=== PATIENT | female | born 1960 ===

== ENCOUNTER 2024-05-28 10:16 | Outpatient (AMB) | payer BC, SELFPAY ==
[2024-05-28 10:44] VITALS: BP 130/70; PULSE 83; O2SAT 95; BMI 52.1
--- NOTE | 2024-05-28 10:44 | A.OFFVIS_ITS ---
Vital Signs 05/28/24 10:44 Height 5 ft 4 in Weight 303 lb 5.697 oz BMI 52.1 BP 130/70 Blood Pressure Location Lt brachial Pulse 83 Pulse Source Pulse Oximeter Pulse Oximetry (%) 95 Oxygen Delivery Method Room Air Intake Visit Reasons: RA//RECORDS RECEIVED Intake Note: Patient presents today for rheumatoid arthritis. She states it's in her hands and feet. Allergies sulfamethoxazole [From Bactrim] Allergy (Mild, Verified 05/28/24 10:47) rash trimethoprim [From Bactrim] Allergy (Mild, Verified 05/28/24 10:47) rash hair dye Allergy (Mild, Uncoded 05/28/24 10:47) Rash HPI HPI RA//RECORDS RECEIVED: Details: Continues to take HCQ 200mg BID for inflammatory arthritis. She has noted no change in symptoms since being on hydroxychloroquine. 03/25 started Nplate by insulation batting machine operator Dr. Bobby ([place]) in place of promata. Failed prednisone, RTX, promata for ITP. She has recieved platelet infusion. Rheumatology records reviewed from [facility]. Rheumatology history: Referred by insulation batting machine operator for evaluation due to history of ITP and concern for autoimmune disease. Patient was found to have positive rheumatoid factor 48 and anti CCP antibody positivity high titer with clinical synovitis in bilateral MCPs. Although patient with asymptomatic, hydroxych loroquine was started 11/27/2023. Patient has JUDY positivity 1:320 but no other signs or symptoms suggestive of SLE. She also has a history of bursitis of her left shoulder and osteoarthritis of her knee. Review of Systems Const All systems reviewed & are unremarkable except as noted in HPI and below Physical Exam Vital Signs: Last Vital Signs Pulse 83 05/28/24 10:44 BP 130/70 05/28/24 10:44 Pulse Ox 95 05/28/24 10:44 Oxygen Delivery Method Room Air 05/28/24 10:44 BMI result Body Mass Index 52.1 Const General: cooperative and healthy appearing Resp Effort & Inspection: normal respiratory effort Auscultation: clear to auscultation bilaterally Cardio Rate: regular rate Rhythm: regular rhythm Heart sounds: S1 normal heart sound present and S2 normal heart sound present Extrem Other: Soft tissue swelling bilateral MCPs. No tenderness on palpation. Range of motion of upper extremity and lower extremities are intact. No MTP tenderness Results Reviewed Results Reviewed: Labs from 10/28/2023 reviewed from [facility] Assessment & Plan Assessment & Plan (1) Rheumatoid arthritis: Comment: Synovitis in bilateral MCPs are persistent despite being on hydroxychloroquine since November. She denies having pain in MCPs or any functional limitation in her hands. We discussed getting MRI of her right hand to confirm that she has inflammatory arthritis in that the soft tissue swelling is not related to subcutaneous fat as it will change management lead with addition of DMARD therapy. Code(s): M06.9 - Rheumatoid arthritis, unspecified Category: Medical Plan: Continue hydroxychloroquine 400 mg daily Will obtain baseline testing for ocular toxicity with OCT and visual field test Labs ordered for disease and drug monitoring. Patient receives weekly labs prior to Nplate injections as she receives weekly in Hematology office. Patient prefers to have labs done next week in Hematology office. 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 Bobby Code(s): Z86.2 - Personal history of diseases of the blood and blood-forming organs and certain disorders involving the immune mechanism Category: Medical Plan: Treatment per insulation batting machine operator Avoid oral NSAIDs in setting of ITP Plan . Orders: Orders Aspartate Amino Transferase Today M06.9 - Rheumatoid arthritis, unspecified, Z79.899 - Other skilled nursing (current) drug therapy C Reactive Protein Today M06.9 - Rheumatoid arthritis, unspecified, Z79.899 - Other regional intermodal truck driver (current) drug therapy Erythrocyte Sedimentation Rate Today M06.9 - Rheumatoid arthritis, unspecified, Z79.899 - Other regional intermodal truck driver (current) drug therapy MR hand RT w con Today M06.9 - Rheumatoid arthritis, unspecified, Z79.899 - Other regional intermodal truck driver (current) drug therapy Alanine Aminotransferase Today M06.9 - Rheumatoid arthritis, unspecified, Z79.899 - Other skilled nursing (current) drug therapy Complete Blood Count Auto Diff Today M06.9 - Rheumatoid arthritis, unspecified, Z79.899 - Other skilled nursing (current) drug therapy Creatinine Today M06.9 - Rheumatoid arthritis, unspecified, Z79.899 - Other skilled nursing (current) drug therapy Coding Level of Care Code Est Pt Level 4 (93406) Complex EM visit Add On G2211 Diagnoses Rheumatoid arthritis M06.9 Other regional intermodal truck driver (current) drug therapy Z79.899 History of ITP Z86.2
== END 2024-05-28 11:26 | disposition home or self-care (01) ==
PROVIDERS: PCP Internal Medicine; Visit Provider Internal Medicine Rheumatology
DX: M06.9 Rheumatoid arthritis, unspecified (principal); Z79.899 Other long term (current) drug therapy; Z86.2 Personal history of diseases of the blood and blood-forming organs and certain disorders involving the immune mechanism
CPT/HCPCS: 99214

== ENCOUNTER → 2024-05-28 10:16 | Outpatient (BNVA) | payer BC, SELFPAY | PROVIDERS: PCP Internal Medicine; Visit Provider Internal Medicine Rheumatology ==

== ENCOUNTER 2024-06-26 10:05 | Outpatient (AMB) | payer BC, SELFPAY ==
[2024-06-26 10:13] VITALS: BP 128/70; PULSE 94; O2SAT 98; BMI 48.8
--- NOTE | 2024-06-26 10:13 | A.OFFVIS_ITS ---
Vital Signs 06/26/24 10:13 Height 5 ft 4 in Weight 284 lb 6.341 oz BMI 48.8 BP 128/70 Blood Pressure Location Lt brachial Position Sitting Pulse 94 Pulse Source Pulse Oximeter Pulse Oximetry (%) 98 Oxygen Delivery Method Room Air Intake Visit Reasons: Rt knee pain/swelling Intake Note: Patient presents for follow up on right knee paina nd swelling whic has gotten worse since last seen. Allergies sulfamethoxazole [From Bactrim] Allergy (Mild, Verified 06/26/24 10:16) rash trimethoprim [From Bactrim] Allergy (Mild, Verified 06/26/24 10:16) rash hair dye Allergy (Mild, Uncoded 06/26/24 10:16) Rash HPI HPI Rt knee pain/swelling: Details: A week ago her right knee gave out on her and she almost fell. Denies any precipitating incident, motor vehicle accident, fall/slipping. Since a week she has been experiencing right knee pain worse than left knee pain. She has not been self medicating. She stays at home. June 15 platelet count a 122 per patient. Review of Systems Const All systems reviewed & are unremarkable except as noted in HPI and below Physical Exam Vital Signs: Last Vital Signs Pulse 94 06/26/24 10:13 BP 128/70 06/26/24 10:13 Pulse Ox 98 06/26/24 10:13 Oxygen Delivery Method Room Air 06/26/24 10:13 BMI result Body Mass Index 48.8 Const Other: General: Comfortable Skin: No lesions seen MSK: Tender to palpate right knee with mild effusion present. She has limited full flexion of bilateral knees. Bony hypertrophy right knee greater than left knee present. Assessment & Plan Assessment & Plan (1) Knee pain, bilateral: Comment: Right knee pain greater than left knee pain with development of right knee effusion status post knee giving out on her a week ago. She has history of ITP and is at risk for hemarthrosis. It is likely that she has exacerbated underlying osteoarthritis. We discussed conservative management. Code(s): M25.561 - Pain in right knee; M25.562 - Pain in left knee Category: Medical Qualifiers: Chronicity: acute Qualified Code(s): M25.561 - Pain in right knee; M25.562 - Pain in left knee Plan: Bilateral knee x-rays ordered Ice knee twice a day. If we are unable to tolerate ice apply heat to knee twice a day She will contact scientific illustrator/oncologist Dr. Bobby to discuss use of diclofenac gel 1% applied to knee every 4-6 hours as needed Right Knee brace prescribed. Prescription given to patient with medical supply list. If pain and swelling does not subside in 2 weeks, recommend calling office to start physical therapy Return to clinic in July after MRI hand Orders: Orders XR knee standing BI Today M25.561 - Pain in right knee, M25.562 - Pain in left knee Medications: New leg brace (Knee Support Brace) As directed. Hinged knee brace Dx: osteoarthritis 1 ea 0RF leg brace (Knee Support Brace) As directed. Hinged knee brace Dx: osteoarthritis 1 ea 0RF Coding Level of Care Code Est Pt Level 3 (66813) Complex EM visit Add On G2211 Diagnoses Acute pain of both knees M25.561; M25.562 Chronicity: acute
== END 2024-06-26 11:03 | disposition home or self-care (01) ==
PROVIDERS: PCP Internal Medicine; Visit Provider Internal Medicine Rheumatology
DX: M25.561 Pain in right knee (principal); M25.562 Pain in left knee
CPT/HCPCS: 99213

== ENCOUNTER 2024-06-27 10:49 | Outpatient (REF) | payer BC, SELFPAY ==
--- NOTE | ~2024-06-27 | XR_ITS ---
EXAMINATION: XR KNEE, LEFT CLINICAL INFORMATION: PAIN LT KNEE COMPARISON: None available. TECHNIQUE: Two upright views of the left knee. FINDINGS: Mild to moderate osteoarthritis of the medial compartment with marginal osteophytes and mild joint space narrowing. Lateral compartment normal. Patellofemoral compartment: Mild osteoarthritis with marginal osteophytes noted. 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 XR/XR knee LT 2V IMPRESSION: Osteoarthritis of the left knee with degenerative changes mild to moderate in the medial compartment. Bone infarction Electronically signed by: Abhi Mccormick MD 06/28/2024 09:04 PM EST
--- NOTE | ~2024-06-27 | XR_ITS ---
EXAMINATION: XR KNEE, RIGHT CLINICAL INFORMATION: M25.561 - Pain in right knee COMPARISON: None available. TECHNIQUE: Two views of the right knee. FINDINGS: Mild to moderate osteoarthritis the medial compartment with marginal osteophytes and joint space narrowing. Mild osteoarthritis of lateral compartment with marginal osteophytes without joint space narrowing. Patellofemoral compartment: Marginal osteophytes indicative of at least mild osteoarthritis. No effusion. Irregular sclerotic density in the distal femoral metaphysis and proximal tibial metaphysis with appearance most compatible with old bone infarcts. XR/XR knee RT 2V IMPRESSION: Osteoarthritis of the right knee with degenerative changes mild to moderate in the medial compartment. Bone infarction Electronically signed by: Abhi Mccormick MD 06/28/2024 09:03 PM [facility]
== END 2024-06-27 10:50 | disposition home or self-care (01) ==
LOC: HO.HMGCX 10:49
PROVIDERS: PCP Internal Medicine; Visit Provider Internal Medicine Rheumatology
DX: M25.561 Pain in right knee (principal); M25.562 Pain in left knee
CPT/HCPCS: 73560

== ENCOUNTER → 2024-07-18 10:15 | Outpatient (BNV) | payer BC, SELFPAY | PROVIDERS: PCP Internal Medicine; Visit Provider Radiology Diagnostic Radiology | DX: M15.4 Erosive (osteo)arthritis (principal) | CPT/HCPCS: 73220 ==

== ENCOUNTER 2024-07-18 10:42 | Outpatient (REF) | payer BC, SELFPAY ==
--- NOTE | ~2024-07-18 | MR_ITS ---
EXAMINATION: MR HAND WITHOUT THEN WITH IV CONTRAST RIGHT HISTORY: M06.9 - Rheumatoid arthritis, unspecified. TECHNIQUE: Coronal T1 and fat-suppressed T2, sagittal STIR, and axial T1, T2, and fat suppressed T2-weighted MR images of the right hand were obtained. Subsequently, axial and coronal fat-suppressed T1-weighted images were obtained after the intravenous administration of 10 mL Gadavist. COMPARISON: There are no prior studies for comparison. FINDINGS: There are tiny erosions noted in the 2nd and 4th metacarpal heads. There is no adjacent bone marrow edema. No additional erosions is seen. Remaining bone marrow signal intensity is normal. There is mild joint space narrowing involving the MCP joints. No periarticular edema or enhancement is seen. No tendon or ligamentous abnormality is identified. There are no abnormal fluid collections. MR/MR hand RT wo/w con IMPRESSION: Tiny erosions of the 2nd and 4th metacarpal heads mild narrowing of the MCP joints. No bone marrow or soft tissue edema or abnormal enhancement is seen to suggest active inflammation. Electronically signed by: Javon Guerrero MD 07/24/2024 09:40 AM EST
[2024-07-18] MEDS: gadobutroL 10 ML VIAL IVPUSH (12:01)
== END 2024-07-18 10:43 | disposition home or self-care (01) ==
LOC: HO.MRI 10:42
PROVIDERS: PCP Internal Medicine; Visit Provider Internal Medicine Rheumatology
DX: M06.9 Rheumatoid arthritis, unspecified (principal)
CPT/HCPCS: 73220; A9585

== ENCOUNTER 2024-07-29 09:15 | Outpatient (REF) | payer BC, SELFPAY | END 2024-07-29 09:16 | disposition home or self-care (01) | LOC: HO.HOSX 09:15 | PROVIDERS: Visit Provider Physician Assistant | DX: Z13.89 Encounter for screening for other disorder (principal) ==

== ENCOUNTER 2024-07-30 14:00 | Outpatient (REF) | payer BC, SELFPAY | END 2024-07-30 14:01 | disposition home or self-care (01) | LOC: HO.HOSX 14:00 | PROVIDERS: PCP Internal Medicine; Visit Provider Physician Assistant | DX: M25.569 Pain in unspecified knee (principal) ==

== ENCOUNTER 2024-07-31 09:48 | Outpatient (AMB) | payer BC, SELFPAY ==
--- NOTE | 2024-07-31 09:59 | A.OFFVIS_ITS ---
Vital Signs 07/31/24 10:00 Height 5 ft 4 in Weight 280 lb BMI 48.1 BP 128/72 Blood Pressure Location Lt brachial Position Sitting Pulse 82 Pulse Source Pulse Oximeter Pulse Oximetry (%) 98 Oxygen Delivery Method Room Air Intake Visit Reasons: Follow up 2 mo Intake Note: Patient presents for follow up on knee pain. She would like to talk about her x- rays. Patient would like to talk about hydroxychloroquine. Allergies sulfamethoxazole [From Bactrim] Allergy (Mild, Verified 07/31/24 10:04) rash trimethoprim [From Bactrim] Allergy (Mild, Verified 07/31/24 10:04) rash hair dye Allergy (Mild, Uncoded 07/31/24 10:04) Rash HPI HPI Follow up 2 mo: Details: Improved knee pain. Pain is now intermittent. She d/c tylenol due to benefit with using diclofenac gel 1% (approved use by supervisor knitting). No new joint swelling. Last platelet count [id number] last Monday. Denies morning stiffness. Review of Systems Const All systems reviewed & are unremarkable except as noted in HPI and below Physical Exam Vital Signs: Last Vital Signs Pulse 82 07/31/24 10:00 BP 128/72 07/31/24 10:00 Pulse Ox 98 07/31/24 10:00 Oxygen Delivery Method Room Air 07/31/24 10:00 BMI result Body Mass Index 48.1 Const Other: General: Comfortable CVS: RRR Respiratory: clear to auscultation bilaterally. Good respiratory effort Skin: No lesions seen MSK: No tenderness of any joints. She has soft tissue swelling around MCPs. No synovitis Good range of motion of upper extremities. Knee flexion 100 degrees bilateral. External rotation of bilateral hips is limited. Assessment & Plan Assessment & Plan (1) Rheumatoid arthritis: Comment: Seropositive (RF, CCP, JUDY high titer). MRI reveals tiny joint erosion right 2nd and 4th MCPs with joint space narrowing. There is no mention of synovitis (sign of active inflammatory arthritis). She is currently on hydroxychloroquine. She denies joint pain and stiffness. We discussed changing hydroxychloroquine to methotrexate to prevent radiographic progression of inflammatory arthritis as methotrexate as a better agent to use. We discussed risk of immunosuppression including bone marrow suppression. I will monitor her CBC monthly. Code(s): M06.9 - Rheumatoid arthritis, unspecified Category: Medical Plan: Discontinue hydroxychloroquine Labs up-to-date from 06/28/2024 Start methotrexate 10 mg once weekly Start folic acid 1 mg daily Lab requisition given to patient to have CBC checked monthly and creatinine, AST, ALT checked next month. She does labs weekly at her supervisor knitting's office. 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 Bobby Code(s): Z86.2 - Personal history of diseases of the blood and blood-forming organs and certain disorders involving the immune mechanism Category: Medical Plan: Treatment per supervisor knitting Avoid oral NSAIDs in setting of ITP (4) Osteoarthritis of knees, bilateral: Comment: Improved pain with bracing and diclofenac gel. Code(s): M17.0 - Bilateral primary osteoarthritis of knee Category: Medical Qualifiers: Osteoarthritis type: primary Qualified Code(s): M17.0 - Bilateral primary osteoarthritis of knee Plan: Continue to use diclofenac gel 1% applied to affected area every 4-6 hours as needed Continue to use knee brace I recommended obtaining ice knee wrap from [employer] when needed for knee flares PT ordered. She has an upcoming PT appointment for knee strengthening. We discussed importance of consistency with exercise program at home Return to clinic in 3 months Plan . Orders: Orders Alanine Aminotransferase 1 Month Z79.60 - adjunct faculty for medical terminology (current) use of unspecified immunomodulators and immunosuppressants Aspartate Amino Transferase 1 Month Z79.60 - correction (current) use of unspecified immunomodulators and immunosuppressants Complete Blood Count Auto Diff 08/31/24 Z79.60 - adjunct faculty for medical terminology (current) use of unspecified immunomodulators and immunosuppressants Complete Blood Count Auto Diff 10/30/24 Z79.60 - adjunct faculty for medical terminology (current) use of unspecified immunomodulators and immunosuppressants Complete Blood Count Auto Diff 02/27/25 Z79.60 - correction (current) use of unspecified immunomodulators and immunosuppressants Complete Blood Count Auto Diff 04/28/25 Z79.60 - correction (current) use of unspecified immunomodulators and immunosuppressants Complete Blood Count Auto Diff 06/27/25 Z79.60 - correction (current) use of unspecified immunomodulators and immunosuppressants Complete Blood Count Auto Diff 1 Month Z79.60 - adjunct faculty for medical terminology (current) use of unspecified immunomodulators and immunosuppressants Creatinine 1 Month Z79.60 - adjunct faculty for medical terminology (current) use of unspecified immunomodulators and immunosuppressants Complete Blood Count Auto Diff 09/30/24 Z79.60 - adjunct faculty for medical terminology (current) use of unspecified immunomodulators and immunosuppressants Complete Blood Count Auto Diff 11/29/24 Z79.60 - correction (current) use of unspecified immunomodulators and immunosuppressants Complete Blood Count Auto Diff 12/29/24 Z79.60 - correction (current) use of unspecified immunomodulators and immunosuppressants Complete Blood Count Auto Diff 01/28/25 Z79.60 - correction (current) use of unspecified immunomodulators and immunosuppressants Complete Blood Count Auto Diff 03/29/25 Z79.60 - correction (current) use of unspecified immunomodulators and immunosuppressants Complete Blood Count Auto Diff 05/28/25 Z79.60 - adjunct faculty for medical terminology (current) use of unspecified immunomodulators and immunosuppressants Complete Blood Count Auto Diff 07/27/25 Z79.60 - adjunct faculty for medical terminology (current) use of unspecified immunomodulators and immunosuppressants Medications: New folic acid 1 mg PO DAILY 90 tabs 3RF methotrexate sodium 10 mg (4 x 2.5 mg) PO QWEEK 16 tabs 0RF Coding Level of Care Code Est Pt Level 4 (67862) Complex EM visit Add On G2211 Diagnoses Rheumatoid arthritis M06.9 Other jail (current) drug therapy Z79.899 History of ITP Z86.2 Primary osteoarthritis of both knees M17.0 Osteoarthritis type: primary
[2024-07-31 10:00] VITALS: BP 128/72; PULSE 82; O2SAT 98; BMI 48.1
== END 2024-07-31 10:48 | disposition home or self-care (01) ==
PROVIDERS: PCP Internal Medicine; Visit Provider Internal Medicine Rheumatology
DX: M06.9 Rheumatoid arthritis, unspecified (principal); Z79.899 Other long term (current) drug therapy; Z86.2 Personal history of diseases of the blood and blood-forming organs and certain disorders involving the immune mechanism; M17.0 Bilateral primary osteoarthritis of knee
CPT/HCPCS: 99214

== ENCOUNTER 2024-09-04 10:00 | Outpatient (RCR) | payer BC, SELFPAY ==
--- NOTE | 2024-08-20 13:22 | MHC.PT.EP ---
[facility] [place] Office [place] Office [place] Office [address] [phone] F: [phone] F: [phone] F: [phone] F: [phone] Physical Therapy Plan of Care Date of Evaluation: 08/20/24 Date of Surgery: Diagnosis: knee pain bilateral Assessment: Patient is a 64 year old R handed female who presents with s/s consistent with bilateral knee pain. 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 Current impairments include pain, balance, ROM, strength, activity tolerance and functional mobility. Functional limitations include decreased ability to transfer, stand, walk, negotiate stairs, and perform other weight bearing activities. Patient is motivated with good rehab potential. Skilled PT will address impairments and functional limitations in order to achieve goals. Frequency and Duration: The patient will be seen 1x/week for 6 weeks Short Term Goals: I with HEP -2 weeks AROM b/l 0-120 - 3 weeks TTP absent - 3 weeks Max pain with daily routine 3/10 - 3 weeks Appeals Writer Goals: LEFS 36/80 - 6 weeks Strength 4/5 grossly - 6 weeks Able to walk 20 minutes without increasing pain - 6 weeks Treatment Plan: Modalities to reduce pain, spasms and effusion. Manual therapy to restore motion and function. Therapeutic exercise to improve strength and flexibility. Neuromuscular re-education for posture and balance. Therapeutic activities to return to functional activities of daily living. Electronically signed by: Colin Gale PT Please sign and return to therapist. Thank you for your referral.
--- NOTE | 2024-10-02 10:54 | MHC.PT.DC ---
[facility] [place] Office [place] Office [place] Office [address] Charlee [place] [address] [phone] F: [phone] F: [phone] F: [phone] F: [phone] Physical Therapy Discharge Report Diagnosis: knee pain bilateral Date of Surgery: Date of Evaluation: 08/20/24 Date of Discharge: 09/12/24 Treatments to Date: 2 Cancellations to Date: No Shows to Date: Discharge Status: Patient Elected to Stop Discharge Summary: 09/04; Pt fatigued quickly. Patient is a 64 year old R handed female who presents with s/s consistent with bilateral knee pain. 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 Current impairments include pain, balance, ROM, strength, activity tolerance and functional mobility. Functional limitations include decreased ability to transfer, stand, walk, negotiate stairs, and perform other weight bearing activities. Patient is motivated with good rehab potential. Skilled PT will address impairments and functional limitations in order to achieve goals. Electronically signed by: Colin Gale, PT Please sign and return to therapist. Thank you for your referral.
== END 2024-10-02 10:55 | disposition home or self-care (01) ==
LOC: HO.PTCHIC 10:00
PROVIDERS: PCP Internal Medicine; Visit Provider Internal Medicine Rheumatology
DX: M17.0 Bilateral primary osteoarthritis of knee (principal); M87.9 Osteonecrosis, unspecified; M25.561 Pain in right knee; M25.562 Pain in left knee
CPT/HCPCS: 97110; 97162

== ENCOUNTER 2024-10-02 11:41 | Outpatient (REF) | payer BC, SELFPAY ==
[2024-10-02 18:11] LABS: MANUAL DIFF FLAG NO
[2024-10-02 18:36] LABS: Alanine Aminotransferase 13 U/L (0-31); Aspartate Amino Transferase 17 U/L (5-31); Estimated Glomerular Filt Rate > 60
[2024-10-02 18:39] LABS: Basophils Percent Auto 0.3 % (0-2); Eosinophils Absolute Auto 0.2 X10*3/uL (0.0-0.4); Eosinophils Percent Auto 1.3 % (0-4); Hematocrit 40.7 % (37.0-47.0); Hemoglobin 13.9 g/dl (12.0-16.0); Imm Gran Abs Auto 0.07 X10*3/uL (0.00-0.03); Imm Gran Pct Auto 0.6 % (0.0-0.4); Lymphocytes Percent Auto 25.4 % (20-40); Mean Corpuscular HGB Conc 34.2 g/dl (31.0-35.0); Mean Corpuscular Hemoglobin 30.8 pg (27.0-33.0); Mean Corpuscular Volume 90.2 fL (80.0-98.0); Monocytes Percent Auto 8.2 % (2-11); Neutrophils Absolute Auto 7.6 x10*3/uL (2.0-8.3); Neutrophils Percent Auto 64.2 % (45-73); Red Blood Count 4.51 X10*6/uL (4.20-5.50); Red Cell Distribution Width 14.2 % (11.0-16.0); White Blood Count 11.9 X10*3/uL (4.8-10.8)
[2024-10-02 18:58] LABS: Mean Platelet Volume 12.4 fL (9.4-12.3); Platelet Count 99 X10*3/uL (160-400)
== END 2024-10-02 11:42 | disposition home or self-care (01) ==
LOC: HO.HKASLDS 11:41
PROVIDERS: Visit Provider Internal Medicine Rheumatology
DX: Z79.899 Other long term (current) drug therapy (principal); Z79.60 Long term (current) use of unspecified immunomodulators and immunosuppressants; M06.9 Rheumatoid arthritis, unspecified
CPT/HCPCS: 36415; 82565; 84450; 84460; 85025

== ENCOUNTER 2024-10-30 09:34 | Outpatient (REF) | payer BC, SELFPAY ==
--- OUTSIDE RECORDS SUMMARY | 2024-10-30 12:11 | XMS_ITS | Encounter Summary ---
Author Organization [facility] Address [address] [place] [address] Care Team Providers Care Window Sash Installer Name Role Phone Farrah Felder MD Primary Care Provider +[phone] Angelina Holman PA-C Unavailable [phone] Reason for Visit * Reason Onset Date Comments APPOINTMENT 12/07/2022 Encounter Details Date Type Department Care Team Description 12/07/2022 Telephone Radiology - [address] [address] Farrah Felder MD [address] [place] [phone] APPOINTMENT Social History Tobacco Use Types [...] on filedocumented in this encounter Care Teams Window Sash Installer Relationship Specialty Start Date End Date Farrah Felder MD PCP - General Internal Medicine 12/03/21 Angelina Holman PA-C [address] [place] [phone] Thoracic Surgery 09/04/23 documented as of this encounter
--- OUTSIDE RECORDS SUMMARY | 2024-10-30 12:11 | XMS_ITS | Encounter Summary ---
Author Organization [facility] Address [address] [place] [address] Care Team Providers Care Health Science Writer Name Role Phone Farrah Felder MD Primary Care Provider [phone] Angelina Holman PA-C Unavailable [phone] Encounter Details Date Type Department Care Team Description 12/06/2022 Pt. Non Urgent Medical Question Internal Medicine - [place] 175 [facility], [address] [place] [address] Farrah Felder MD [address] [place] [phone] Social History Tobacco Use Types Packs/Day [...] on filedocumented in this encounter Care Teams Health Science Writer Relationship Specialty Start Date End Date Farrah Felder MD PCP - General Internal Medicine 12/03/21 Angelina Holman PA-C [address] [place] [phone] Thoracic Surgery 09/04/23 documented as of this encounter
--- OUTSIDE RECORDS SUMMARY | 2024-10-30 12:11 | XMS_ITS | Encounter Summary ---
Author Organization [facility] Address [address] [place] [address] Care Team Providers Care Object Oriented Programmer Name Role Phone Farrah Felder MD Primary Care Provider +[phone] Angelina Holman PA-C Unavailable [phone] Encounter Details Date Type Department Care Team Description 10/08/2022 Pt. Non Urgent Medical Question Internal Medicine - [address], [address] [place], [place] [phone] Farrah Felder MD [address] [place] [phone] Social History Tobacco Use Types Packs/Day [...] Internal Medicine 12/03/21 Angelina Holman PA-C [address] [place] [phone] Thoracic Surgery 09/04/23 documented as of this encounter
--- OUTSIDE RECORDS SUMMARY | 2024-10-30 12:11 | XMS_ITS | Encounter Summary ---
Author Organization [facility] Address [address] [place] [address] Care Team Providers Care Technology Solutions Architect Name Role Phone Farrah Felder MD Primary Care Provider +[phone] Angelina Holman PA-C Unavailable [phone] Encounter Details Date Type Department Care Team Description 11/01/2022 Telephone Internal Medicine - [address], [address] [place], [place] [phone] Farrah Felder MD [address] [place] [phone] Social History Tobacco Use Types Packs/Day [...] Miscellaneous Notes * Telephone Encounter - Ernestine Rodriguez - 11/07/2022 12:18 PM EDT 3rd [...] on filedocumented in this encounter Care Teams Technology Solutions Architect Relationship Specialty Start Date End Date Farrah Felder MD PCP - General Internal Medicine 12/03/21 Angelina Holman PA-C [address] [place] [phone] Thoracic Surgery 09/04/23 documented as of this encounter
--- OUTSIDE RECORDS SUMMARY | 2024-10-30 12:11 | XMS_ITS | Encounter Summary ---
Author Organization [facility] Address [address] [place] [address] Care Team Providers Care Quirk Sander Name Role Phone Farrah Felder MD Primary Care Provider +[phone] Angelina Holman PA-C Unavailable [phone] Encounter Details Date Type Department Care Team Description 12/16/2022 Refill Internal Medicine - [place] 175 [facility], [address] [place], [place] [phone] Farrah Felder MD [address] [place] [address] Social History Tobacco Use Types Packs/Day [...] on filedocumented in this encounter Care Teams Quirk Sander Relationship Specialty Start Date End Date Farrah Felder MD PCP - General Internal Medicine 12/03/21 Angelina Holman PA-C [address] [phone] Thoracic Surgery 09/04/23 documented as of this encounter
--- OUTSIDE RECORDS SUMMARY | 2024-10-30 12:12 | XMS_ITS | Encounter Summary ---
Author Organization [facility] Address [address] [facility] [place] [address] Care Team Providers Care Water Pollution Control Technician Name Role Phone Farrah Felder MD Primary Care Provider [phone] Angelina Holman PA-C Unavailable Encounter Details Date Type Department Care Team Description 08/15/2023 Heat Sealing Machine Operator Report Medical Records 4 [place] [address] Jose Carlos Ponce MD Social History Tobacco [...] on filedocumented in this encounter Care Teams Water Pollution Control Technician Relationship Specialty Start Date End Date Farrah Felder MD PCP - General Internal Medicine 12/03/21 Angelina Holman PA-C [address] [place] [phone] Thoracic Surgery 09/04/23 documented as of this encounter
--- OUTSIDE RECORDS SUMMARY | 2024-10-30 12:12 | XMS_ITS | Encounter Summary ---
Author Organization [facility] Address [address] [place] [address] Care Team Providers Care Centrifugal Casting Machine Operator Name Role Phone Farrah Felder MD Primary Care Provider [phone] Angelina Holman PA-C Unavailable [phone] Encounter Details Date Type Department Care Team Description 08/08/2023 Pt. Non Urgent Medical Question Internal Medicine - [place] 175 [facility], [address] [place] [address] Farrah Felder MD [address] [place] [phone] Social History Tobacco Use Types Packs/Day [...] on filedocumented in this encounter Care Teams Centrifugal Casting Machine Operator Relationship Specialty Start Date End Date Farrah Felder MD PCP - General Internal Medicine 12/03/21 Angelina Holman PA-C [address] [place] [phone] Thoracic Surgery 09/04/23 documented as of this encounter
--- OUTSIDE RECORDS SUMMARY | 2024-10-30 12:12 | XMS_ITS | Encounter Summary ---
Author Organization [facility] Address [address] [place] [address] Care Team Providers Care Wood Model Maker Name Role Phone Farrah Felder MD Primary Care Provider [phone] Angelina Holman PA-C Unavailable [phone] Encounter Details Date Type Department Care Team Description 07/24/2023 Pt. Non Urgent Medical Question Internal Medicine - [place] 175 [facility], [address] [place] [address] Farrah Felder MD [address] [place] [phone] Social History Tobacco Use Types Packs/Day [...] on filedocumented in this encounter Care Teams Wood Model Maker Relationship Specialty Start Date End Date Farrah Felder MD PCP - General Internal Medicine 12/03/21 Angelina Holman PA-C [address] [place] [phone] Thoracic Surgery 09/04/23 documented as of this encounter
--- OUTSIDE RECORDS SUMMARY | 2024-10-30 12:12 | XMS_ITS | Encounter Summary ---
Author Organization [facility] Address [address] [place] [address] Care Team Providers Care Pilot Instructor Name Role Phone Shama Shafer MD Primary Care Provider [phone] Farrah Felder MD Primary Care Provider [phone] Angelina Holman PA-C Unavailable [phone] Encounter Details Date Type Department Care Team Description 07/17/2017 Slot Supervisor Report Medical Records [address] [place] [address] Olga Lidia Chang PA-C [address] [place] [phone] Social History Tobacco Use Types Packs/Day Years [...] on filedocumented in this encounter Care Teams Pilot Instructor Relationship Specialty Start Date End Date Shama Shafer MD [address] [place] [address] PCP - General Internal Medicine 04/29/11 12/02/21 Farrah Felder MD [address] [place] [address] PCP - General Internal Medicine 12/03/21 Angelina Holman PA-C [address] [phone] Thoracic Surgery 09/04/23 documented as of this encounter
--- OUTSIDE RECORDS SUMMARY | 2024-10-30 12:12 | XMS_ITS | Encounter Summary ---
Author Organization [facility] Address [address] [facility] [place] [address] Care Team Providers Care Worsted Winder Name Role Phone Farrah Felder MD Primary Care Provider +[phone] Angelina Holman PA-C Unavailable [phone] Encounter Details Date Type Department Care Team Description 11/09/2023 Orders Only Medical Records [address] [place] [address] Fabián Suárez MD Social History Tobacco Use [...] Date/Time Associated Diagnosis Comments OUTSIDE LAB Routine 11/08/2023 documented in this encounter Results * OUTSIDE LAB (11/08/2023) [facility] documented in this encounter Visit Diagnoses Not on filedocumented in this encounter Care Teams Worsted Winder Relationship Specialty Start Date End Date Farrah Felder MD PCP - General Internal Medicine 12/03/21 Angelina Holman PA-C [address] [phone] Thoracic Surgery 09/04/23 documented as of this encounter
--- OUTSIDE RECORDS SUMMARY | 2024-10-30 12:12 | XMS_ITS | Encounter Summary ---
Author Organization [facility] Address [address] [facility] [place] [address] Care Team Providers Care Executive Asst Name Role Phone Farrah Felder MD Primary Care Provider [phone] Angelina Holman PA-C Unavailable [phone] Encounter Details Date Type Department Care Team Description 03/09/2023 Orders Only Medical Records 4 [place] [address] Abstract, Provider Social History Tobacco Use Types [...] on filedocumented in this encounter Care Teams Executive Asst Relationship Specialty Start Date End Date Farrah Felder MD PCP - General Internal Medicine 12/03/21 Angelina Holman PA-C [address] [place] [phone] Thoracic Surgery 09/04/23 documented as of this encounter
--- OUTSIDE RECORDS SUMMARY | 2024-10-30 12:12 | XMS_ITS | Encounter Summary ---
Author Organization [facility] Address [address] [facility] [place] [address] Care Team Providers Care Manager Internet Retails Sales Name Role Phone Farrah Felder MD Primary Care Provider [phone] Angelina Holman PA-C Unavailable [phone] Encounter Details Date Type Department Care Team Description 05/11/2023 Orders Only Medical Records [facility] [facility] [place] [address] Fabián Suárez MD Social History Tobacco Use [...] Date/Time Associated Diagnosis Comments OUTSIDE LAB Routine 05/10/2023 documented in this encounter Results * OUTSIDE LAB (05/10/2023) Fabián Suárez MD LAB documented in this encounter Visit Diagnoses Not on filedocumented in this encounter Care Teams Manager Internet Retails Sales Relationship Specialty Start Date End Date Farrah Felder MD PCP - General Internal Medicine 12/03/21 Angelina Holman PA-C [address] [place] [phone] Thoracic Surgery 09/04/23 documented as of this encounter
--- OUTSIDE RECORDS SUMMARY | 2024-10-30 12:12 | XMS_ITS | Encounter Summary ---
Author Organization [facility] [place] [address] Care Team Providers Care Biological Plant Operator Name Role Phone Farrah Felder MD Primary Care Provider [phone] Encounter Details Date Type Department Care Team [...] care for your loved ones. For example, assistant child care teacher or elderly care for an older [...] of next appts provided, pt sees Dr. Bboby prior to next treatment, she will get labs drawn downstairs prior to seeing MD and ask them to send STAT. Pt left amb, stable at D/C. documented in this encounter Plan of Treatment Upcoming Encounters Date Type Department Care Team (Late st Contact Info) Description 11/04/2024 10:00 AM EDT Appointment [facility] [address] [phone] 12/11/2024 10:30 AM EDT Office Visit [facility] Hematology Oncology [address] [place] [address] Michelle-Fabián Bobby MD [address] [place] [address] 03/06/2025 11:30 AM EDT Office Visit Pulmonolgy - [place] [address] [phone] Leisa Infante MD [address] [address] documented as of this encounter Visit Diagnoses Not on filedocumented in this encounter Care Teams Biological Plant Operator Relationship Specialty Start Date End Date Farrah Felder MD PCP - General Internal Medicine 12/03/21 05/12/24 documented as of this encounter
--- OUTSIDE RECORDS SUMMARY | 2024-10-30 12:12 | XMS_ITS | Encounter Summary ---
Author Organization [facility] Address [address] [place] [address] Care Team Providers Care Manager Steel Name Role Phone Farrah Felder MD Primary Care Provider [phone] Angelina Holman PA-C Unavailable [phone] Encounter Details Date Type Department Care Team Description 04/14/2023 Orders Only Medical Records [address] [place] [address] Farrah Felder MD [address] [place] [phone] Social History Tobacco Use Types Packs/Day [...] Date/Time Associated Diagnosis Comments OUTSIDE LAB Routine 04/14/2023 documented in this encounter Results * OUTSIDE LAB (04/14/2023) Farrah Felder MD LAB documented in this encounter Visit Diagnoses Not on filedocumented in this encounter Care Teams Manager Steel Relationship Specialty Start Date End Date Farrah Felder MD PCP - General Internal Medicine 12/03/21 Angelina Holman PA-C [address] [place] [phone] Thoracic Surgery 09/04/23 documented as of this encounter
--- OUTSIDE RECORDS SUMMARY | 2024-10-30 12:12 | XMS_ITS | Encounter Summary ---
Author Organization [facility] Address [address] [place] [address] Care Team Providers Care Flight Surgeon Name Role Phone Farrah Felder MD Primary Care Provider [phone] Angelina Holman PA-C Unavailable [phone] Encounter Details Date Type Department Care Team Description 12/04/2023 Pt. Non Urgent Medical Question Internal Medicine - [address], [address] [place], [place] [phone] Farrah Felder MD [address] [place] [phone] Social History Tobacco Use Types Packs/Day [...] on filedocumented in this encounter Care Teams Flight Surgeon Relationship Specialty Start Date End Date Farrah Felder MD PCP - General Internal Medicine 12/03/21 Angelina Holman PA-C [address] [place] [phone] Thoracic Surgery 09/04/23 documented as of this encounter
--- OUTSIDE RECORDS SUMMARY | 2024-10-30 12:12 | XMS_ITS | Encounter Summary ---
Author Organization [facility] Address [address] [place] [address] Care Team Providers Care Medical Sales Consultant Name Role Phone Farrah Felder MD Primary Care Provider [phone] Angelina Holman PA-C Unavailable Encounter Details Date Type Department Care Team Description 09/04/2023 Front Office Developer Report Medical Records [address] [place] [address] [facility] [address] [place] [address] Social History Tobacco Use Types Packs/Day Years [...] filedocumented in this encounter Care Teams Medical Sales Consultant Relationship Specialty Start Date End Date Farrah Felder MD PCP - General Internal Medicine 12/03/21 Angelina Holman PA-C [address] [phone] Thoracic Surgery 09/04/23 documented as of this encounter
--- OUTSIDE RECORDS SUMMARY | 2024-10-30 12:12 | XMS_ITS | Encounter Summary ---
Author Organization [facility] Address [address] [place] [address] Care Team Providers Care Career Development Counselor Name Role Phone Farrah Felder MD Primary Care Provider [phone] Angelina Holman PA-C Unavailable [phone] Encounter Details Date Type Department Care Team Description 08/08/2023 Pt. Non Urgent Medical Question Internal Medicine - [place] 175 [facility], [address] [place] [address] Farrah Felder MD [address] [place] [phone] Social History Tobacco Use Types Packs/Day [...] on filedocumented in this encounter Care Teams Career Development Counselor Relationship Specialty Start Date End Date Farrah Felder MD PCP - General Internal Medicine 12/03/21 Angelina Holman PA-C [address] [place] [phone] Thoracic Surgery 09/04/23 documented as of this encounter
--- OUTSIDE RECORDS SUMMARY | 2024-10-30 12:12 | XMS_ITS | Encounter Summary ---
Author Organization [facility] Address [address] [facility] [place] [address] Care Team Providers Care Drug Abuse Social Worker Name Role Phone Shama Shafer MD Primary Care Provider [phone] Farrah Felder MD Primary Care Provider [phone] Angelina Holman PA-C Unavailable [phone] Encounter Details Date Type Department Care Team Description 11/25/2016 Telephone Adult Medicine [address] [phone] Shama Shafer MD [address] [place] [address] Social History Tobacco Use Types Packs/Day [...] on filedocumented in this encounter Care Teams Drug Abuse Social Worker Relationship Specialty Start Date End Date Shama Shafer MD [address] [place] [address] PCP - General Internal Medicine 04/29/11 12/02/21 Farrah Felder MD [address] [place], [place] [phone] PCP - General Internal Medicine 12/03/21 Angelina Holman PA-C [address] [phone] Thoracic Surgery 09/04/23 documented as of this encounter
--- OUTSIDE RECORDS SUMMARY | 2024-10-30 12:12 | XMS_ITS | Encounter Summary ---
Author Organization [facility] Address [address] [place] [address] Care Team Providers Care Bargain Table Clerk Name Role Phone Farrah Felder MD Primary Care Provider +[phone] Angelina Holman PA-C Unavailable [phone] Encounter Details Date Type Department Care Team Description 09/06/2023 Pt. Non Urgent Medical Question Pulmonology - [place] [address] [phone] Leisa Infante MD [address] [phone] Social History Tobacco Use Types [...] on filedocumented in this encounter Care Teams Bargain Table Clerk Relationship Specialty Start Date End Date Farrah Felder MD PCP - General Internal Medicine 12/03/21 Angelina Holman PA-C [address] [place] [phone] Thoracic Surgery 09/04/23 documented as of this encounter
--- OUTSIDE RECORDS SUMMARY | 2024-10-30 12:12 | XMS_ITS | Encounter Summary ---
Author Organization [facility] [place] [address] Care Team Providers Care Vehicle Fuel Systems Converter Name Role Phone Farrah Felder MD Primary Care Provider [phone] Encounter Details Date Type Department Care Team [...] for your loved ones. For example, child & adolescent psychiatrist or elderly care for an older adult? [...] [facility] [address] [address] 12/11/2024 10:30 AM EDT Office Visit [facility] Hematology Oncology [address] [place] [address] Michelle-Fabián Bobby MD [address] [place] [address] 03/06/2025 11:30 AM EDT Office Visit Pulmonolgy - [place] [address] [phone] Leisa Infante MD [address] [address] documented as of this encounter Visit Diagnoses Not on filedocumented in this encounter Care Teams Vehicle Fuel Systems Converter Relationship Specialty Start Date End Date Farrah Felder MD PCP - General Internal Medicine 12/03/21 05/12/24 documented as of this encounter
--- OUTSIDE RECORDS SUMMARY | 2024-10-30 12:12 | XMS_ITS | Encounter Summary ---
Author Organization [facility] Address [address] [place] [address] Care Team Providers Care Aircraft Structural Repairer Name Role Phone Farrah Felder MD Primary Care Provider +[phone] Angelina Holman PA-C Unavailable [phone] Encounter Details Date Type Department Care Team Description 09/25/2023 Pt. Non Urgent Medical Question Internal Medicine - [address], [address] [place], [place] [phone] Farrah Felder MD [address] [place] [phone] Social History Tobacco Use Types Packs/Day [...] on filedocumented in this encounter Care Teams Aircraft Structural Repairer Relationship Specialty Start Date End Date Farrah Felder MD PCP - General Internal Medicine 12/03/21 Angelina Holman PA-C [address] [place] [phone] Thoracic Surgery 09/04/23 documented as of this encounter
--- OUTSIDE RECORDS SUMMARY | 2024-10-30 12:12 | XMS_ITS | Encounter Summary ---
Author Organization [facility] Address [address] [place] [address] Care Team Providers Care Continuous Miner Name Role Phone Farrah Felder MD Primary Care Provider +[phone] Angelina Holman PA-C Unavailable [phone] Encounter Details Date Type Department Care Team Description 05/24/2023 Refill Pulmonology - [place] [address] [phone] Leisa Infante MD [address] [place] [phone] Social History Tobacco Use Types Packs/Day [...] Duplicate Mychart Request. * Telephone Encounter - Fanny Samuel - 05/25/2023 10:52 AM EST CARLOS 01/25/23 NOV 05/30/23 documented in this encounter Plan of Treatment Not on file documented as of this encounter Visit Diagnoses Diagnosis Chronic obstructive pulmonary disease, unspecified COPD type (HCC) documented in this encounter Care Teams Continuous Miner Relationship Specialty Start Date End Date Farrah Felder MD PCP - General Internal Medicine 12/03/21 Angelina Holman PA-C [address] [place] [phone] Thoracic Surgery 09/04/23 documented as of this encounter
--- OUTSIDE RECORDS SUMMARY | 2024-10-30 12:12 | XMS_ITS | Encounter Summary ---
Author Organization [facility] Address [address] [facility] [place] [address] Care Team Providers Care Promotions Assistant Name Role Phone Shama Shafer MD Primary Care Provider [phone] Farrah Felder MD Primary Care Provider [phone] Angelina Holman PA-C Unavailable [phone] Encounter Details Date Type Department Care Team Description 07/24/2017 SCAN Medical Records [address] [place] [address] Abstract, Provider Social History Tobacco Use Types [...] on filedocumented in this encounter Care Teams Promotions Assistant Relationship Specialty Start Date End Date Shama Shafer MD [address] [place] [address] PCP - General Internal Medicine 04/29/11 12/02/21 Farrah Felder MD [address] [place] [address] PCP - General Internal Medicine 12/03/21 Angelina Holman PA-C [address] [place] [phone] Thoracic Surgery 09/04/23 documented as of this encounter
--- OUTSIDE RECORDS SUMMARY | 2024-10-30 12:12 | XMS_ITS | Encounter Summary ---
Author Organization [facility] Address [address] [facility] [place] [address] Care Team Providers Care Field Nurse Name Role Phone Farrah Felder MD Primary Care Provider [phone] Angelina Holman PA-C Unavailable [phone] Encounter Details Date Type Department Care Team Description 01/15/2023 Night Triage Doc Medical Records [address] [place] [address] Abstract, Provider Social History Tobacco Use Types [...] on filedocumented in this encounter Care Teams Field Nurse Relationship Specialty Start Date End Date Farrah Felder MD PCP - General Internal Medicine 12/03/21 Angelina Holman PA-C [address] [phone] Thoracic Surgery 09/04/23 documented as of this encounter
--- OUTSIDE RECORDS SUMMARY | 2024-10-30 12:12 | XMS_ITS | Encounter Summary ---
Author Organization [facility] Address [address] [facility] [place] [address] Care Team Providers Care Button Riveter Name Role Phone Farrah Felder MD Primary Care Provider [phone] Angelina Holman PA-C Unavailable [phone] Encounter Details Date Type Department Care Team Description 09/20/2023 On Site Soil Evaluator Report Medical Records [address] [place] [address] Jose Carlos Ponce MD Social History Tobacco [...] on filedocumented in this encounter Care Teams Button Riveter Relationship Specialty Start Date End Date Farrah Felder MD PCP - General Internal Medicine 12/03/21 Angelina Holman PA-C [address] [place] [phone] Thoracic Surgery 09/04/23 documented as of this encounter
--- OUTSIDE RECORDS SUMMARY | 2024-10-30 12:12 | XMS_ITS | Encounter Summary ---
Author Organization [facility] Address [address] [place] [address] Care Team Providers Care Investment Sales Assistant Name Role Phone Shama Shafer MD Primary Care Provider [phone] Farrah Felder MD Primary Care Provider [phone] Angelina Holman PA-C Unavailable [phone] Reason for Visit * Reason Onset Date Comments refill request 03/27/2017 Encounter Details Date Type Department Care Team Description 03/27/2017 Refill OBGYN - [address] [address] Polo La MD refill request Social History [...] EDT WHEN WAS THE PATIENTS LAST ANNUAL STREET PHOTOGRAPHER EXAM? 03-18-16 Does patient have an upcoming [...] FEP STANDARD $25 / Product Type: PPO [id number] documented in this encounter Plan of Treatment Not on file documented as of this encounter Visit Diagnoses Not on filedocumented in this encounter Care Teams Investment Sales Assistant Relationship Specialty Start Date End Date Shama Shafer MD [address] [place] [address] PCP - General Internal Medicine 04/29/11 12/02/21 Farrah Felder MD [address] [place] [address] PCP - General Internal Medicine 12/03/21 Angelina Holman PA-C [address] [place] [phone] Thoracic Surgery 09/04/23 documented as of this encounter
--- OUTSIDE RECORDS SUMMARY | 2024-10-30 12:12 | XMS_ITS | Encounter Summary ---
Author Organization [facility] Address [address] [place] [address] Care Team Providers Care Painter Mirror Name Role Phone Jailene Tapia MD Primary Care Provider Shama Shafer MD Primary Care Provider [phone] Farrah Felder MD Primary Care Provider Angelina Holman PA-C Unavailable [phone] Encounter Details Date Type Department Care Team Description 12/17/2008 Hospital Medical Records [address] [place] [address] Madi Haines MD [address] [place] [address] Social History Tobacco Use Types Packs/Day [...] on filedocumented in this encounter Care Teams Painter Mirror Relationship Specialty Start Date End Date Jailene Tapia MD [address] [place] [address] PCP - General 07/21/08 04/28/11 Shama Shafer MD [address] [place] [address] PCP - General Internal Medicine 04/29/11 12/02/21 Farrah Felder MD [address] [place] [address] PCP - General Internal Medicine 12/03/21 Angelina Holman PA-C [address] [place] [phone] Thoracic Surgery 09/04/23 documented as of this encounter
--- OUTSIDE RECORDS SUMMARY | 2024-10-30 12:12 | XMS_ITS | Encounter Summary ---
Author Organization [facility] Address [address] [place] [address] Care Team Providers Care Inspector Timers Name Role Phone Farrah Felder MD Primary Care Provider [phone] Angelina Holman PA-C Unavailable [phone] Encounter Details Date Type Department Care Team Description 08/07/2023 Pt. Non Urgent Medical Question Internal Medicine - [place] [address] [facility], [address] [place] [address] Farrah Felder MD [address] [place] [phone] Social History Tobacco Use Types Packs/Day [...] on filedocumented in this encounter Care Teams Inspector Timers Relationship Specialty Start Date End Date Farrah Felder MD PCP - General Internal Medicine 12/03/21 Angelina Holman PA-C [address] [place] [phone] Thoracic Surgery 09/04/23 documented as of this encounter
--- OUTSIDE RECORDS SUMMARY | 2024-10-30 12:12 | XMS_ITS | Encounter Summary ---
Author Organization [facility] Address [address] [facility] [place] [address] Care Team Providers Care Brush Polisher Name Role Phone Farrah Felder MD Primary Care Provider [phone] Angelina Holman PA-C Unavailable [phone] Encounter Details Date Type Department Care Team Description 07/19/2023 Orders Only Medical Records [address] [facility] [place] [address] Fabián Suárez MD Social History Tobacco Use [...] Date/Time Associated Diagnosis Comments OUTSIDE LAB Routine 07/18/2023 OUTSIDE LAB Routine 07/11/2023 documented in this encounter Results * OUTSIDE LAB (07/18/2023) Fabián Suárez MD LAB * OUTSIDE LAB (07/11/2023) [facility] documented in this encounter Visit Diagnoses Not on filedocumented in this encounter Care Teams Brush Polisher Relationship Specialty Start Date End Date Farrah Felder MD PCP - General Internal Medicine 12/03/21 Angelina Holman PA-C [address] [place] [phone] Thoracic Surgery 09/04/23 documented as of this encounter
--- OUTSIDE RECORDS SUMMARY | 2024-10-30 12:12 | XMS_ITS | Encounter Summary ---
Author Organization [facility] [place] [address] Care Team Providers Care Computational Scientist Name Role Phone Farrah Felder MD Primary Care Provider [phone] Encounter Details Date Type Department Care Team [...] care for your loved ones. For example, infant childcare provider or elderly care for an [...] Info) Description 11/04/2024 10:00 AM EDT Appointment [facility] Infusion Center [address] [facility] 2nd [place] [address] 12/11/2024 10:30 AM EDT Office Visit [facility] Hematology Oncology [address] [place] [address] Fabián Suárez MD [address] [place] [phone] 03/06/2025 11:30 AM EDT [facility] [address] [place] [address] Leisa Infante MD 175 [facility] [address] [place] [address] documented as of this encounter Visit Diagnoses Not on filedocumented in this encounter Care Teams Computational Scientist Relationship Specialty Start Date End Date Farrah Felder MD PCP - General Internal Medicine 12/03/21 05/12/24 documented as of this encounter
--- OUTSIDE RECORDS SUMMARY | 2024-10-30 12:12 | XMS_ITS | Encounter Summary ---
Author Organization [facility] Address [address] [place] [address] Care Team Providers Care Athletic Instructor Name Role Phone Farrah Felder MD Primary Care Provider [phone] Angelina Holman PA-C Unavailable [phone] Encounter Details Date Type Department Care Team Description 09/05/2023 Orders Only Pulmonology - [place] [address] [address] Leisa Infante MD [address] [phone] Social History Tobacco Use Types [...] on filedocumented in this encounter Care Teams Athletic Instructor Relationship Specialty Start Date End Date Farrah Felder MD PCP - General Internal Medicine 12/03/21 Angelina Holman PA-C [address] [place] [phone] Thoracic Surgery 09/04/23 documented as of this encounter
--- OUTSIDE RECORDS SUMMARY | 2024-10-30 12:12 | XMS_ITS | Encounter Summary ---
Author Organization [facility] Address [address] [place] [address] Care Team Providers Care Bread Oven Operator Name Role Phone Shama Shafer MD Primary Care Provider [phone] Farrah Felder MD Primary Care Provider Angelina Holman PA-C Unavailable [phone] Encounter Details Date Type Department Care Team Description 01/01/2018 Telephone Pulmonology - [place] 175 [facility] [address] [place] [address] Benjamín Doan MD 175 [facility] [address] [place] [address] Social History Tobacco Use Types [...] on filedocumented in this encounter Care Teams Bread Oven Operator Relationship Specialty Start Date End Date Shama Shafer MD [address] [place] [address] PCP - General Internal Medicine 04/29/11 12/02/21 Farrah Felder MD [address] [place] [address] PCP - General Internal Medicine 12/03/21 Angelina Holman PA-C [address] [place] [phone] Thoracic Surgery 09/04/23 documented as of this encounter
--- OUTSIDE RECORDS SUMMARY | 2024-10-30 12:12 | XMS_ITS | Encounter Summary ---
Author Organization [facility] Address [address] [facility] [place] [address] Care Team Providers Care Upholstery Department Supervisor Name Role Phone Farrah Felder MD Primary Care Provider [phone] Angelina Holman PA-C Unavailable [phone] Encounter Details Date Type Department Care Team Description 05/04/2023 Orders Only Medical Records 4 [place] [address] Fabián Suárez MD Social History Tobacco Use [...] on filedocumented in this encounter Care Teams Upholstery Department Supervisor Relationship Specialty Start Date End Date Farrah Felder MD PCP - General Internal Medicine 12/03/21 Angelina Holman PA-C [address] [place] [phone] Thoracic Surgery 09/04/23 documented as of this encounter
--- OUTSIDE RECORDS SUMMARY | 2024-10-30 12:12 | XMS_ITS | Encounter Summary ---
Author Organization [facility] Address [address] [place] [address] Care Team Providers Care Main Entree Cook And Cashier Name Role Phone Shama Shafer MD Primary Care Provider [phone] Farrah Felder MD Primary Care Provider [phone] Angelina Holman PA-C Unavailable [phone] Reason for Visit * Reason Onset Date Comments hospital follow up 12/07/2017 Encounter Details Date Type Department Care Team Description 12/07/2017 Telephone Adult Medicine [address] [phone] Shama Shafer MD [address] [place] [phone] hospital follow up Social History Tobacco Use [...] is returning phone call, asked to call [phone] * Telephone Encounter - Dayday Hayes R.N - 12/14/2017 4:44 PM EDT [phone] (home) Pt called left voice message to [...] at 10:[address]- Ngo at [facility] notified at [phone]. Left reminder message on pts ans. Machine. * Telephone Encounter - Shivani Parks - 12/07/2017 8:50 AM EDT Hospital follow up appointment needed Hospital patient was treated at: [facility] Was this only an ER visit or was the patient admitted to the hospital? Admitted to hospital Date of visit if ER visit only: [id number] If patient was admitted what was the date of discharge? [id number] Reason/diagnosis for visit or stay: COPD When [...] on filedocumented in this encounter Care Teams Main Entree Cook And Cashier Relationship Specialty Start Date End Date Shama Shafer MD [address] [place] [address] PCP - General Internal Medicine 04/29/11 12/02/21 Farrah Felder MD [address] [place] [address] PCP - General Internal Medicine 12/03/21 Angelina Holman PA-C [address] [place] [phone] Thoracic Surgery 09/04/23 documented as of this encounter
--- OUTSIDE RECORDS SUMMARY | 2024-10-30 12:12 | XMS_ITS | Encounter Summary ---
Author Organization [facility] [place] [address] Care Team Providers Care Retail Training Manager Name Role Phone Farrah Felder MD Primary Care Provider [phone] Encounter Details Date Type Department Care Team [...] for your loved ones. For example, child caregiver private home or elderly care for an older adult? [...] Info) Description 11/04/2024 10:00 AM EDT Appointment [facility] Infusion Center [address] [facility] 2nd [place] [address] 12/11/2024 10:30 AM EDT Office Visit [facility] Hematology Oncology [address] [place] [address] Fabián Suárez MD [address] [place] [address] 03/06/2025 11:30 AM EDT Office Visit [facility] [address] [phone] Leisa Infante MD [address] [address] documented as of this encounter Procedures Procedure Name Priority Date/Time Associated Diagnosis Comments ..MISCELLANEOUS REFERENCE LAB TEST 04/15/2024 documented in this encounter Results * Miscellaneous reference lab test (04/15/2024) us Provider Onbase MD LAB BLOOD ORDERABLES Final Re sult documented in this encounter Visit Diagnoses Diagnosis Immune thrombocytopenic purpura (CMS/[facility] V24, CMS/[facility] V28) Immune thrombocytopenic purpura documented in this encounter Care Teams Retail Training Manager Relationship Specialty Start Date End Date Farrah Felder MD PCP - General Internal Medicine 12/03/21 05/12/24 documented as of this encounter
--- OUTSIDE RECORDS SUMMARY | 2024-10-30 12:12 | XMS_ITS | Encounter Summary ---
Author Organization [facility] Address [address] [facility] [place] [address] Care Team Providers Care Parquet Floor Layer'S Helper Name Role Phone Shama Shafer MD Primary Care Provider [phone] Farrah Felder MD Primary Care Provider [phone] Angelina Holman PA-C Unavailable [phone] Encounter Details Date Type Department Care Team Description 10/02/2015 Night Triage Doc Medical Records [address] [place] [address] Abstract, Provider Social History Tobacco Use Types [...] on filedocumented in this encounter Care Teams Parquet Floor Layer'S Helper Relationship Specialty Start Date End Date Shama Shafer MD [address] [place] [address] PCP - General Internal Medicine 04/29/11 12/02/21 Farrah Felder MD [address] [place] [address] PCP - General Internal Medicine 12/03/21 Angelina Holman PA-C [address] [place] [phone] Thoracic Surgery 09/04/23 documented as of this encounter
--- OUTSIDE RECORDS SUMMARY | 2024-10-30 12:12 | XMS_ITS | Encounter Summary ---
Author Organization [facility] Address [address] [facility] [place] [address] Care Team Providers Care Hanger Off Name Role Phone Farrah Felder MD Primary Care Provider [phone] Angelina Holman PA-C Unavailable [phone] Encounter Details Date Type Department Care Team Description 03/02/2023 Orders Only Medical Records 4 [place] [address] Abstract, Provider Social History Tobacco Use Types [...] Name Priority Date/Time Associated Diagnosis Comments OUTSIDE SLEEP STUDY Routine 01/31/2023 documented in this encounter Results * OUTSIDE SLEEP STUDY (01/31/2023) Provider Abstract PULMONOLOGY documented in this encounter Visit Diagnoses Not on filedocumented in this encounter Care Teams Hanger Off Relationship Specialty Start Date End Date Farrah Felder MD PCP - General Internal Medicine 12/03/21 Angelina Holman PA-C [address] [place] [phone] Thoracic Surgery 09/04/23 documented as of this encounter
--- OUTSIDE RECORDS SUMMARY | 2024-10-30 12:12 | XMS_ITS | Encounter Summary ---
Author Organization [facility] Address [address] [facility] [place] [address] Care Team Providers Care Sleeping Car Conductor Name Role Phone Farrah Felder MD Primary Care Provider [phone] Angelina Holman PA-C Unavailable Encounter Details Date Type Department Care Team Description 09/13/2023 Orders Only Medical Records 4 [place] [address] Fabián Suárez MD Social History Tobacco Use [...] on filedocumented in this encounter Care Teams Sleeping Car Conductor Relationship Specialty Start Date End Date Farrah Felder MD PCP - General Internal Medicine 12/03/21 Angelina Holman PA-C [address] [phone] Thoracic Surgery 09/04/23 documented as of this encounter
--- OUTSIDE RECORDS SUMMARY | 2024-10-30 12:12 | XMS_ITS | Encounter Summary ---
Author Organization [facility] Address [address] [place] [address] Care Team Providers Care Fiscal Manager Name Role Phone Farrah Felder MD Primary Care Provider [phone] Angelina Holman PA-C Unavailable [phone] Encounter Details Date Type Department Care Team Description 11/20/2023 Pt. Non Urgent Medical Question Internal Medicine - [address], [address] [place], [place] [phone] Farrah Felder MD [address] [place] [phone] Social History Tobacco Use Types Packs/Day [...] on filedocumented in this encounter Care Teams Fiscal Manager Relationship Specialty Start Date End Date Farrah Felder MD PCP - General Internal Medicine 12/03/21 Aneglina Holman PA-C [address] [place] [phone] Thoracic Surgery 09/04/23 documented as of this encounter
--- OUTSIDE RECORDS SUMMARY | 2024-10-30 12:12 | XMS_ITS | Encounter Summary ---
Author Organization [facility] Address [address] [place] [address] Care Team Providers Care Sheet Music Salesperson Name Role Phone Farrah Felder MD Primary Care Provider [phone] Angelina Holman PA-C Unavailable [phone] Encounter Details Date Type Department Care Team Description 02/03/2023 Pt. Non Urgent Medical Question Pulmonology - [place] [address] [address] Leisa Infante MD [address] [place] [phone] Social History Tobacco Use Types Packs/Day [...] on filedocumented in this encounter Care Teams Sheet Music Salesperson Relationship Specialty Start Date End Date Farrah Felder MD PCP - General Internal Medicine 12/03/21 Angelina Holman PA-C [address] [phone] Thoracic Surgery 09/04/23 documented as of this encounter
--- OUTSIDE RECORDS SUMMARY | 2024-10-30 12:12 | XMS_ITS | Encounter Summary ---
Author Organization [facility] Address [address] [facility] [place] [address] Care Team Providers Care Counterintelligence/Humint Specialist Name Role Phone Shama Shafer MD Primary Care Provider [phone] Farrah Felder MD Primary Care Provider [phone] Angelina Holman PA-C Unavailable [phone] Encounter Details Date Type Department Care Team Description 12/06/2017 Hospital Medical Records [address] [place] [address] Jennifer Dumont MD Social History Tobacco Use Types Packs/Day [...] on filedocumented in this encounter Care Teams Counterintelligence/Humint Specialist Relationship Specialty Start Date End Date Shama Shafer MD 444 [place] [address] PCP - General Internal Medicine 04/29/11 12/02/21 Farrah Felder MD [address] [place] [address] PCP - General Internal Medicine 12/03/21 Angelina Holman PA-C [address] [place] [phone] Thoracic Surgery 09/04/23 documented as of this encounter
--- OUTSIDE RECORDS SUMMARY | 2024-10-30 12:12 | XMS_ITS | Encounter Summary ---
Author Organization [facility] Address [address] [place] [address] Care Team Providers Care Maths Tutor Name Role Phone Farrah Felder MD Primary Care Provider [phone] Angelina Holman PA-C Unavailable [phone] Encounter Details Date Type Department Care Team Description 10/17/2023 Pt. Non Urgent Medical Question Internal Medicine - [address], [address] [place], [place] [phone] Farrah Felder MD [address] [place] [address] Social History Tobacco Use Types Packs/Day [...] on filedocumented in this encounter Care Teams Maths Tutor Relationship Specialty Start Date End Date Farrah Felder MD PCP - General Internal Medicine 12/03/21 Angelina Holman PA-C [address] [place] [phone] Thoracic Surgery 09/04/23 documented as of this encounter
--- OUTSIDE RECORDS SUMMARY | 2024-10-30 12:12 | XMS_ITS | Encounter Summary ---
Author Organization [facility] Address [address] [place] [address] Care Team Providers Care Wad Blanking Press Adjuster Name Role Phone Shama Shafer MD Primary Care Provider [phone] Farrah Felder MD Primary Care Provider +[phone] Angelina Holman PA-C Unavailable [phone] Reason for Visit * Reason Onset Date Comments REFERRAL 11/28/2017 Encounter Details Date Type Department Care Team Description 11/28/2017 Telephone Allergy - [address] [address] Beatriz Garcia MD REFERRAL Social [...] on filedocumented in this encounter Care Teams Wad Blanking Press Adjuster Relationship Specialty Start Date End Date Shama Shafer MD [address] [place] [address] PCP - General Internal Medicine 04/29/11 12/02/21 Farrah Felder MD [address] [place] [address] PCP - General Internal Medicine 12/03/21 Angelina Holman PA-C [address] [place] [phone] Thoracic Surgery 09/04/23 documented as of this encounter
--- OUTSIDE RECORDS SUMMARY | 2024-10-30 12:12 | XMS_ITS | Encounter Summary ---
Author Organization [facility] Address [address] [facility] [place] [address] Care Team Providers Care Coding Support Specialist Name Role Phone Shama Shafer MD Primary Care Provider [phone] Farrah Felder MD Primary Care Provider [phone] Angelina Holman PA-C Unavailable [phone] Encounter Details Date Type Department Care Team Description 09/26/2017 Bit Welder Report Medical Records [address] [place] [address] Ludin Ferrari MD Social History Tobacco Use Types Packs/Day [...] on filedocumented in this encounter Care Teams Coding Support Specialist Relationship Specialty Start Date End Date Shama Shafer MD [address] [place] [address] PCP - General Internal Medicine 04/29/11 12/02/21 Farrah Felder MD [address] [place] [address] PCP - General Internal Medicine 12/03/21 Angelina Holman PA-C [address] [place] [phone] Thoracic Surgery 09/04/23 documented as of this encounter
--- OUTSIDE RECORDS SUMMARY | 2024-10-30 12:12 | XMS_ITS | Encounter Summary ---
Author Organization [facility] Address [address] [facility] [place] [address] Care Team Providers Care Bark Scaler Name Role Phone Farrah Felder MD Primary Care Provider [phone] Angelina Holman PA-C Unavailable [phone] Reason for Visit * Reason Onset Date Comments Director Of Student Financial Aid Feedback 02/21/2023 Encounter Details Date Type Department Care Team Description 02/21/2023 Telephone Pulmonology - [place] [address] [address] Leisa Infante MD [address] [phone] Director Of Student Financial Aid Feedback Social History Tobacco Use Types Packs/Day [...] on filedocumented in this encounter Care Teams Bark Scaler Relationship Specialty Start Date End Date Farrah Felder MD PCP - General Internal Medicine 12/03/21 Angelina Holman PA-C [address] [place] [phone] Thoracic Surgery 09/04/23 documented as of this encounter
--- OUTSIDE RECORDS SUMMARY | 2024-10-30 12:12 | XMS_ITS | Encounter Summary ---
Author Organization [facility] Address [address] [place] [address] Care Team Providers Care Manager Voice Name Role Phone Farrah Felder MD Primary Care Provider Encounter Details Date Type Department Care Team ([facility] Contact Info) Description 07/01/2024 Lab Requisition [facility] - Main Lab [address] [place] [address] Jose Carlos Ponce MD [address] [place] [phone] Rheumatoid arthritis, unspecified (CMS/HCC V24, CMS/HCC V28); Other residential (current) drug therapy Social History Tobacco Use [...] Description 11/04/2024 10:00 AM EDT Appointment [facility] [address] [facility] 2nd [place] [phone] 12/11/2024 10:30 AM EDT Office Visit [facility] Hematology Oncology [address] [place] [phone] Fabián Suárez MD [address] [place] [phone] 03/06/2025 11:30 AM EDT Office Visit Pulmonolgy - [place] [address] [phone] Leisa Infante MD [address] [address] documented as of this encounter Procedures Procedure Name Priority Date/Time Associated Diagnosis Comments CREATININE, SERUM Routine 07/01/2024 9:5 2 AM EST Rheumatoid arthritis, unspecified (CMS/HCC) Other 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 (current) drug therapy SEDIMENTATION RATE Routine 07/01/2024 9: 52 AM EST Rheumatoid arthritis, unspecified (CMS/HCC) Other residential (current) drug therapy C-REACTIVE PROTEIN Routine 07/01/2024 9: 52 AM EST Rheumatoid arthritis, unspecified (CMS/HCC) Other 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 (current) drug therapy ALANINE AMINOTRANSFERASE Routine 9:52 AM EST Rheumatoid arthritis, unspecified (CMS/HCC) Other 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 (current) drug therapy ASPARTATE AMINOTRANSFERASE Routine 07/01/2024 9:52 AM EST Rheumatoid arthritis, unspecified (CMS/HCC) Other 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 (current) drug therapy documented in this encounter Results * Creatinine (07/01/2024 9:52 AM EST) Creatinine 0.72 0.50 - 1.10 mg/dL LAB CHEMISTRY METHOD 07/01/2024 11:23 AM EST [facility] eGFR 92 >=60 mL/min/1. 73m2 LAB CHEMISTRY METHOD 07/01/2024 11:23 AM EST [facility] Comment:Calculation based on the??Chronic Kidney Disease Epidemiology Collaboration (CKD-EPI) equation refit??without adjustment for race. Blood Venous blood specimen / Unknown 07/01/2024 9:52 AM EST 07/01/2024 10:30 AM EST Jose Carlos Ponce MD LAB BLOOD ORDERABLES Padmini l Result Performing Organization Address City/[facility]/ZIP Co de Phone Number [facility] [address] [place] [address], [place] [phone] * Alanine aminotransferase (07/01/2024 9:52 AM EST) ALT (SGPT) 20 10 - 60 unit/L LAB CHEMISTRY METHOD 07/01/2024 11:23 AM EST [facility] Blood Venous blood specimen / Unknown 07/01/2024 9:52 AM EST 07/01/2024 10:30 AM EST Jose Carlos Ponce MD LAB BLOOD ORDERABLES Padmini l Result [facility] [address] [place] [address], [place] [phone] * Aspartate aminotransferase (07/01/2024 9:52 AM EST) AST (SGOT) 10 10 - 42 unit/L LAB CHEMISTRY METHOD 07/01/2024 11:23 AM EST [facility] Blood Venous blood specimen / Unknown 07/01/2024 9:52 AM EST 07/01/2024 10:30 AM EST us Jose Carlos Ponce MD LAB BLOOD ORDERABLES Padmini l Result Performing Organization Address [facility] Co de Phone Number [facility] [address] [place] [address], [place] [phone] * (ABNORMAL) Sedimentation rate (07/01/2024 9:52 AM EST) Sed Rate 70(H) 0 - 30 mm/hr LAB HEMETOLOGY METHOD 07/01/2024 11:03 AM EST [facility] Blood Venous blood specimen / Unknown 07/01/2024 9:52 AM EST 07/01/2024 10:30 AM EST Jose aCrlos Ponce MD LAB BLOOD ORDERABLES Padmini l Result Performing Organization Address [facility] de Phone Number [facility] [address] [place] [address], [place] [phone] * (ABNORMAL) C-reactive protein (07/01/2024 9:52 AM EST) C-Reactive Protein 0.98(H) <=0.50 mg/dL LAB CHEMISTRY METHOD 07/01/2024 11:23 AM EST [facility] Blood Venous blood specimen / Unknown 07/01/2024 9:52 AM EST 07/01/2024 10:30 AM EST Jose Carlos Ponce MD LAB BLOOD ORDERABLES Padmini l Result Performing Organization Address [facility] Co de Phone Number [facility] [address] [place] [address], [place] [phone] documented in this encounter Visit Diagnoses Diagnosis Rheumatoid arthritis, unspecified (CMS/HCC V24, CMS/HCC V28) Other residential (current) drug therapy documented in this encounter Care Teams Manager Voice Relationship Specialty Start Date End Date Farrah Felder MD [address] [place] [phone] PCP - General Internal Medicine 05/13/24 documented as of this encounter
--- OUTSIDE RECORDS SUMMARY | 2024-10-30 12:13 | XMS_ITS | Encounter Summary ---
Author Organization [facility] Address [address] [facility] [place] [address] Care Team Providers Care Ware Server Name Role Phone Shama Shafer MD Primary Care Provider [phone] Farrah Felder MD Primary Care Provider [phone] Angelina Holman PA-C Unavailable [phone] Encounter Details Date Type Department Care Team Description 02/11/2019 Hot Dimpling Machine Operator Report Medical Records [address] [place] [address] [facility] Social History Tobacco Use Types Packs/Day [...] on filedocumented in this encounter Care Teams Ware Server Relationship Specialty Start Date End Date Shama Shafer MD [address] [place] [phone] PCP - General Internal Medicine 04/29/11 12/02/21 Farrah Felder MD [address] [place] [address] PCP - General Internal Medicine 12/03/21 Angelina Holman PA-C [address] [place] [phone] Thoracic Surgery 09/04/23 documented as of this encounter
--- OUTSIDE RECORDS SUMMARY | 2024-10-30 12:13 | XMS_ITS | Encounter Summary ---
Author Organization [facility] Address [address] [place] [address] Care Team Providers Care Assembler Equipment Name Role Phone Shama Shafer MD Primary Care Provider [phone] Farrah Felder MD Primary Care Provider [phone] Angelina Holman PA-C Unavailable [phone] Encounter Details Date Type Department Care Team Description 12/02/2021 Pt. Non Urgent Medical Question Internal Medicine - [address], [address] [place], [place] [phone] Farrah Felder MD [address] [place] [phone] Social History Tobacco Use Types Packs/Day [...] on filedocumented in this encounter Care Teams Assembler Equipment Relationship Specialty Start Date End Date Shama Shafer MD [address] [place] [phone] PCP - General Internal Medicine 04/29/11 12/02/21 Farrah Felder MD [address] [place] [address] PCP - General Internal Medicine 12/03/21 Angelina Holman PA-C [address] [phone] Thoracic Surgery 09/04/23 documented as of this encounter
--- OUTSIDE RECORDS SUMMARY | 2024-10-30 12:13 | XMS_ITS | Encounter Summary ---
Author Organization [facility] Address [address] [place] [address] Care Team Providers Care Lead Teacher Name Role Phone Farrah Felder MD Primary Care Provider [phone] Angelina Holman PA-C Unavailable [phone] Encounter Details Date Type Department Care Team Description 01/29/2024 Pt. Non Urgent Medical Question Internal Medicine - [address], [address] [place], [place] [phone] Farrah Felder MD [address] [place] [phone] Social History Tobacco Use Types Packs/Day [...] filedocumented in this encounter Care Teams Lead Teacher Relationship Specialty Start Date End Date Farrah Felder MD PCP - General Internal Medicine 12/03/21 Angelina Holman PA-C [address] [place] [phone] Thoracic Surgery 09/04/23 documented as of this encounter
--- OUTSIDE RECORDS SUMMARY | 2024-10-30 12:13 | XMS_ITS | Clinical Summary ---
Author Organization [facility] Address [address] [place] [address] Care Team Providers Care E D Tech Name Role Phone Farrah Felder MD Primary Care Provider [phone] Allergies Active Allergy Reactions Criticality Noted Date [...] (Breyna) 160-4.5 mcg/actuation inhalerIndicat ions:COPD with asthma (CMS/[facility] V24, CMS/[facility] V28) Inhale 2 puffs by mouth 2 (two) times a day. Rinse mouth with water after use to reduce aftertaste and incidence of candidiasis. Do not swallow. 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 ([facility] V24, [facility] V28) 05/29/2023 Arthritis 05/01/2023 Acute ITP ([facility] V24, [facility] V28) 02/02/2023 Encounters Date Type Department Care Team Description 10/28/2024 9:30 AM EDT Hospital Encounter [facility] [address] [place] [phone] Fabián Suárez MD Acute ITP ([facility] V24, [facility] V28) (Primary Dx) 10/21/2024 9:14 AM EDT - 10/21/2024 11:59 PM EDT Hospital Encounter [address] [phone] Fabián Suárez MD Acute ITP ([facility] V24, [facility] V28) (Primary Dx) Discharge Disposition: Home or Self Care 10/14/2024 9:15 AM EDT - 10/14/2024 11:59 PM EDT Hospital Encounter [facility] [address] [place] [phone] Fabián Suárez MD Acute ITP ([facility] V24, [facility] V28) (Primary Dx) Discharge Disposition: Home or Self Care 10/07/2024 9:16 AM EDT - 10/07/2024 11:59 PM EDT Hospital Encounter [facility] [address] [place] [phone] Fabián Suárez MD Acute ITP ([facility]/HCC V24, [facility]/HCC V28) (Primary Dx) Discharge Disposition: Home or Self Care 10/01/2024 Telephone [facility] [address] [place] [phone] Fabián Suárez MD 09/30/2024 9:18 AM EDT - 09/30/2024 11:59 PM EDT Hospital Encounter [facility] [address] [place] [phone] Fabián Suárez MD Acute ITP ([facility] V24, [facility] V28) (Primary Dx) Discharge Disposition: Home or Self Care 09/27/2024 Telephone [facility] [address] [place] [phone] Fabián Suárez MD 09/23/2024 9:13 AM EDT - 09/23/2024 11:59 PM EDT Hospital Encounter [facility] [address] [place] [phone] Fabián Suárez MD Acute ITP ([facility] V24, [facility]/HCC V28) (Primary Dx) Discharge Disposition: Home or Self Care 09/18/2024 10:45 AM EDT - 09/18/2024 11:59 PM EDT Hospital En[facility] [address] [place] [phone] Encounter for screening for malignant neoplasm of respiratory organs; Personal history of nicotine dependence Discharge Disposition: Home or Self Care 09/16/2024 9:25 AM EDT - 09/16/2024 11:59 PM EDT Hospital Encounter [facility] [address] [place] [phone] Fabián Suárez MD Acute ITP ([facility] V24, [facility] V28) (Primary Dx) Discharge Disposition: Home or Self Care 09/09/2024 9:30 AM EST - 09/09/2024 11:59 PM EST Hospital Encounter [facility] [address] [place] [phone] Fabián Suárez MD Acute ITP ([facility] V24, [facility] V28) (Primary Dx) Discharge Disposition: Home or Self Care 09/09/2024 9:15 AM EST Office Visit [facility] [address] [place] [phone] Fabián Suárez MD Acute ITP ([facility] V24, [facility] V28) (Primary Dx); Class 3 severe obesity due to excess calories with serious comorbidity and body mass index (BMI) of 50.0 to 59.9 in adult ([facility] V24, [facility] V28); Dehydration; Steroid-induced hyperglycemia 09/06/2024 10:30 AM EST Office Visit Pulmonolgy - [place] 175 [facility] [address] [place] [phone] Leisa Infante MD COPD with asthma ([facility] V24, [facility] V28) (Primary Dx); SHAWN (obstructive sleep apnea); Lung nodules; Ex-smoker 09/02/2024 9:27 AM EST - 09/02/2024 11:59 PM EST Hospital Encounter [facility] [address] [place] [phone] Fabián Suárez MD Acute ITP ([facility] V24, [facility] V28) (Primary Dx) Discharge Disposition: Home or Self Care 08/20/2024 Telephone Lung Screening Program - [place] 299 [facility] [address] [place] [phone] Pati Germain [place] Appointment (1st Notification) 08/19/2024 9:27 AM EST - 08/19/2024 11:59 PM EST Hospital Encounter [facility] [address] [place] [phone] Fabián Suárez MD Acute ITP ([facility] V24, [facility] V28) (Primary Dx) Discharge Disposition: Home or Self Care 08/19/[address] 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 and immunosuppressants 08/12/2024 9:24 AM EST - 08/12/2024 11:59 PM EST Hospital Encounter [facility] [address] [phone] Acute ITP ([facility] V24, [facility] V28) (Primary Dx) Discharge Disposition: Home or Self Care 08/05/2024 9:25 AM EST - 08/05/2024 11:59 PM EST Hospital Encounter [facility] [address] [place] [phone] Fabián Suárez MD Acute ITP ([facility] V24, [facility] V28) (Primary Dx) Discharge Disposition: Home or [...] memo COPD (chronic obstructive pu lmonary disease) ([facility] V24, [facility] V28) 11/13/2017 DX:COPD (chronic o bstructive pulmonary disease) ([facility]) Family History Medical History Relation Name Comments [...] your loved ones. For example, early childhood special educator or elderly care for an older adult? [...] Info) Description 11/04/2024 10:00 AM EDT Appointment [facility] [address] [phone] 12/11/2024 10:30 AM EDT Office Visit [facility] [address] [place] [phone] Michelle-Fabián Bobby MD [address] [place] [phone] 03/06/2025 11:30 AM EDT Office Visit Pulmonolgy - [place] 175 [facility] [address] [place] [phone] Leisa Infante MD 175 [facility] [address] [place] [address] Health Maintenance Due Date Last Done Comments [...] ASPARTATE AMINOTRANSFERASE Routine 08/19/2024 9:50 AM EST USP (current) use of unspecified immunomodulators and immunosuppressants ALANINE AMINOTRANSFERASE Routine 08/19/2024 9:50 AM EST USP (current) use of unspecified immunomodulators and immunosuppressants [...] K/mcL LAB HEMETOLOGY METHOD 10/28/2024 11:09 AM [facility] RBC 4.30 3.80 - 4.80 M/mcL LAB HEMETOLOGY METHOD 10/28/2024 11:09 AM [facility] Hemoglobin 13.4 11.5 - 16.0 g/dL LAB HEMETOLOGY METHOD 10/28/2024 11:09 AM [facility] Hematocrit 40.5 35.0 - 47.0 % LAB HEMETOLOGY METHOD 10/28/2024 11:09 AM [facility] MCV 94.2 79.0 - 98.0 FL LAB HEMETOLOGY METHOD 10/28/2024 11:09 AM [facility] MCH 31.2 27.0 - 32.0 pcg LAB HEMETOLOGY METHOD 10/28/2024 11:09 AM [facility] MCHC 33.1 32.0 - 37.0 g/dL LAB HEMETOLOGY METHOD 10/28/2024 11:09 AM [facility] RDW 13.8 11.0 - 15.0 % LAB HEMETOLOGY METHOD 10/28/2024 11:09 AM [facility] Platelets 158 130 - 400 K/mcL LAB HEMETOLOGY METHOD 10/28/2024 11:09 AM [facility] MPV 11.7(H) 7.0 - 11.0 FL LAB HEMETOLOGY METHOD 10/28/2024 11:09 AM [facility] NRBC 0.0 <1.0 % LAB HEMETOLOGY METHOD 10/28/2024 11:09 AM [facility] NRBC Absolute 0.00 <0.10 K/mcL LAB HEMETOLOGY METHOD 10/28/2024 11:09 AM [facility] Neutrophils Relative 58.6 % LAB HEMETOLOGY METHOD 10/28/2024 11:09 AM [facility] Lymphocytes Relative 29.2 % LAB HEMETOLOGY METHOD 10/28/2024 11:09 AM [facility] Monocytes Relative 8.7 % LAB HEMETOLOGY METHOD 10/28/2024 11:09 AM [facility] Eosinophils Relative 2.4 % LAB HEMETOLOGY METHOD 10/28/2024 11:09 AM [facility] Basophils Relative 0.7 % LAB HEMETOLOGY METHOD 10/28/2024 11:09 AM [facility] Immature Granulocytes Relative 0.4 % LAB HEMETOLOGY METHOD 10/28/2024 11:09 AM [facility] Neutrophils Absolute 6.23 1.50 - 7.00 K/mcL LAB HEMETOLOGY METHOD 10/28/2024 11:09 AM [facility] Lymphocytes Absolute 3.09 1.00 - 5.00 K/mcL LAB HEMETOLOGY METHOD 10/28/2024 11:09 AM [facility] Monocytes Absolute 0.92 0.20 - 1.00 K/[facility] LAB HEMETOLOGY METHOD 10/28/2024 11:09 AM EDT [facility] Eosinophils Absolute 0.25 0.00 - 0.50 K/[facility] LAB HEMETOLOGY METHOD 10/28/2024 11:09 AM EDT [facility] Basophils Absolute 0.07 0.00 - 0.20 K/[facility] LAB HEMETOLOGY METHOD 10/28/2024 11:09 AM EDT [facility] Immature Granulocytes Absolute 0.04(H) 0.00 - 0.03 K/[facility] LAB HEMETOLOGY METHOD 10/28/2024 11:09 AM EDT [facility] Blood Venous blood specimen / Unknown Venipuncture / Unknown 10/28/2024 9:38 AM EDT 10/28/2024 11:02 AM EDT us Fabián Suárez MD LAB BLOOD ORDERABLE S Final Result [facility] [address] [place] [address], [place] [phone] * Lavender tube (10/28/2024 9:38 AM EDT) Extra Tube Hold for add-ons. 10/28/2024 12:01 PM EDT [facility] Comment:Auto resulted. Blood Venous blood specimen / Unknown 10/28/2024 9:38 AM EDT 10/28/2024 10:06 AM EDT Fabián Suárez MD LAB BLOOD ORDERABLE S Final Result [facility] [address] [place] [address], [place] [phone] * CT Lung Screening (09/18/2024 10:55 AM [...] Signed Date: 09/18/2024 13:07 ET Workstation ID: [id number] Transcribed By: Self Edit Transcribed Date: 09/18/2024 [...] Signed Date: 09/18/2024 13:07 ET Workstation ID: [id number] Transcribed By: Self Edit Transcribed Date: 09/18/2024 13:03 ET Rajinder Ozuna MD IM CT PROCEDURES Final Result * (ABNORMAL) Comprehensive metabolic panel (09/02/2024 10:02 AM EST) Sodium 141 133 - 145 mmol/L LAB CHEMISTRY METHOD 09/02/2024 10:46 AM [facility] Potassium 3.7 3.5 - 5.5 mmol/L LAB CHEMISTRY METHOD 09/02/2024 10:46 AM [facility] Chloride 107 96 - 110 mmol/L LAB CHEMISTRY METHOD 09/02/2024 10:46 AM [facility] CO2 24 21 - 32 mmol/L LAB CHEMISTRY METHOD 09/02/2024 10:46 AM [facility] Anion Gap 10 3 - 11 LAB CHEMISTRY METHOD 09/02/2024 10:46 AM [facility] Glucose 121(H) 70 - 100 mg/dL LAB CHEMISTRY METHOD 09/02/2024 10:46 AM [facility] BUN 11 5 - 25 mg/dL LAB CHEMISTRY METHOD 09/02/2024 10:46 AM [facility] Creatinine 0.66 0.50 - 1.10 mg/dL LAB CHEMISTRY METHOD 09/02/2024 10:46 AM [facility] eGFR 97 >=60 mL/min/1. 73m2 LAB CHEMISTRY METHOD 09/02/2024 10:46 AM [facility] Comment:Calculation based on the??Chronic Kidney Disease Epidemiology Collaboration (CKD-EPI) equation refit??without adjustment for race. BUN/Creatinine Ratio 16.7 LAB CHEMISTRY METHOD 09/02/2024 10:46 AM [facility] Calcium 9.5 8.5 - 10.5 mg/dL LAB CHEMISTRY METHOD 09/02/2024 10:46 AM [facility] AST (SGOT) 9(L) 10 - 42 unit/L LAB CHEMISTRY METHOD 09/02/2024 10:46 AM [facility] ALT (SGPT) 19 10 - 60 unit/L LAB CHEMISTRY METHOD 09/02/2024 10:46 AM [facility] Alkaline Phosphatase 63 42 - 121 unit/L LAB CHEMISTRY METHOD 09/02/2024 10:46 AM [facility] Total Protein 7.6 6.0 - 8.0 g/dL LAB CHEMISTRY METHOD 09/02/2024 10:46 AM [facility] Albumin 3.6 3.2 - 5.0 g/dL LAB CHEMISTRY METHOD 09/02/2024 10:46 AM [facility] Total Bilirubin 0.5 0.0 - 1.4 mg/dL LAB CHEMISTRY METHOD 09/02/2024 10:46 AM [facility] Blood Venous blood specimen / Unknown Venipuncture / Unknown 09/02/2024 10:02 AM EST 09/02/2024 10:14 AM EST us Fabián Suárez MD LAB BLOOD ORDERABLE S Final Result [facility] [address] [place] [address], * Alanine aminotransferase (08/19/2024 9:50 AM EST) ALT (SGPT) 19 10 - 60 unit/L LAB CHEMISTRY METHOD 08/19/2024 10:35 AM [facility] Blood Venous blood specimen / Unknown 08/19/2024 9:50 AM EST 08/19/2024 10:07 AM EST Jose Carlos Ponce MD LAB BLOOD ORDERABLES Padmini l Result Performing Organization Address [facility]/ZIP Co de Phone Number [facility] [address] [place] [address], [place] [phone] * (ABNORMAL) Aspartate aminotransferase (08/19/2024 9:50 AM EST) AST (SGOT) 9(L) 10 - 42 unit/L LAB CHEMISTRY METHOD 08/19/2024 10:35 AM EST [facility] Blood Venous blood specimen / Unknown 08/19/2024 9:50 AM EST 08/19/2024 10:07 AM EST Jose Carlos Ponce MD LAB BLOOD ORDERABLES Padmini l Result Performing Organization Address [facility] de Phone Number [facility] [address] [place] [address], [place] [phone] * SCREENING MAMMOGRAPHY BI 2-VIEW BREAST INC [...] Breast cancer risk category Low (<15%) Location: [facility], [address] [place] [address], [phone], [phone] Procedure Note Kassandra Morataya MD - 05/07/2024 [...] Breast cancer risk category Low (<15%) Location: [facility], [address] [place] [address], [address], [phone] Farrah Felder MD IMG XR PROCEDURES Final Result from Last 3 Months or Most Recently Relevant to Health Maintenance Insurance [facility] MEDICARE Care Teams E D Tech Relationship Specialty Start Date End Date Farrah Felder MD [address] [phone] PCP - General Internal Medicine 05/13/24
--- OUTSIDE RECORDS SUMMARY | 2024-10-30 12:13 | XMS_ITS | Encounter Summary ---
Author Organization [facility] Address [address] [place] [address] Care Team Providers Care Carton Counter Feeder Name Role Phone Farrah Felder MD Primary Care Provider [phone] Angelina Holman PA-C Unavailable [phone] Encounter Details Date Type Department Care Team Description 01/08/2024 Pt. Non Urgent Medical Question Internal Medicine - [address], [address] [place], [place] [phone] Farrah Felder MD [address] [place] [phone] Social History Tobacco Use Types Packs/Day [...] on filedocumented in this encounter Care Teams Carton Counter Feeder Relationship Specialty Start Date End Date Farrah Felder MD PCP - General Internal Medicine 12/03/21 Angelina Holman PA-C [address] [place] [phone] Thoracic Surgery 09/04/23 documented as of this encounter
--- OUTSIDE RECORDS SUMMARY | 2024-10-30 12:13 | XMS_ITS | Encounter Summary ---
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
--- OUTSIDE RECORDS SUMMARY | 2024-10-30 12:13 | XMS_ITS | Encounter Summary ---
Author Organization [facility] Address [address] [facility] [place] [address] Care Team Providers Care Pulmonologist Name Role Phone Farrah Felder MD Primary Care Provider [phone] Angelina Holman PA-C Unavailable [phone] Encounter Details Date Type Department Care Team Description 10/12/2023 Orders Only Medical Records [address] [place] [address] Fabián Suárez MD Social History Tobacco Use [...] Date/Time Associated Diagnosis Comments OUTSIDE LAB Routine 10/11/2023 documented in this encounter Results * OUTSIDE LAB (10/11/2023) [facility] documented in this encounter Visit Diagnoses Not on filedocumented in this encounter Care Teams Pulmonologist Relationship Specialty Start Date End Date Farrah Felder MD PCP - General Internal Medicine 12/03/21 Angelina Holman PA-C [address] [phone] Thoracic Surgery 09/04/23 documented as of this encounter
--- OUTSIDE RECORDS SUMMARY | 2024-10-30 12:13 | XMS_ITS | Encounter Summary ---
Author Organization [facility] Address [address] [place] [address] Care Team Providers Care Shell Trim Tool Setter Name Role Phone Farrah Felder MD Primary Care Provider [phone] Angelina Holman PA-C Unavailable [phone] Encounter Details Date Type Department Care Team Description 02/26/2024 Pt. Non Urgent Medical Question Internal Medicine - [address], [address] [place], [place] [phone] Farrah Felder MD [address] [place] [phone] Social History Tobacco Use Types Packs/Day [...] on filedocumented in this encounter Care Teams Shell Trim Tool Setter Relationship Specialty Start Date End Date Farrah Felder MD PCP - General Internal Medicine 12/03/21 Angelina Holman PA-C [address] [place] [phone] Thoracic Surgery 09/04/23 documented as of this encounter
--- OUTSIDE RECORDS SUMMARY | 2024-10-30 12:13 | XMS_ITS | Encounter Summary ---
Author Organization [facility] Address [address] [facility] [place] [address] Care Team Providers Care Underground Foreman Name Role Phone Shama Shafer MD Primary Care Provider [phone] Farrah Felder MD Primary Care Provider [phone] Angelina Holman PA-C Unavailable [phone] Encounter Details Date Type Department Care Team Description 01/25/2018 Release of Information Medical Records [address] [place] [id number] Abstract, Provider Social History Tobacco Use Types [...] on filedocumented in this encounter Care Teams Underground Foreman Relationship Specialty Start Date End Date Shama Shafer MD [address] [place] [address] PCP - General Internal Medicine 04/29/11 12/02/21 Farrah Felder MD [address] [place] [address] [place] [address] PCP - General Internal Medicine 12/03/21 Angelina Holman PA-C [address] [place] [phone] Thoracic Surgery 09/04/23 documented as of this encounter
--- OUTSIDE RECORDS SUMMARY | 2024-10-30 12:13 | XMS_ITS | Encounter Summary ---
Author Organization [facility] Address [address] [place] [address] Care Team Providers Care Tooling Engineering Tech Name Role Phone Farrah Felder MD Primary Care Provider [phone] Angelina Holman PA-C Unavailable [phone] Encounter Details Date Type Department Care Team Description 02/12/2024 Pt. Non Urgent Medical Question Internal Medicine - [address], [address] [place], [place] [phone] Farrah Fedler MD [address] [place] [phone] Social History Tobacco Use Types Packs/Day [...] on filedocumented in this encounter Care Teams Tooling Engineering Tech Relationship Specialty Start Date End Date Farrah Felder MD PCP - General Internal Medicine 12/03/21 Angelina Holman PA-C [address] [place] [phone] Thoracic Surgery 09/04/23 documented as of this encounter
--- OUTSIDE RECORDS SUMMARY | 2024-10-30 12:13 | XMS_ITS | Encounter Summary ---
Author Organization [facility] Address [address] [facility] [place] [address] Care Team Providers Care Mechanism Assembler Name Role Phone Farrah Felder MD Primary Care Provider [phone] Angelina Holman PA-C Unavailable [phone] Encounter Details Date Type Department Care Team Description 01/09/2024 Orders Only Medical Records [address] [place] [address] Fabián Suárez MD Social History Tobacco Use [...] Date/Time Associated Diagnosis Comments OUTSIDE LAB Routine 01/08/2024 documented in this encounter Results * OUTSIDE LAB (01/08/2024) [facility] documented in this encounter Visit Diagnoses Not on filedocumented in this encounter Care Teams Mechanism Assembler Relationship Specialty Start Date End Date Farrah Felder MD PCP - General Internal Medicine 12/03/21 Angelina Holman PA-C [address] [phone] Thoracic Surgery 09/04/23 documented as of this encounter
--- OUTSIDE RECORDS SUMMARY | 2024-10-30 12:13 | XMS_ITS | Encounter Summary ---
Author Organization [facility] Address [address] [place] [address] Care Team Providers Care Asset Protection Greeter Name Role Phone Shama Shafer MD Primary Care Provider [phone] Farrah Felder MD Primary Care Provider [phone] Angelina Holman PA-C Unavailable [phone] Reason for Visit * Reason Onset Date Comments medication problems 04/26/2013 Encounter Details Date Type Department Care Team Description 04/26/2013 Telephone Adult Medicine [address] [phone] Shama Shafer MD [address] [place] [phone] medication problems Social History Tobacco Use Types [...] Plan: FEP STANDARD $20 Product Type: PPO [id number] documented in this encounter Plan of Treatment Not on file documented as of this encounter Visit Diagnoses Not on filedocumented in this encounter Care Teams Asset Protection Greeter Relationship Specialty Start Date End Date Shama Shafer MD [address] [place] [address] PCP - General Internal Medicine 04/29/11 12/02/21 Farrah Felder MD [address] [place] [address] PCP - General Internal Medicine 12/03/21 Angelina Holman PA-C [address] [place] [phone] Thoracic Surgery 09/04/23 documented as of this encounter
--- OUTSIDE RECORDS SUMMARY | 2024-10-30 12:13 | XMS_ITS | Encounter Summary ---
Author Organization [facility] Address [address] [place] [address] Care Team Providers Care Glazier Artist Name Role Phone Farrah Felder MD Primary Care Provider [phone] Angelina Holman PA-C Unavailable [phone] Encounter Details Date Type Department Care Team Description 02/05/2024 Pt. Non Urgent Medical Question Internal Medicine - [address], [address] [place], [place] [phone] Farrah Felder MD [address] [place] [phone] Social History Tobacco Use Types Packs/Day [...] on filedocumented in this encounter Care Teams Glazier Artist Relationship Specialty Start Date End Date Farrah Felder MD PCP - General Internal Medicine 12/03/21 Angelina Holman PA-C [address] [place] [phone] Thoracic Surgery 09/04/23 documented as of this encounter
--- OUTSIDE RECORDS SUMMARY | 2024-10-30 12:13 | XMS_ITS | Clinical Summary ---
Author Organization [facility] Address [address] [place] [address] Care Team Providers Care Fuel Cell Systems Engineer Name Role Phone Farrah Felder MD Primary Care Provider [phone] Allergies Active Allergy Reactions Criticality Noted Date [...] age to complete this topic Care Teams Fuel Cell Systems Engineer Relationship Specialty Start Date End Date Farrah Felder MD 175 [facility] [address] [place] [address] PCP - General Internal Medicine 01/31/23
--- OUTSIDE RECORDS SUMMARY | 2024-10-30 12:13 | XMS_ITS | Encounter Summary ---
Author Organization [facility] Address [address] [place] [address] Care Team Providers Care Waterfront Director Name Role Phone Farrah Felder MD Primary Care Provider [phone] Encounter Details Date Type Department Care Team (Latest Contact Info) Description 08/19/2024 Lab Requisition [facility] - Main Lab [address] [facility] [place] [address] Jose Carlos Ponce MD [address] [place] [phone] superintendent terminal (current) use of unspecified immunomodulators and immunosuppressants [...] for your loved ones. For example, child psychiatrist or elderly care for an older [...] Description 11/04/2024 10:[address] [facility] [address] [facility] 2nd [place] [phone] 12/11/2024 10:30 AM EDT Office Visit [facility] Hematology Oncology [address] [place] [phone] Fabián Suárez MD [address] [place] [address] 03/06/2025 11:30 AM EDT Office Visit Pulmonolgy - [place] [address] [facility] [address] [place] [phone] Leisa Infante MD 175 [facility] 200 [place] [address] documented as of this encounter Procedures Procedure Name Priority Date/Time Associated Diagnosis Comments ALANINE AMINOTRANSFERASE Routine 08/19/2024 9:50 AM EST superintendent terminal (current) use of unspecified immunomodulators and immunosuppressants ASPARTATE AMINOTRANSFERASE Routine 08/19/2024 9:50 AM EST superintendent terminal (current) use of unspecified immunomodulators and immunosuppressants documented in this encounter Results * (ABNORMAL) Aspartate aminotransferase (08/19/2024 9:50 AM EST) AST (SGOT) 9(L) 10 - 42 unit/L LAB CHEMISTRY METHOD 08/19/2024 10:[address] [facility] Blood Venous blood specimen / Unknown 08/19/2024 9:50 AM EST 08/19/2024 10:07 AM EST us Jose Carlos Ponce MD LAB BLOOD ORDERABLES Padmini l Result [facility] [address] [place] [address], * Alanine aminotransferase (08/19/2024 9:50 AM EST) ALT (SGPT) 19 10 - 60 unit/L LAB CHEMISTRY METHOD 08/19/2024 10:[address] [facility] Blood Venous blood specimen / Unknown 08/19/2024 9:50 AM EST 08/19/2024 10:07 AM EST us Jose Carlos Ponce MD LAB BLOOD ORDERABLES Padmini l Result [facility] [address] [place] [address], documented in this encounter Visit Diagnoses Diagnosis superintendent terminal (current) use of unspecified immunomodulators and immunosuppressants documented in this encounter Additional Health Concerns Assessment Noted Time PHQ-9 Depression Total Score: 1 07/11/19 25 3:06 PM EST documented as of this encounter Care Teams Waterfront Director Relationship Specialty Start Date End Date Farrah Felder MD [address] [phone] PCP - General Internal Medicine 05/13/24 documented as of this encounter
--- OUTSIDE RECORDS SUMMARY | 2024-10-30 12:13 | XMS_ITS | Encounter Summary ---
Author Organization [facility] Address [address] [facility] [place] [address] Care Team Providers Care Operations Superintendent Name Role Phone Farrah Felder MD Primary Care Provider [phone] Angelina Holman PA-C Unavailable [phone] Encounter Details Date Type Department Care Team Description 03/14/2024 Orders Only Medical Records [address] [place] [address] Fabián Suárez MD Social History Tobacco Use [...] filedocumented in this encounter Care Teams Operations Superintendent Relationship Specialty Start Date End Date Farrah Felder MD PCP - General Internal Medicine 12/03/21 Angelina Holman PA-C [address] [phone] Thoracic Surgery 09/04/23 documented as of this encounter
--- OUTSIDE RECORDS SUMMARY | 2024-10-30 12:13 | XMS_ITS | Encounter Summary ---
Author Organization [facility] Address [address] [place] [address] Care Team Providers Care Senior Project Architect Name Role Phone Shama Shafer MD Primary Care Provider [phone] Farrah Felder MD Primary Care Provider [phone] Angelina Holman PA-C Unavailable [phone] Encounter Details Date Type Department Care Team Description 02/12/2018 Orders Only Adult Medicine [address] [address] Idania Kenney DO Leg edema (Primary Dx); Erysipelas; Pruritus Social History Tobacco Use Types Packs/Day Years Used Date Smoking Tobacco: Former Cigarettes 0.5 31 Q uit: 09/24/2012 Smokeless Tobacco: Former Comments:Started @ age 16- 4 days w/out [...] on file documented as of this encounter Results * (ABNORMAL) FERRITIN ASSAY (02/12/2018 9:19 AM EDT) FERRITIN 533(H) 20 - 350 ng/ml 02/12/2018 10:30 AM EDT [facility] 02/12/2018 9:19 AM EDT 02/12/2018 9:20 AM EDT Idania Cleary Colsumitcco DO LAB [facility] [address] [place] [address] * TSH (02/12/2018 9:19 AM EDT) TSH 0.81 0.40 - 4.00 mIU/ml 02/12/2018 10:30 AM EDT [facility] 02/12/2018 9:19 AM EDT 02/12/2018 9:20 AM EDT Idania Triplett DO LAB Performing Organization Address [facility] Co de Phone Number [address] * (ABNORMAL) COMPREHENSIVE METABOLIC PANEL (02/12/2018 9:19 AM EDT) GLUCOSE 122(H) 70 - 100 mg/dL 02/12/2018 10:30 AM T [facility] Comment: Reference range applicable to fasting specimens only Based on recommendations from the ADA and AACE, the fasting glucose reference range has been changed to 70-100 mg/dL. ??This change is effective November 23, 2009 BUN 12 5 - 25 mg/dL 02/12/2018 10:30 AM [facility] CREAT 0.6(L) 0.7 - 1.5 mg/dL 02/12/2018 10:30 AM [facility] BUN/CREAT RATIO 20.0 6.0 - 20.0 02/12/2018 10:30 AM [facility] GFR > 60 >60 02/12/2018 10:31 AM T [facility] Comment: If patient is -Austrian, multiply result by 1.21 Chronic Kidney Disease: < 60 ml/min/1.73 square meters Kidney Failure: < 15 ml/min/1.73 square meters Sodium 141 133 - 145 mEq/L 02/12/2018 10:30 AM EDT [facility] Potassium 4.9 3.5 - 5.5 mEq/L 02/12/2018 10:30 AM EDT [facility] Chloride 106 96 - 108 mEq/L 02/12/2018 10:30 AM EDT [facility] CO2 23.4 21.0 - 32.0 mEq/L 02/12/2018 10:30 AM EDT [facility] CALCIUM 9.2 8.5 - 10.5 mg/dL 02/12/2018 10:30 AM EDT [facility] TOTAL PROTEIN 6.9 6.0 - 8.3 gm/dL 02/12/2018 10:30 AM EDT [facility] Albumin 3.8 3.2 - 5.6 gm/dL 02/12/2018 10:30 AM EDT [facility] GLOBULIN 3.1 1.9 - 4.4 gm/dL 02/12/2018 10:30 AM EDT [facility] A/G RATIO 1.2 1.1 - 2.3 02/12/2018 10:30 AM EDT [facility] BILI,TOTAL 0.2 0.0 - 1.2 mg/dL 02/12/2018 10:30 AM EDT [facility] AST (SGOT) 20 10 - 42 U/L 02/12/2018 10:30 AM EDT [facility] ALT( SGPT) 37 10 - 60 U/L 02/12/2018 10:30 AM EDT [facility] ALK PHOS 55 42 - 121 U/L 02/12/2018 10:30 AM EDT [facility] 02/12/2018 9:19 AM EDT 02/12/2018 9:20 AM EDT Idania Triplett DO LAB [facility] [address] [facility] documented in this encounter Visit Diagnoses Diagnosis Leg edema- Primary Edema Erysipelas Pruritus Unspecified pruritic disorder documented in this encounter Care Teams Senior Project Architect Relationship Specialty Start Date End Date Shama Shafer MD [address] [place] [address] PCP - General Internal Medicine 04/29/11 12/02/21 Farrah Felder MD [address] [place] [address] PCP - General Internal Medicine 12/03/21 Angelina Holman PA-C [address] [place] [phone] Thoracic Surgery 09/04/23 documented as of this encounter
--- OUTSIDE RECORDS SUMMARY | 2024-10-30 12:13 | XMS_ITS | Encounter Summary ---
Author Organization [facility] Address [address] [facility] [place] [address] Care Team Providers Care Heel Builder Machine Name Role Phone Shama Shafer MD Primary Care Provider [phone] Farrah Felder MD Primary Care Provider [phone] Angelina Holman PA-C Unavailable [phone] Encounter Details Date Type Department Care Team Description 11/21/2017 SCAN Medical Records [address] [place] [id number] Abstract, Provider Social History Tobacco Use Types [...] on filedocumented in this encounter Care Teams Heel Builder Machine Relationship Specialty Start Date End Date Shama Shafer MD [address] [place] [address] PCP - General Internal Medicine 04/29/11 12/02/21 Farrah Felder MD [address] [place] [address] PCP - General Internal Medicine 12/03/21 Angelina Holman PA-C [address] [place] [phone] Thoracic Surgery 09/04/23 documented as of this encounter
--- OUTSIDE RECORDS SUMMARY | 2024-10-30 12:13 | XMS_ITS | Encounter Summary ---
Author Organization [facility] Address [address] [place] [address] Care Team Providers Care Ski Patroller Name Role Phone Farrah Felder MD Primary Care Provider [phone] Angelina Holman PA-C Unavailable [phone] Encounter Details Date Type Department Care Team Description 01/22/2024 Pt. Non Urgent Medical Question Internal Medicine - [address], [address] [place], [place] [phone] Farrah Felder MD [address] [place] [phone] Social History Tobacco Use Types Packs/Day [...] on filedocumented in this encounter Care Teams Ski Patroller Relationship Specialty Start Date End Date Farrah Felder MD PCP - General Internal Medicine 12/03/21 Angelina Holman PA-C [address] [place] [phone] Thoracic Surgery 09/04/23 documented as of this encounter
--- OUTSIDE RECORDS SUMMARY | 2024-10-30 12:13 | XMS_ITS | Encounter Summary ---
Author Organization [facility] Address [address] [place] [address] Care Team Providers Care Diesel Truck Mechanic Name Role Phone Shama Shafer MD Primary Care Provider [phone] Farrah Felder MD Primary Care Provider [phone] Angelina Holman PA-C Unavailable [phone] Reason for Visit * Reason Onset Date Comments refill request 11/06/2013 Encounter Details Date Type Department Care Team Description 11/06/2013 Refill Adult Medicine [address] [phone] Shama Shafer MD [address] [place] [phone] refill request Social History Tobacco Use Types [...] NO Patients current insurance carrier is: [place]: [place] Plan: FEP STANDARD $20 Product Type: PPO [id number] documented in this encounter Plan of Treatment Not on file documented as of this encounter Visit Diagnoses Not on filedocumented in this encounter Care Teams Diesel Truck Mechanic Relationship Specialty Start Date End Date Shama Shafer MD [address] [place] [address] PCP - General Internal Medicine 04/29/11 12/02/21 Farrah Felder MD [address] [place] [address] PCP - General Internal Medicine 12/03/21 Angelina Holman PA-C [address] [place] [phone] Thoracic Surgery 09/04/23 documented as of this encounter
--- OUTSIDE RECORDS SUMMARY | 2024-10-30 12:13 | XMS_ITS | Encounter Summary ---
Author Organization [facility] Address [address] [place] [address] Care Team Providers Care Skin Drier Name Role Phone Farrah Felder MD Primary Care Provider [phone] Angelina Holman PA-C Unavailable [phone] Encounter Details Date Type Department Care Team Description 01/01/2024 Pt. Non Urgent Medical Question Internal Medicine - [address], [address] [place], [place] [phone] Farrah Felder MD [address] [place] [phone] Social History Tobacco Use Types Packs/Day [...] on filedocumented in this encounter Care Teams Skin Drier Relationship Specialty Start Date End Date Farrah Felder MD PCP - General Internal Medicine 12/03/21 Angelina Holman PA-C [address] [place] [phone] Thoracic Surgery 09/04/23 documented as of this encounter
--- OUTSIDE RECORDS SUMMARY | 2024-10-30 12:13 | XMS_ITS | Encounter Summary ---
Author Organization [facility] Address [address] [place] [address] Care Team Providers Care Plastic Cnc Machine Operator Name Role Phone Farrah Felder MD Primary Care Provider [phone] Angelina Holman PA-C Unavailable [phone] Encounter Details Date Type Department Care Team Description 03/12/2024 Pt. Non Urgent Medical Question Internal Medicine - [address], [address] [place], [place] [phone] Farrah Felder MD [address] [place] [phone] Social History Tobacco Use Types Packs/Day [...] on filedocumented in this encounter Care Teams Plastic Cnc Machine Operator Relationship Specialty Start Date End Date Farrah Felder MD PCP - General Internal Medicine 12/03/21 Angelina Holman PA-C [address] [place] [phone] Thoracic Surgery 09/04/23 documented as of this encounter
--- OUTSIDE RECORDS SUMMARY | 2024-10-30 12:13 | XMS_ITS | Encounter Summary ---
Author Organization [facility] Address [address] [place] [address] Care Team Providers Care Offset Press Operator Apprentice Name Role Phone Farrah Felder MD Primary Care Provider [phone] Angelina Holman PA-C Unavailable [phone] Encounter Details Date Type Department Care Team Description 05/01/2024 Orders Only Internal Medicine - [address], [address] [place], [place] [phone] Farrah Felder MD [address] [place] [phone] Type 2 diabetes mellitus without complication, with long-term current use of insulin (HCC); Essential hypertension, benign; Hyperlipidemia, unspecified hyperlipidemia type Social History Tobacco Use Types Packs/Day Years [...] Procedure Name Priority Date/Time Associated Diagnosis Comments HEMOGLOBIN A1C Routine 04/15/2024 Type 2 diabetes mellitus without complication, with long-term current use of insulin (HCC) Essential hypertension, benign Hyperlipidemia, unspecified hyperlipidemia type documented in this encounter Results * HEMOGLOBIN A1C (04/15/2024) 04/15/2024 Farrah Felder MD LAB [employer] documented in this encounter Visit Diagnoses Diagnosis Type 2 diabetes mellitus without complication, with long-term current use of insulin (HCC) Essential hypertension, benign Hyperlipidemia, unspecified hyperlipidemia type documented in this encounter Care Teams Offset Press Operator Apprentice Relationship Specialty Start Date End Date Farrah Felder MD PCP - General Internal Medicine 12/03/21 Angelina Holman PA-C [address] [place] [phone] Thoracic Surgery 09/04/23 documented as of this encounter
--- OUTSIDE RECORDS SUMMARY | 2024-10-30 12:13 | XMS_ITS | Encounter Summary ---
Author Organization [facility] Address [address] [facility] [place] [address] Care Team Providers Care Environmental Officer Name Role Phone Shama Shafer MD Primary Care Provider [phone] Farrah Felder MD Primary Care Provider Angelina Holman PA-C Unavailable [phone] Encounter Details Date Type Department Care Team Description 11/21/2017 Orders Only Pulmonology - [facility] [address] [facility] [address] [place] [address] Benjamín Doan MD 175 [facility] [address] [place] [phone] Sinus complaint; Obstructive chronic bronchitis with exacerbation (HCC); SHAWN and COPD overlap syndrome (HCC); Centrilobular emphysema (HCC); Obstructive sleep apnea AHI 6; Pulmonary nodules; Former smoker Social History Tobacco Use Types Packs/Day Years [...] Procedure Name Priority Date/Time Associated Diagnosis Comments CHG RADEX SINUSES PARANASAL COMPL MINIMUM 3 VIEWS STAT 11/17/2017 Sinus complaint Obstructive chronic bronchitis with exacerbation (HCC) SHAWN and COPD overlap syndrome (HCC) Centrilobular emphysema (HCC) Obstructive sleep apnea AHI 6 Pulmonary nodules Former smoker documented in this encounter Results * X-RAY EXAM OF SINUSES, COMPLETE (11/17/2017) Narrative Authorizing Provider Result Lon Doan MD RADIOLOGY documented in this encounter Visit Diagnoses Diagnosis Sinus complaint Other symptoms involving respiratory system and chest Obstructive chronic bronchitis with exacerbation (HCC) Obstructive chronic bronchitis with exacerbation SHAWN and COPD overlap syndrome (HCC) Centrilobular emphysema (HCC) Other emphysema Obstructive sleep apnea AHI 6 Obstructive sleep apnea (adult) (pediatric) Pulmonary nodules Other nonspecific abnormal finding of lung field Former smoker Personal history of tobacco use, presenting hazards to health documented in this encounter Care Teams Environmental Officer Relationship Specialty Start Date End Date Shama Shafer MD [address] [place] [address] PCP - General Internal Medicine 04/29/11 12/02/21 Farrah Felder MD [address] [place] [address] PCP - General Internal Medicine 12/03/21 Angelina Holman PA-C [address] [place] [phone] Thoracic Surgery 09/04/23 documented as of this encounter
--- OUTSIDE RECORDS SUMMARY | 2024-10-30 12:13 | XMS_ITS | Encounter Summary ---
Author Organization [facility] Address [address] [place] [address] Care Team Providers Care Sander Hand Name Role Phone Farrah Felder MD Primary Care Provider [phone] Angelina Holman PA-C Unavailable [phone] Encounter Details Date Type Department Care Team Description 03/25/2024 Pt. Non Urgent Medical Question Internal Medicine - [address], [address] [place], [place] [phone] Farrah Felder MD [address] [place] [phone] Social History Tobacco Use Types Packs/Day [...] on filedocumented in this encounter Care Teams Sander Hand Relationship Specialty Start Date End Date Farrah Felder MD PCP - General Internal Medicine 12/03/21 Angelina Holman PA-C [address] [place] [phone] Thoracic Surgery 09/04/23 documented as of this encounter
--- OUTSIDE RECORDS SUMMARY | 2024-10-30 12:13 | XMS_ITS | Encounter Summary ---
Author Organization [facility] Address [address] [facility] [place] [address] Care Team Providers Care Industrial Conveyor Belt Repairer Name Role Phone Shama Shafer MD Primary Care Provider [phone] Farrah Felder MD Primary Care Provider [phone] Angelina Holman PA-C Unavailable [phone] Encounter Details Date Type Department Care Team Description 09/20/2021 Cloth Tester Report Medical Records [address] [place] [address] [place] Social History Tobacco Use Types Packs/Day Years [...] filedocumented in this encounter Care Teams Industrial Conveyor Belt Repairer Relationship Specialty Start Date End Date Shama Shafer MD [address] [place] [address] PCP - General Internal Medicine 04/29/11 12/02/21 Farrah Felder MD [address] [place] [address] PCP - General Internal Medicine 12/03/21 Angelina Holman PA-C [address] [place] [phone] Thoracic Surgery 09/04/23 documented as of this encounter
--- OUTSIDE RECORDS SUMMARY | 2024-10-30 12:13 | XMS_ITS | Encounter Summary ---
Author Organization [facility] Address [address] [place] [address] Care Team Providers Care Roll Filler Name Role Phone Farrah Felder MD Primary Care Provider [phone] Angelina Holman PA-C Unavailable [phone] Encounter Details Date Type Department Care Team Description 12/06/2021 Pt. Non Urgent Medical Question Internal Medicine - [address], [address] [place], [place] [phone] Farrah Felder MD [address] [place] [phone] Social History Tobacco Use Types Packs/Day [...] on filedocumented in this encounter Care Teams Roll Filler Relationship Specialty Start Date End Date Farrah Felder MD PCP - General Internal Medicine 12/03/21 Angelina Holman PA-C [address] [place] [phone] Thoracic Surgery 09/04/23 documented as of this encounter
--- OUTSIDE RECORDS SUMMARY | 2024-10-30 12:13 | XMS_ITS | Encounter Summary ---
Author Organization [facility] Address [address] [place] [address] Care Team Providers Care Vp Integration Name Role Phone Farrah Felder MD Primary Care Provider [phone] Reason for Visit * Episode Based Medications (Routine) - Authorized Specialty Diagnoses / Procedures Referred By Contac t Referred To Contact Diagnoses Acute ITP (CMS/HCC V24, CMS/HCC V28) Fabián Suárez MD [address] [place] [address] Phone: tel: fax: [facility] [address] [place] [phone] Phone: tel: fax: Referral ID Status Reason Start Date Expiration Date V isits Requested Visits Authorized [id number] Authorized 05/08/2024 05/08/2025 1 113 Encounter Details Date Type Department Care Team (Latest Contact Info) Description 10/28/2024 9:30 AM EDT Hospital Encounter [address] [address] Fabián Suárez MD [address] [place] [address] Acute ITP (CMS/HCC V24, CMS/HCC [...] for your loved ones. For example, child support specialist or elderly care for an older adult? [...] Description 11/04/2024 10:00 AM EDT Appointment [facility] [address] [facility] 2nd [place] [phone] 12/11/2024 10:30 AM EDT Office Visit [facility] Hematology Oncology [address] [place] [phone] Fabián Suárez MD [address] [place] [phone] 03/06/2025 11:30 AM EDT Office Visit Pulmonolgy - [place] [address] [phone] Leisa Infante MD [address] [address] documented as of this encounter Procedures Procedure Name Priority Date/Time Associated Diagnosis Comments EXTRA TUBES Routine 10/28/2024 9:38 AM EDT CBC WITH AUTO DIFFERENTIAL STAT 10/28/2024 9:38 AM EDT Acute ITP ([facility]/HCC V24, [facility]/HCC V28) LAVENDER - EDTA Routine 10/28/2024 9:38 AM EDT CBC AND DIFFERENTIAL STAT 10/28/2024 9:38 AM EDT Acute ITP (CMS/HCC V24, CMS/HCC V28) documented in this encounter Results * (ABNORMAL) CBC auto differential (10/28/2024 9:38 AM EDT) WBC 10.6 4.8 - 10.8 K/mcL LAB HEMETOLOGY METHOD 10/28/2024 11:09 AM EDT [facility] RBC 4.30 3.80 - 4.80 M/mcL LAB HEMETOLOGY METHOD 10/28/2024 11:09 AM EDT [facility] Hemoglobin 13.4 11.5 - 16.0 [...] LAB HEMETOLOGY METHOD 10/28/2024 11:09 AM EDT [facility] Basophils Relative 0.7 % LAB HEMETOLOGY METHOD 10/28/2024 11:09 AM [facility] Immature Granulocytes Relative 0.4 % LAB HEMETOLOGY METHOD 10/28/2024 11:09 AM EDT [facility] Neutrophils Absolute 6.23 1.50 - 7.00 K/mcL LAB HEMETOLOGY METHOD 10/28/2024 11:09 AM EDT [facility] Lymphocytes Absolute 3.09 1.00 - 5.00 K/mcL LAB HEMETOLOGY METHOD 10/28/2024 11:09 AM [facility] Monocytes Absolute 0.92 0.20 - 1.00 K/mcL LAB HEMETOLOGY METHOD 10/28/2024 11:09 AM [facility] Eosinophils Absolute 0.25 0.00 - 0.50 K/mcL LAB HEMETOLOGY METHOD 10/28/2024 11:09 AM [facility] Basophils Absolute 0.07 0.00 - 0.20 K/mcL LAB HEMETOLOGY METHOD 10/28/2024 11:09 AM [facility] Immature Granulocytes Absolute 0.04(H) 0.00 - 0.03 K/mcL LAB HEMETOLOGY METHOD 10/28/2024 11:09 AM EDT [facility] Blood Venous blood specimen / Unknown Venipuncture / Unknown 10/28/2024 9:38 AM EDT 10/28/2024 11:02 AM EDT Fabián Suárez MD LAB BLOOD ORDERABLE S Final Result [facility] [address] [place] [address], * Lavender tube (10/28/2024 9:38 AM EDT) Extra Tube Hold for add-ons. 10/28/2024 12:01 PM EDT [facility] Comment:Auto resulted. Blood Venous blood specimen / Unknown 10/28/2024 9:38 AM EDT 10/28/2024 10:06 AM EDT Subrammaribell Suárez MD LAB BLOOD ORDERABLE S Final Result [facility] [address] [place] [address], documented in this encounter Visit Diagnoses Diagnosis Acute ITP (CMS/[facility] V24, CMS/[facility] V28)- Primary Immune thrombocytopenic purpura [...] documented as of this encounter Care Teams Vp Integration Relationship Specialty Start Date End Date Farrah Felder MD 175 [facility] [address] [place] [address] PCP - General Internal Medicine 05/13/24 documented as of this encounter
--- OUTSIDE RECORDS SUMMARY | 2024-10-30 12:13 | XMS_ITS | Encounter Summary ---
Author Organization [facility] Address [address] [place] [address] Care Team Providers Care Ship Manager Name Role Phone Farrah Felder MD Primary Care Provider [phone] Angelina Holman PA-C Unavailable [phone] Encounter Details Date Type Department Care Team Description 02/19/2024 Pt. Non Urgent Medical Question Internal Medicine - [address], [address] [place], [place] [phone] Farrah Felder MD [address] [place] [address] Social History Tobacco Use Types Packs/Day [...] on filedocumented in this encounter Care Teams Ship Manager Relationship Specialty Start Date End Date Farrah Felder MD PCP - General Internal Medicine 12/03/21 Angelina Holman PA-C [address] [place] [phone] Thoracic Surgery 09/04/23 documented as of this encounter
--- OUTSIDE RECORDS SUMMARY | 2024-10-30 12:13 | XMS_ITS | Encounter Summary ---
Author Organization [facility] Address [address] [place] [address] Care Team Providers Care Explosive Operator Fuse Name Role Phone Farrah Felder MD Primary Care Provider [phone] Angelina Holman PA-C Unavailable [phone] Encounter Details Date Type Department Care Team Description 04/22/2024 Pt. Non Urgent Medical Question Internal Medicine - [address], [address] [place], [place] [phone] Farrah Felder MD [address] [place] [phone] Social History Tobacco Use Types Packs/Day [...] Telephone Encounter - Ernestine Yu M.A. - 04/22/2024 9:21 AM EDTFrom: Shruthi Lama To: Magnolia Bradford Sent: 04/22/2024 8:45 AM EDT Subject: Weekly Blood Sugar and Blood Pressure Levels/Refill Request Here are my levels for the week, also I need my Naproxen 500mg refilled for each month due to my arthritis. Thank you. documented in this encounter Plan of Treatment Not on file documented as of this encounter Visit Diagnoses Not on filedocumented in this encounter Care Teams Explosive Operator Fuse Relationship Specialty Start Date End Date Farrah Felder MD PCP - General Internal Medicine 12/03/21 Angelina Holman PA-C [address] [place] [address] Thoracic Surgery 09/04/23 documented as of this encounter
--- OUTSIDE RECORDS SUMMARY | 2024-10-30 12:13 | XMS_ITS | Encounter Summary ---
Author Organization [facility] Address [address] [facility] [place] [address] Care Team Providers Care Nurse Transplant Name Role Phone Farrah Felder MD Primary Care Provider [phone] Angelina Holman PA-C Unavailable [phone] Encounter Details Date Type Department Care Team Description 12/13/2023 Orders Only Medical Records [address] [place] [address] Fabián Suárez MD Social History Tobacco Use [...] Date/Time Associated Diagnosis Comments OUTSIDE LAB Routine 12/12/2023 documented in this encounter Results * OUTSIDE LAB (12/12/2023) [facility] documented in this encounter Visit Diagnoses Not on filedocumented in this encounter Care Teams Nurse Transplant Relationship Specialty Start Date End Date Farrah Felder MD PCP - General Internal Medicine 12/03/21 Angelina Holman PA-C [address] [phone] Thoracic Surgery 09/04/23 documented as of this encounter
--- OUTSIDE RECORDS SUMMARY | 2024-10-30 12:13 | XMS_ITS | Encounter Summary ---
Author Organization [facility] Address [address] [place] [address] Care Team Providers Care Shoe Cementer Name Role Phone Jailene Tapia MD Primary Care Provider [phone] Shama Shafer MD Primary Care Provider [phone] Farrah Felder MD Primary Care Provider [phone] Angelina Holman PA-C Unavailable [phone] Encounter Details Date Type Department Care Team Description 09/11/2009 [facility] Medical Records [address] [place] [address] Nico Alcala MD Social History Tobacco Use [...] on filedocumented in this encounter Care Teams Shoe Cementer Relationship Specialty Start Date End Date Jailene Tapia MD [address] [place] [address] PCP - General 07/21/08 04/28/11 Shama Shafer MD [address] [place] [address] PCP - General Internal Medicine 04/29/11 12/02/21 Farrah Felder MD [address] [place] [address] PCP - General Internal Medicine 12/03/21 Angelina Holman PA-C [address] [place] [phone] Thoracic Surgery 09/04/23 documented as of this encounter
--- OUTSIDE RECORDS SUMMARY | 2024-10-30 12:13 | XMS_ITS | Encounter Summary ---
Author Organization [facility] Address [address] [place] [address] Care Team Providers Care Customer Trainer Name Role Phone Shama Shafer MD Primary Care Provider [phone] Farrah Felder MD Primary Care Provider [phone] Angelina Holman PA-C Unavailable [phone] Encounter Details Date Type Department Care Team Description 07/19/2018 Telephone General Surgery - [address] [place] [address] Lily Benjamin MD [address] [place] [phone] Social History Tobacco Use Types Packs/Day Years [...] encounter Miscellaneous Notes * Telephone Encounter - Diya Baptiste M.A. - 07/19/2018 2:48 PM EST Called patient, left message for return call as no name was stated on voice mail, for results documented in this encounter Plan of Treatment Not on file documented as of this encounter Visit Diagnoses Not on filedocumented in this encounter Care Teams Customer Trainer Relationship Specialty Start Date End Date Shama Shafer MD [address] [place] [address] PCP - General Internal Medicine 04/29/11 12/02/21 Farrah Felder MD [address] [place] [address] PCP - General Internal Medicine 12/03/21 Angelina Holman PA-C [address] [place] [phone] Thoracic Surgery 09/04/23 documented as of this encounter
--- OUTSIDE RECORDS SUMMARY | 2024-10-30 12:13 | XMS_ITS | Encounter Summary ---
Author Organization [facility] Address [address] [place] [address] Care Team Providers Care Heel Attacher Wood Name Role Phone Farrah Felder MD Primary Care Provider [phone] Angelina Holman PA-C Unavailable [phone] Encounter Details Date Type Department Care Team Description 03/18/2024 Pt. Non Urgent Medical Question Internal Medicine - [address], [address] [place], [place] [phone] Farrah Felder MD [address] [place] [address] Social History Tobacco Use Types Packs/Day [...] filedocumented in this encounter Care Teams Heel Attacher Wood Relationship Specialty Start Date End Date Farrah Felder MD PCP - General Internal Medicine 12/03/21 Angelina Holman PA-C [address] [place] [phone] Thoracic Surgery 09/04/23 documented as of this encounter
--- OUTSIDE RECORDS SUMMARY | 2024-10-30 12:13 | XMS_ITS | Encounter Summary ---
Author Organization [facility] Address [address] [place] [address] Care Team Providers Care Waste Specialist Name Role Phone Farrah Felder MD Primary Care Provider [phone] Angelina Holman PA-C Unavailable [phone] Encounter Details Date Type Department Care Team Description 12/11/2023 Pt. Non Urgent Medical Question Internal Medicine - [address], [address] [place], [place] [phone] Farrah Felder MD [address] [place] [address] Social History Tobacco Use Types Packs/Day [...] on filedocumented in this encounter Care Teams Waste Specialist Relationship Specialty Start Date End Date Farrah Felder MD PCP - General Internal Medicine 12/03/21 Angelina Holman PA-C [address] [place] [phone] Thoracic Surgery 09/04/23 documented as of this encounter
--- OUTSIDE RECORDS SUMMARY | 2024-10-30 12:14 | XMS_ITS | Encounter Summary ---
Author Organization [facility] Address [address] [place] [address] Care Team Providers Care Wood Miller Name Role Phone Farrah Felder MD Primary Care Provider [phone] Angelina Holman PA-C Unavailable [phone] Encounter Details Date Type Department Care Team Description 04/12/2024 Pt. Non Urgent Medical Question Pulmonology - [place] [address] [address] Leisa Trujillo MD [address] [address] Social History Tobacco Use Types [...] on file documented as of this encounter Progress Notes * Stefania Griggs - 04/12/2024 3:[address] trujillo Please advise patient mychart message documented in this encounter Miscellaneous Notes * Telephone Encounter - Stefania Griggs - 04/12/2024 3:03 PM EDTFrom: Shruthi Lama To: Sahil Trujillo Sent: 04/12/2024 1:04 PM EDT Subject: Fluticasone Propionate & Salmeterol This is a new medication you prescribed. I???m being told it???s not good to take with the Budesonide & Formaterol inhaler already prescribed. Please advise. documented in this encounter Plan of Treatment Not on file documented as of this encounter Visit Diagnoses Not on filedocumented in this encounter Care Teams Wood Miller Relationship Specialty Start Date End Date Farrah Felder MD PCP - General Internal Medicine 12/03/21 Angelina Holman PA-C [address] [place] [phone] Thoracic Surgery 09/04/23 documented as of this encounter
--- OUTSIDE RECORDS SUMMARY | 2024-10-30 12:14 | XMS_ITS | Encounter Summary ---
Author Organization [facility] Address [address] [place] [address] Care Team Providers Care Certified Orthotist Name Role Phone Farrah Felder MD Primary Care Provider [phone] Angelina Holman PA-C Unavailable [phone] Encounter Details Date Type Department Care Team Description 01/22/2022 Pt. Non Urgent Medical Question Internal Medicine - [address], [address] [place], [place] [phone] Farrah Felder MD [address] [place] [phone] Social History Tobacco Use Types Packs/Day [...] on filedocumented in this encounter Care Teams Certified Orthotist Relationship Specialty Start Date End Date Farrah Felder MD PCP - General Internal Medicine 12/03/21 Angelina Holman PA-C [address] [place] [phone] Thoracic Surgery 09/04/23 documented as of this encounter
--- OUTSIDE RECORDS SUMMARY | 2024-10-30 12:14 | XMS_ITS | Encounter Summary ---
Author Organization [facility] Address [address] [place] [address] Care Team Providers Care Box Worker Name Role Phone Farrah Felder MD Primary Care Provider [phone] Angelina Holman PA-C Unavailable [phone] Encounter Details Date Type Department Care Team Description 06/13/2022 Pt. Non Urgent Medical Question Internal Medicine - [address], [address] [place], [place] [phone] Farrah Felder MD [address] [place] [phone] Routine medical exam (Primary Dx) Social History Tobacco Use Types [...] as of this encounter Visit Diagnoses Diagnosis Routine medical exam- Primary Routine general medical examination at a health care facility documented in this encounter Care Teams Box Worker Relationship Specialty Start Date End Date Farrah Felder MD PCP - General Internal Medicine 12/03/21 Angelina Holman PA-C [address] [place] [phone] Thoracic Surgery 09/04/23 documented as of this encounter
--- OUTSIDE RECORDS SUMMARY | 2024-10-30 12:14 | XMS_ITS | Encounter Summary ---
Author Organization [facility] Address [address] [place] [address] Care Team Providers Care Lunch Cook Name Role Phone Farrah Felder MD Primary Care Provider [phone] Angelina Holman PA-C Unavailable [phone] Encounter Details Date Type Department Care Team Description 04/18/2022 Pt. Non Urgent Medical Question Internal Medicine - [place] [address] [facility], [address] [place] [address] Farrah Felder MD [address] [place] [phone] Social History Tobacco Use Types Packs/Day [...] on filedocumented in this encounter Care Teams Lunch Cook Relationship Specialty Start Date End Date Farrah Fleder MD PCP - General Internal Medicine 12/03/21 Angelina Holman PA-C [address] [phone] Thoracic Surgery 09/04/23 documented as of this encounter
--- OUTSIDE RECORDS SUMMARY | 2024-10-30 12:14 | XMS_ITS | Encounter Summary ---
Author Organization [facility] Address [address] [place] [address] Care Team Providers Care Water Control Station Engineer Name Role Phone Farrah Felder MD Primary Care Provider [phone] Angelina Holman PA-C Unavailable [phone] Encounter Details Date Type Department Care Team Description 04/15/2024 Pt. Non Urgent Medical Question Internal Medicine - [address], [address] [place], [place] [phone] Farrah Felder MD [address] [place] [phone] Social History Tobacco Use Types Packs/Day [...] filedocumented in this encounter Care Teams Water Control Station Engineer Relationship Specialty Start Date End Date Farrah Felder MD PCP - General Internal Medicine 12/03/21 Angelina Holman PA-C [address] [place] [phone] Thoracic Surgery 09/04/23 documented as of this encounter
--- OUTSIDE RECORDS SUMMARY | 2024-10-30 12:14 | XMS_ITS | Encounter Summary ---
Author Organization [facility] Address [address] [place] [address] Care Team Providers Care Furniture Rental Consultant Name Role Phone Farrah Felder MD Primary Care Provider [phone] Angelina Holman PA-C Unavailable [phone] Encounter Details Date Type Department Care Team Description 03/29/2022 Pt. Non Urgent Medical Question Internal Medicine - [place] [address] [facility], [address] [place] [address] Farrah Felder MD [address] [place] [phone] Social History Tobacco Use Types Packs/Day [...] on filedocumented in this encounter Care Teams Furniture Rental Consultant Relationship Specialty Start Date End Date Farrah Felder MD PCP - General Internal Medicine 12/03/21 Angelina Holman PA-C [address] [phone] Thoracic Surgery 09/04/23 documented as of this encounter
--- OUTSIDE RECORDS SUMMARY | 2024-10-30 12:14 | XMS_ITS | Encounter Summary ---
Author Organization [facility] Address [address] [place] [address] Care Team Providers Care Glove Boarder Name Role Phone Farrah Felder MD Primary Care Provider [phone] Angelina Holman PA-C Unavailable [phone] Encounter Details Date Type Department Care Team Description 06/13/2022 Orders Only Internal Medicine - [address], [address] [place], [place] [phone] Farrah Felder MD [address] [place] [phone] Pain of left lower extremity; Positive [...] Procedure Name Priority Date/Time Associated Diagnosis Comments VT DUP-SCAN XTR VEINS UNILATERAL/LIMITED STUDY Routine 06/10/2022 Pain of left lower extremity Positive D dimer documented in this encounter Results * EXTREMITY VEINS STUDY, UNILATERAL (06/10/2022) Farrah Felder MD ULTRASOUND documented in this encounter Visit Diagnoses Diagnosis Pain of left lower extremity Positive D dimer Abnormal coagulation profile documented in this encounter Care Teams Glove Boarder Relationship Specialty Start Date End Date Farrah Felder MD PCP - General Internal Medicine 12/03/21 Angelina Holman PA-C [address] [place] [phone] Thoracic Surgery 09/04/23 documented as of this encounter
--- OUTSIDE RECORDS SUMMARY | 2024-10-30 12:14 | XMS_ITS | Encounter Summary ---
Author Organization [facility] Address [address] [place] [address] Care Team Providers Care Instructor Watch Assembly Name Role Phone Shama Shafer MD Primary Care Provider [phone] Farrah Felder MD Primary Care Provider [phone] Angelina Holman PA-C Unavailable [phone] Reason for Visit * Reason Comments E-prescribe Rx Request Encounter Details Date Type Department Care Team Description 01/15/2015 Refill OBGYN - [place] [address] [place] [address] Polo La MD E-prescribe Rx Request Social [...] EDT WHEN WAS THE PATIENTS LAST ANNUAL VOCAL ARTIST EXAM? 01/29/14 Does patient have an upcoming [...] FEP STANDARD $20 / Product Type: PPO [id number] documented in this encounter Plan of Treatment Not on file documented as of this encounter Visit Diagnoses Not on filedocumented in this encounter Care Teams Instructor Watch Assembly Relationship Specialty Start Date End Date Shama Shafer MD [address] [place] [address] PCP - General Internal Medicine 04/29/11 12/02/21 Farrah Felder MD [address] [place] [address] PCP - General Internal Medicine 12/03/21 Angelina Holman PA-C [address] [place] [phone] Thoracic Surgery 09/04/23 documented as of this encounter
--- OUTSIDE RECORDS SUMMARY | 2024-10-30 12:14 | XMS_ITS | Encounter Summary ---
Author Organization [facility] Address [address] [place] [address] Care Team Providers Care World Designer Name Role Phone Farrah Felder MD Primary Care Provider [phone] Angelina Holman PA-C Unavailable [phone] Encounter Details Date Type Department Care Team Description 03/19/2022 Pt. Non Urgent Medical Question Internal Medicine - [place] 175 [facility], [address] [place] [address] Farrah Felder MD [address] [place] [phone] Social History Tobacco Use Types Packs/Day [...] on filedocumented in this encounter Care Teams World Designer Relationship Specialty Start Date End Date Farrah Felder MD PCP - General Internal Medicine 12/03/21 Angelina Holman PA-C [address] [phone] Thoracic Surgery 09/04/23 documented as of this encounter
[2024-10-30 17:53] LABS: MANUAL DIFF FLAG NO
[2024-10-30 18:10] LABS: Basophils Absolute Auto 0.1 X10*3/uL (0.0-0.2); Basophils Percent Auto 0.6 % (0-2); Eosinophils Absolute Auto 0.2 X10*3/uL (0.0-0.4); Eosinophils Percent Auto 2.2 % (0-4); Hematocrit 42.4 % (37.0-47.0); Hemoglobin 14.3 g/dl (12.0-16.0); Imm Gran Abs Auto 0.06 X10*3/uL (0.00-0.03); Imm Gran Pct Auto 0.6 % (0.0-0.4); Lymphocytes Absolute Auto 2.5 X10*3/uL (1.2-4.9); Lymphocytes Percent Auto 24.7 % (20-40); Mean Corpuscular HGB Conc 33.7 g/dl (31.0-35.0); Mean Corpuscular Hemoglobin 30.6 pg (27.0-33.0); Mean Corpuscular Volume 90.8 fL (80.0-98.0); Mean Platelet Volume 11.1 fL (9.4-12.3); Monocytes Percent Auto 9.9 % (2-11); Neutrophils Absolute Auto 6.2 x10*3/uL (2.0-8.3); Platelet Count 157 X10*3/uL (160-400); Red Blood Count 4.67 X10*6/uL (4.20-5.50); Red Cell Distribution Width 13.8 % (11.0-16.0)
[2024-10-30 18:11] LABS: Alanine Aminotransferase 15 U/L (0-31); Aspartate Amino Transferase 22 U/L (5-31); C Reactive Protein 0.73 mg/dL (< or = 0.50); Estimated Glomerular Filt Rate > 60
[2024-10-30 18:54] LABS: Erythrocyte Sedimentation Rate 42 MM/HR (0-20)
== END 2024-10-30 09:35 | disposition home or self-care (01) ==
LOC: HO.HKASLDS 09:34
PROVIDERS: PCP Internal Medicine; Visit Provider Internal Medicine Rheumatology
DX: Z79.899 Other long term (current) drug therapy (principal); Z79.60 Long term (current) use of unspecified immunomodulators and immunosuppressants
CPT/HCPCS: 36415; 82565; 84450; 84460; 85025; 85652; 86140

== ENCOUNTER 2024-10-30 09:34 | Outpatient (AMB) | payer BC, SELFPAY ==
--- NOTE | 2024-10-30 09:36 | A.OFFVIS_ITS ---
Vital Signs 10/30/24 09:37 Height 5 ft 4 in Weight 279 lb 1.683 oz BMI 47.9 BP 122/84 Blood Pressure Location Lt brachial Position Sitting Pulse 88 Pulse Source Pulse Oximeter Pulse Oximetry (%) 98 Oxygen Delivery Method Room Air Intake Visit Reasons: Follow Up 3mo Intake Note: Patient presents for follow up on knee pain. Accompanied by: Self / Same As Patient Allergies sulfamethoxazole [From Bactrim] Allergy (Mild, Verified 10/30/24 09:37) rash trimethoprim [From Bactrim] Allergy (Mild, Verified 10/30/24 09:37) rash hair dye Allergy (Mild, Uncoded 07/31/24 10:04) Rash HPI HPI Follow Up 3mo: Details: Denies new joint pain or swelling. She continues to have swelling in her hands. Recent platelet count is normal. She will now be having monitoring CBC is monthly ordered by Oncology. Methotrexate is causing her extremities to become limb/freeze up. There was a 2 week period In which she was not on methotrexate due to requiring labs where the side effect of extremities going limp, freezing up resolved. Review of Systems Const All systems reviewed & are unremarkable except as noted in HPI and below Physical Exam Vital Signs: Last Vital Signs Pulse 88 10/30/24 09:37 BP 122/84 10/30/24 09:37 Pulse Ox 98 10/30/24 09:37 Oxygen Delivery Method Room Air 10/30/24 09:37 BMI result Body Mass Index 47.9 Const Other: General: Comfortable CVS: RRR Respiratory: clear to auscultation bilaterally. Good respiratory effort Skin: No lesions seen MSK: No tenderness of any joints. She has soft tissue swelling around MCPs. No synovitis normal range of motion of upper extremities. Mild right knee suprapatellar effusion. Knee flexion 100 degrees bilateral. External rotation of bilateral hips is limited. Assessment & Plan Assessment & Plan (1) Rheumatoid arthritis: Comment: Methotrexate caused side effect of her extremities freezing up ? Muscle spasm, which resolved when she was off of it for 2 weeks. We discussed next steps in treatment with leflunomide to prevent radiographic progression of inflammatory arthritis. Discussed side effects, benefits and drug monitoring on leflunomide. Rheumatology history: Seropositive (RF, CCP, JUDY high titer). She has chronic soft tissue swelling of MCPs without pain or stiffness in her hands. Soft tissue swelling of MCPs did not resolve while she was on hydroxychloroquine. MRI right hand July 2024 reveals tiny joint erosion right 2nd and 4th MCPs with joint space narrowing. There is no mention of synovitis. HCQ changed to methotrexate 07/2024 to prevent radiographic progression of inflammatory arthritis as methotrexate as a better agent to use. 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 Code(s): M06.9 - Rheumatoid arthritis, unspecified Category: Medical Qualifiers: Rheumatoid factor presence: with rheumatoid factor Laterality: bilateral Plan: Discontinue methotrexate and folic acid Labs for drug monitoring on high-risk medication ordered. After lab results are back, I will send prescription for leflunomide 10 mg daily 1 month supply. She will then need labs for drug monitoring 1 month later: CBC, creatinine, AST, ALT She will avoid NSAIDs due to history of ITP Return to clinic in 3 months (2) Other medical terminologist (current) drug therapy: Code(s): Z79.899 - Other medical terminologist (current) drug therapy Category: Medical Plan: See above (3) History of ITP: Comment: On treatment Nplate SC administered in office by post tensioning ironworker helper Dr. Bobby Code(s): Z86.2 - Personal history of diseases of the blood and blood-forming organs and certain disorders involving the immune mechanism Category: Medical Plan: Treatment per post tensioning ironworker helper Avoid oral NSAIDs in setting of ITP (4) Osteoarthritis of knees, bilateral: Comment: Improved pain with bracing and diclofenac gel. She completed a few sessions of physical therapy. She is not compliant with doing exercises at home. Code(s): M17.0 - Bilateral primary osteoarthritis of knee Category: Medical Qualifiers: Osteoarthritis type: primary Qualified Code(s): M17.0 - Bilateral primary osteoarthritis of knee Plan: Continue to use diclofenac gel 1% applied to affected area every 4-6 hours as needed Continue to use knee brace I recommended obtaining ice knee wrap from [facility] when needed for knee flares Continue home exercise program. We discussed importance of compliance. Return to clinic in 3 months Plan . Orders: Orders Creatinine Today Z79.60 - termite exterminator helper (current) use of unspecified immunomodulators and immunosuppressants Erythrocyte Sedimentation Rate Today Z79.899 - Other long-term (current) drug therapy Complete Blood Count Auto Diff Today Z79.60 - termite exterminator helper (current) use of unspecified immunomodulators and immunosuppressants Aspartate Amino Transferase 1 Month Z79.60 - termite exterminator helper (current) use of unspecified immunomodulators and immunosuppressants Creatinine 1 Month Z79.60 - termite exterminator helper (current) use of unspecified immunomodulators and immunosuppressants Alanine Aminotransferase Today Z79.60 - penitentiary (current) use of unspecified immunomodulators and immunosuppressants Aspartate Amino Transferase Today Z79.60 - penitentiary (current) use of unspecified immunomodulators and immunosuppressants C Reactive Protein Today Z79.899 - Other long-term (current) drug therapy Alanine Aminotransferase 1 Month Z79.60 - penitentiary (current) use of unspecified immunomodulators and immunosuppressants Complete Blood Count Auto Diff 1 Month Z79.60 - penitentiary (current) use of unspecified immunomodulators and immunosuppressants Medications: New leflunomide Check labs in 1 month at [facility] 10 mg PO DAILY 30 tabs 0RF Coding Level of Care Code Est Pt Level 4 (25059) Complex EM visit Add On G2211 Diagnoses Rheumatoid arthritis M06.9 Rheumatoid factor presence: with rheumatoid factor Laterality: bilateral Other medical terminologist (current) drug therapy Z79.899 History of ITP Z86.2 Primary osteoarthritis of both knees M17.0 Osteoarthritis type: primary
[2024-10-30 09:37] VITALS: BP 122/84; PULSE 88; O2SAT 98; BMI 47.9
--- OUTSIDE RECORDS SUMMARY | 2024-10-30 10:43 | XMS_ITS | Encounter Summary ---
Author Organization [facility] Address [address] [place] [address] Care Team Providers Care Blower Insulator Name Role Phone Shama Shafer MD Primary Care Provider [phone] Farrah Felder MD Primary Care Provider [phone] Angelina Holman PA-C Unavailable [phone] Reason for Visit * Reason Onset Date Comments Call From Lab 09/22/2015 Encounter Details Date Type Department Care Team Description 09/22/2015 Telephone Adult Medicine [address] [id number] Shama Shafer MD [address] [place] [address] [phone] Call From Lab Social History Tobacco Use Types Packs/Day Years Used Date Smoking Tobacco: Former Cigarettes 0.5 Q uit: 09/24/2012 Smokeless Tobacco: Never Comments:Started @ age 16- 4 days w/out cig on 09/24/12 Alcohol Use Standard Drinks/Week Comments Yes 0 (1 standard drink = 0.6 oz pur e alcohol) 2 glasses wine daily Sex Assigned at Date Recorded Female 12/03/2021 12:06 PM EDT Job Start Date Occupation Industry Not on file Not on file Not on file documented as of this encounter Miscellaneous Notes * Telephone Encounter - Jennifer Andrew R.N. - 09/22/2015 8:16 AM EDT Theodore Herrera saw patient yesterday and swabbed for flu I got a call from the lab with positive flu A results she was already started on Tamiflu and albuteral inhaler yesterday Shruthi is a Dr Shafer patient documented in this encounter Plan of Treatment Not on file documented as of this encounter Visit Diagnoses Not on filedocumented in this encounter Care Teams Blower Insulator Relationship Specialty Start Date End Date Shama Shafer MD [address] [place] [phone] PCP - General Internal Medicine 04/29/11 12/02/21 Farrah Felder MD [address] [place] [address] PCP - General Internal Medicine 12/03/21 Angelina Holman PA-C [address] [place] [phone] Thoracic Surgery 09/04/23 documented as of this encounter
--- OUTSIDE RECORDS SUMMARY | 2024-10-30 10:43 | XMS_ITS | Encounter Summary ---
Author Organization [facility] Address [address] [place] [address] Care Team Providers Care Instructor Robotics Name Role Phone Farrah Felder MD Primary Care Provider [phone] Angelina Holman PA-C Unavailable [phone] Encounter Details Date Type Department Care Team Description 10/08/2022 Pt. Non Urgent Medical Question Internal Medicine - [address], [address] [place], [place] [phone] Farrah Felder MD [address] [place] [phone] Social History Tobacco Use Types Packs/Day Years Used Date Smoking Tobacco: Former Cigarettes 0.5 31 Q uit: 09/24/2012 Passive Smoke Exposure: Past Smokeless Tobacco: Never Comments:Started @ age 16- 4 days w/out cig on 09/24/12 Alcohol Use Standard Drinks/Week Comments Yes 0 (1 standard drink = 0.6 oz pur e alcohol) 2 glasses wine daily Sex Assigned at Date Recorded Female 12/03/2021 12:06 PM EDT Job Start Date Occupation Industry Not on file Not on file Not on file COVID-19 Exposure Response Date Recorded In the last 10 days, have yo u been in contact with someone who was confirmed or suspected to have Coronavirus/COVID-19? No / Unsure 09/16/2022 10:23 AM EST documented as of this encounter Plan of Treatment Not on file documented as of this encounter Visit Diagnoses Not on filedocumented in this encounter Care Teams Instructor Robotics Relationship Specialty Start Date End Date Farrah Felder MD PCP - General Internal Medicine 12/03/21 Angelina Holman PA-C [address] [place] [phone] Thoracic Surgery 09/04/23 documented as of this encounter
--- OUTSIDE RECORDS SUMMARY | 2024-10-30 10:43 | XMS_ITS | Encounter Summary ---
Author Organization [facility] Address [address] [facility] [place] [address] Care Team Providers Care Dinkey Engineer Name Role Phone Farrah Felder MD Primary Care Provider [phone] Angelina Holman PA-C Unavailable [phone] Encounter Details Date Type Department Care Team Description 01/15/2023 Night Triage Doc Medical Records [address] [place] [id number] Abstract, Provider Social History Tobacco Use Types Packs/Day Years [...] suspected to have Coronavirus/COVID-19? No / Unsure 01/18/2023 9:49 AM EDT documented as of this encounter Plan of Treatment Not on file documented as of this encounter Visit Diagnoses Not on filedocumented in this encounter Care Teams Dinkey Engineer Relationship Specialty Start Date End Date Farrah Felder MD PCP - General Internal Medicine 12/03/21 Angelina Holman PA-C [address] [phone] Thoracic Surgery 09/04/23 documented as of this encounter
--- OUTSIDE RECORDS SUMMARY | 2024-10-30 10:43 | XMS_ITS | Encounter Summary ---
Author Organization [facility] Address [address] [place] [address] Care Team Providers Care Curator Of Collections Name Role Phone Farrah Felder MD Primary Care Provider [phone] Angelina Holman PA-C Unavailable [phone] Encounter Details Date Type Department Care Team Description 11/01/2022 Telephone Internal Medicine - [address], [address] [place], [place] [phone] Farrah Felder MD [address] [place] [phone] Social History Tobacco Use Types Packs/Day [...] suspected to have Coronavirus/COVID-19? No / Unsure 10/27/2022 8:21 AM EDT documented as of this encounter Miscellaneous Notes * Telephone Encounter - Ernetsine Rodriguez - 11/07/2022 12:18 PM EDT 3rd attempt, line busy * Telephone Encounter - Ernestine Rodriguez - 11/07/2022 12:18 PM EDT ----- Message from Kaushal Shaw MD sent at 10/27/2022 12:28 PM EDT ----- Need to follow-up with orthopedic. There is some impingement in the joint. No arthritis * Telephone Encounter - Ernestine Rodriguez - 11/03/2022 11:32 AM EDT Called sadia singh , will try again * Telephone Encounter - Ernestine Rodriguez - 11/03/2022 11:32 AM EDT ----- Message from Kaushal Shaw MD sent at 10/27/2022 12:28 PM EDT ----- Need to follow-up with orthopedic. There is some impingement in the joint. No arthritis * Telephone Encounter - Ernestine Rodriguez - 11/01/2022 11:32 AM EDT Called line was busy, will try again * Telephone Encounter - Ernestine Rodriguez - 11/01/2022 11:32 AM EDT ----- Message from Kaushal Shaw MD sent at 10/27/2022 12:28 PM EDT ----- Need to follow-up with orthopedic. There is some impingement in the joint. No arthritis documented in this encounter Plan of Treatment Not on file documented as of this encounter Visit Diagnoses Not on filedocumented in this encounter Care Teams Curator Of Collections Relationship Specialty Start Date End Date Farrah Felder MD PCP - General Internal Medicine 12/03/21 Angelina Holman PA-C [address] [place] [phone] Thoracic Surgery 09/04/23 documented as of this encounter
--- OUTSIDE RECORDS SUMMARY | 2024-10-30 10:43 | XMS_ITS | Encounter Summary ---
Author Organization [facility] Address [address] [facility] [place] [address] Care Team Providers Care Project Manager Retail Name Role Phone Shama Shafer MD Primary Care Provider [phone] Farrah Felder MD Primary Care Provider [phone] Angelina Holman PA-C Unavailable [phone] Encounter Details Date Type Department Care Team Description 11/25/2016 Telephone Adult Medicine [address] [phone] Shama Shafer MD [address] [place] [address] Social History Tobacco Use Types Packs/Day Years [...] on file documented as of this encounter Plan of Treatment Not on file documented as of this encounter Visit Diagnoses Not on filedocumented in this encounter Care Teams Project Manager Retail Relationship Specialty Start Date End Date Shama Shafer MD [address] [place] [address] PCP - General Internal Medicine 04/29/11 12/02/21 Fararh Felder MD [address] [place], [place] [phone] PCP - General Internal Medicine 12/03/21 Angelina Holman PA-C [address] [phone] Thoracic Surgery 09/04/23 documented as of this encounter
--- OUTSIDE RECORDS SUMMARY | 2024-10-30 10:43 | XMS_ITS | Encounter Summary ---
Author Organization [facility] Address [address] [place] [address] Care Team Providers Care Actuarial Science Professor Name Role Phone Farrah Felder MD Primary Care Provider [phone] Angelina Holman PA-C Unavailable [phone] Encounter Details Date Type Department Care Team Description 10/23/2022 Pt. Referral Request [facility] My[facility] [address] [place] [address] Md Bryce Social History Tobacco Use Types Packs/Day Years [...] suspected to have Coronavirus/COVID-19? No / Unsure 10/20/2022 8:50 AM EDT documented as of this encounter Plan of Treatment Not on file documented as of this encounter Visit Diagnoses Not on filedocumented in this encounter Care Teams Actuarial Science Professor Relationship Specialty Start Date End Date Farrah Felder MD PCP - General Internal Medicine 12/03/21 Angelina Holman PA-C [address] [place] [phone] Thoracic Surgery 09/04/23 documented as of this encounter
--- OUTSIDE RECORDS SUMMARY | 2024-10-30 10:43 | XMS_ITS | Encounter Summary ---
Author Organization [facility] Address [address] [place] [address] Care Team Providers Care Special Projects Manager Name Role Phone Farrah Felder MD Primary Care Provider [phone] Angelina Holman PA-C Unavailable [phone] Encounter Details Date Type Department Care Team Description 01/10/2023 Hospital Medical Records [address] [place] [address] [facility] Social History Tobacco Use Types Packs/Day Years Used Date Smoking Tobacco: Former Cigarettes 0.5 31 Q uit: 08/23/2013 Passive Smoke Exposure: Past Smokeless Tobacco: Never Comments:Started @ age 16- 4 days w/out cig on 09/24///24: Former smoker. Started @ age 13, Spoked 1ppd, MAUREEN: 30. States quit 3 x for 5 years and then resumed smoking. Alcohol Use Standard Drinks/Week Comments Yes 0 (1 standard drink = 0.6 oz pur e alcohol) 2 glasses wine daily Sex Assigned at Date Recorded Female 12/03/2021 12:06 PM EDT Job Start Date Occupation Industry Not on file Not on file Not on file documented as of this encounter Plan of Treatment Not on file documented as of this encounter Procedures Procedure Name Priority Date/Time Associated Diagnosis Comments OUTSIDE ECHO Routine 01/11/2023 OUTSIDE LAB Routine 01/11/2023 OUTSIDE LAB Routine 01/11/2023 OUTSIDE EKG Routine 01/10/2023 OUTSIDE PLAIN FILM Routine 01/10/2023 documented in this encounter Results * OUTSIDE LAB (01/11/2023) Provider Default LAB * OUTSIDE LAB (01/11/2023) Provider Default LAB * OUTSIDE ECHO (01/11/2023) Provider Default CARDIOLOGY * OUTSIDE PLAIN FILM (01/10/2023) Provider Default RADIOLOGY * OUTSIDE EKG (01/10/2023) Provider Default CARDIOLOGY documented in this encounter Visit Diagnoses Not on filedocumented in this encounter Care Teams Special Projects Manager Relationship Specialty Start Date End Date Farrah Felder MD PCP - General Internal Medicine 12/03/21 Angelina Holman PA-C [address] [place] [phone] Thoracic Surgery 09/04/23 documented as of this encounter
--- OUTSIDE RECORDS SUMMARY | 2024-10-30 10:43 | XMS_ITS | Encounter Summary ---
Author Organization [facility] Address [address] [place] [address] Care Team Providers Care Chemical Recovery Operator Name Role Phone Farrah Felder MD Primary Care Provider [phone] Angelina Holman PA-C Unavailable [phone] Reason for Visit * Reason Onset Date Comments APPOINTMENT 12/07/2022 Encounter Details Date Type Department Care Team Description 12/07/2022 Telephone Radiology - [address] [address] Farrah Felder MD [address] [place] [phone] APPOINTMENT Social History Tobacco Use Types Packs/Day Years [...] encounter Miscellaneous Notes * Telephone Encounter - Abi Arredondo - 12/07/2022 2:58 PM EDT F.y.i. pt did not want to schedule a bone density test, therefore the orders will be removed from our scheduled orders. Thank you documented in this encounter Plan of Treatment Not on file documented as of this encounter Visit Diagnoses Not on filedocumented in this encounter Care Teams Chemical Recovery Operator Relationship Specialty Start Date End Date Farrah Felder MD PCP - General Internal Medicine 12/03/21 Angelina Holman PA-C [address] [place] [phone] Thoracic Surgery 09/04/23 documented as of this encounter
--- OUTSIDE RECORDS SUMMARY | 2024-10-30 10:44 | XMS_ITS | Encounter Summary ---
Author Organization [facility] [place] [address] Care Team Providers Care Silver Miner Blasting Name Role Phone Farrah Felder MD Primary Care Provider [phone] Encounter Details Date Type Department Care Team (Late st Contact Info) Description 04/30/2024 9:09 AM EDT Hospital Encounter TH HISTORIC ENCOUNTERS EASTERN CONVERSION ONLY Social History Tobacco Use Types Packs/Day Years Used Date Smoking Tobacco: Former Cigarettes Q uit: 08/23/2013 Passive Smoke Exposure: Past Smokeless Tobacco: Never Alcohol Use Standard Drinks/Week Comments Yes 0 (1 standard drink = 0.6 oz pur e alcohol) Housing Instability Answer Date Recorde d Are you worried that in the next 2 months you may not have stable housing? Patient declined 07/11/2024 Food Access & Nutrition Answer Date Rec orded Do you have access to a vari ety of food including fruits and vegetables? Patient declined 07/11/2024 Access to Healthcare Answer Date Record ed Within the last 3 months, yoni jc many times did you visit the emergency department for your medical care? 0 07/11/2024 Health Literacy Answer Date Recorded How often do you need to hav e someone help you when you read instructions, pamphlets, or other written material from your doctor or pharmacy? Never 07/11/2024 Caregiver: How often do you need to have someone help you when you read instructions, pamphlets, or other written material from your doctor or pharmacy? Not on file 07/11/2024 Financial Risk Answer Date Recorded How hard is it for you to pa y for the very basics like food, housing, medical care, and air conditioning / heating? Patient declined 07/11/2024 Transportation Answer Date Recorded Has the lack of transportati on kept you from meetings, work, or from getting things needed for daily living? No Has the lack of transportati on kept you from medical appointments or from getting medications? No 07/11/2024 Social Isolation Answer Date Recorded How often do you feel lonely or isolated from th ose around you? Never 07/11/2024 Food Risk Answer Date Recorded Within the past 12 months we worried whether our food would run out before we got money to buy more. Sometimes true 025 Within the past 12 months th e food we bought just didn't last and we didn't have money to get more. Never true 07/11/2024 Dependent Care Answer Date Recorded Do you need help finding or paying for care for your loved ones. For example, exceptional children teacher or elderly care for an older adult? Patient declined 07/11/2024 Education Answer Date Recorded Do you think completing more education or training, like finishing a GED, going to college, or learning a trade, would be helpful for you? Patient declined 07/11/2024 Employment and Income Answer Date Recor ded During the last four weeks, have you been actively looking for work? Patient declined 07/11/2024 Living Situation Answer Date Recorded What is your living situation? 0 07/11/2024 Comments Unknown Sex and Gender Information Value Date Recorded Sex Assigned at Female 07/22/2024 9:37 AM EST Legal Sex Female 10:57 AM EST Gender Identity Female 07/22/2024 9:37 AM EST Sexual Orientation Straight 08/19/2024 9: 27 AM EST documented as of this encounter Last Filed Vital Signs Vital Sign Reading Time Taken Comments Blood Pressure - - Pulse - - Temperature - - Respiratory Rate - - Oxygen Saturation - - Inhaled Oxygen Concentration - - Weight 129 kg (283 lb 8.2 oz) 04/22/2024 10:38 A M EDT Height 162.6 cm (5' 4 ) 02/28/2024 9:28 AM EDT Body Mass Index 48.64 03/28/2024 3:56 PM EDT documented in this encounter Progress Notes * Historical, Notes Results - 04/30/2024 9:30 AM EDT Patient arrives ambulatory for STAT CBCd and Nplate Injection. Stable assessment. Labs drawn peripherally without incident. Patient resting comfortably in chair with call jones in reach. Labs resulted and plt count 75k, labs appropriate for Nplate today. 1130- Nplate Injection administered subq in RIGHT posterior arm without incident. Patient's next appointments scheduled and provided to her. Patient stable upon discharge. documented in this encounter Plan of Treatment Upcoming Encounters Date Type Department Care Team (Late st Contact Info) Description 11/04/2024 10:00 AM EDT Appointment [facility] [address] [phone] 12/11/2024 10:30 AM EDT Office Visit [facility] Hematology Oncology [address] [place] [address] Michelle-Fabián Bobby MD [address] [place] [phone] 03/06/2025 11:30 AM EDT Office Visit Pulmonolgy - [place] [address] [phone] Leisa Infante MD [address] [phone] documented as of this encounter Visit Diagnoses Not on filedocumented in this encounter Care Teams Silver Miner Blasting Relationship Specialty Start Date End Date Farrah Felder MD PCP - General Internal Medicine 12/03/21 05/12/24 documented as of this encounter
--- OUTSIDE RECORDS SUMMARY | 2024-10-30 10:44 | XMS_ITS | Encounter Summary ---
Author Organization [facility] Address [address] [place] [address] Care Team Providers Care Senior C Developer Name Role Phone Farrah Felder MD Primary Care Provider [phone] Angelina Holman PA-C Unavailable [phone] Encounter Details Date Type Department Care Team Description 08/07/2023 Pt. Non Urgent Medical Question Internal Medicine - [place] [address] [facility], [address] [place] [address] Farrah Felder MD [address] [place] [phone] Social History Tobacco Use Types Packs/Day [...] on filedocumented in this encounter Care Teams Senior C Developer Relationship Specialty Start Date End Date Farrah Felder MD PCP - General Internal Medicine 12/03/21 Angelina Holman PA-C [address] [place] [phone] Thoracic Surgery 09/04/23 documented as of this encounter
--- OUTSIDE RECORDS SUMMARY | 2024-10-30 10:44 | XMS_ITS | Encounter Summary ---
Author Organization [facility] Address [address] [facility] [place] [address] Care Team Providers Care Oil Distributor Name Role Phone Farrah Felder MD Primary Care Provider [phone] Angelina Holman PA-C Unavailable [phone] Encounter Details Date Type Department Care Team Description 07/11/2023 Residential Direct Support Professional Report Medical Records [address] [place] [address] Fabián Suárez MD Social History Tobacco Use Types Packs/Day Years [...] on filedocumented in this encounter Care Teams Oil Distributor Relationship Specialty Start Date End Date Farrah Felder MD PCP - General Internal Medicine 12/03/21 Angelina Holman PA-C [address] [place] [phone] Thoracic Surgery 09/04/23 documented as of this encounter
--- OUTSIDE RECORDS SUMMARY | 2024-10-30 10:44 | XMS_ITS | Encounter Summary ---
Author Organization [facility] Address [address] [place] [address] Care Team Providers Care Orthopaedic Physician Assistant Name Role Phone Shama Shafer MD Primary Care Provider [phone] Farrah Felder MD Primary Care Provider [phone] Angelina Holman PA-C Unavailable [phone] Encounter Details Date Type Department Care Team Description 12/09/2017 Hospital Medical Records [address] [place] [address] Abstract, Provider Social History Tobacco Use Types Packs/Day Years Used Date Smoking Tobacco: Former Cigarettes 0.5 31 Q uit: 08/23/2013 Passive Smoke Exposure: Past Smokeless Tobacco: Never Comments:Started @ age 16- 4 days w/out cig on 09/24///: Former smoker. Started @ age 13, Spoked [...] on filedocumented in this encounter Care Teams Orthopaedic Physician Assistant Relationship Specialty Start Date End Date Shama Shafer MD [address] [place] [address] PCP - General Internal Medicine 04/29/11 12/02/21 Farrah Felder MD [address] [place] [address] PCP - General Internal Medicine 12/03/21 Angelina Holman PA-C [address] [phone] Thoracic Surgery 09/04/23 documented as of this encounter
--- OUTSIDE RECORDS SUMMARY | 2024-10-30 10:44 | XMS_ITS | Encounter Summary ---
Author Organization [facility] [place] [address] Care Team Providers Care Reo Asset Manager Name Role Phone Farrah Felder MD Primary Care Provider [phone] Encounter Details Date Type Department Care Team (Latest Contact Info) Description 04/15/2024 9:30 AM EDT Hospital Encounter TH HISTORIC ENCOUNTERS EASTERN CONVERSION ONLY Immune thrombocytopenic purpura (CMS/HCC V24, CMS/HCC V28) Social History Tobacco Use Types Packs/Day Years [...] care for your loved ones. For example, child care centre manager or elderly care for an older adult? [...] Progress Notes * Historical, Notes Results - 04/15/2024 9:30 AM EDT Arrived amb for Nplate, fourth dose, pt expressed frustration that so far her platelets continue todrop and feels the medicine is not working for her. Denies any bleeding, still has some easy bruising. Labs drawn via butterfly in left AC and sent STAT (CBC-d and A1C for PCP). 1036 Labs resulted, platelets [address] Bobby, OK to continue with 1 mcg/kg dose today. 1138 NPlate administered SubQ in RIGHT arm, well tolerated. Next 2 weeks scheduled. Calendar provided, pt left amb, stable at D/C. documented in this encounter Plan of Treatment Upcoming Encounters Date Type Department Care Team (Late st Contact Info) Description 11/04/2024 10:00 AM EDT Appointment [facility] In[facility] [address] [facility] 2nd [place] [address] 12/11/2024 10:30 AM EDT Office Visit [facility] Hematology Oncology [address] [place] [address] Fabián Suárez MD [address] [place] [address] 03/06/2025 11:30 AM EDT Office Visit Pulmonolgy [facility] [address] [phone] Leisa Infante MD [address] [address] documented as of this encounter Procedures Procedure Name Priority Date/Time Associated Diagnosis Comments ..MISCELLANEOUS REFERENCE LAB TEST 04/15/2024 documented in this encounter Results * Miscellaneous reference lab test (04/15/2024) us Provider Onbase MD LAB BLOOD ORDERABLES Final Re sult documented in this encounter Visit Diagnoses Diagnosis Immune thrombocytopenic purpura (CMS/[facility] V24, CMS/[facility] V28) Immune thrombocytopenic purpura documented in this encounter Care Teams Reo Asset Manager Relationship Specialty Start Date End Date Farrah Felder MD PCP - General Internal Medicine 12/03/21 05/12/24 documented as of this encounter
--- OUTSIDE RECORDS SUMMARY | 2024-10-30 10:44 | XMS_ITS | Encounter Summary ---
Author Organization [facility] Address [address] [facility] [place] [address] Care Team Providers Care Picking Belt Operator Name Role Phone Shama Shafer MD Primary Care Provider [phone] Farrah Felder MD Primary Care Provider [phone] Angelina Holman PA-C Unavailable [phone] Encounter Details Date Type Department Care Team Description 11/21/2017 [facility] Medical Records [address] [place] [address] Abstract, Provider Social History Tobacco Use Types [...] on filedocumented in this encounter Care Teams Picking Belt Operator Relationship Specialty Start Date End Date Shama Shafer MD [address] [place] [address] PCP - General Internal Medicine 04/29/11 12/02/21 Farrah Felder MD [address] [place] [address] PCP - General Internal Medicine 12/03/21 Angelina Holman PA-C [address] [place] [phone] Thoracic Surgery 09/04/23 documented as of this encounter
--- OUTSIDE RECORDS SUMMARY | 2024-10-30 10:44 | XMS_ITS | Encounter Summary ---
Author Organization [facility] Address [address] [place] [address] Care Team Providers Care Agency Director Name Role Phone Farrah Felder MD Primary Care Provider Encounter Details Date Type Department Care Team ([facility] Contact Info) Description 07/01/2024 Lab Requisition [facility] - Main Lab [address] [facility] [place] [address] Jose Carlos Ponce MD [address] [place] [phone] Rheumatoid arthritis, unspecified (CMS/HCC V24, CMS/HCC V28); Other long-term (current) drug therapy Social History Tobacco Use Types Packs/Day Years Used Date Smoking Tobacco: Former Cigarettes Q uit: 08/23/2013 Smokeless Tobacco: Never Alcohol Use Standard Drinks/Week Comments Yes 0 (1 standard drink = 0.6 oz pur e alcohol) Comments Unknown Sex and Gender Information Value Date Recorded Sex Assigned at Female 07/22/2024 9:37 AM EST Legal Sex Female 10:57 AM EST Gender Identity Female 07/22/2024 9:37 AM EST Sexual Orientation Straight 08/19/2024 9: 27 AM EST documented as of this encounter Plan of Treatment Upcoming Encounters Date Type Department Care Team (Late st Contact Info) Description 11/04/2024 10:[address] [facility] Infusion Center [address] [facility] 2nd [place] [phone] 12/11/2024 10:30 AM EDT Office Visit [facility] Hematology Oncology [address] [place] [phone] Fabián Suárez MD [address] [place] [phone] 03/06/2025 11:30 AM EDT Office Visit Pulmonolgy - [place] [address] [phone] Leisa Infante MD [address] [address] documented as of this encounter Procedures Procedure Name Priority Date/Time Associated Diagnosis Comments CREATININE, SERUM Routine 07/01/2024 9:5 2 AM EST Rheumatoid arthritis, unspecified (CMS/HCC) Other configuration release manager (current) drug therapy SEDIMENTATION RATE Routine 07/01/2024 9: 52 AM EST Rheumatoid arthritis, unspecified (CMS/HCC) Other long-term (current) drug therapy C-REACTIVE PROTEIN Routine 07/01/2024 9: 52 AM EST Rheumatoid arthritis, unspecified (CMS/HCC) Other configuration release manager (current) drug therapy ALANINE AMINOTRANSFERASE Routine 9:52 AM EST Rheumatoid arthritis, unspecified (CMS/HCC) Other configuration release manager (current) drug therapy ASPARTATE AMINOTRANSFERASE Routine 07/01/2024 9:52 AM EST Rheumatoid arthritis, unspecified (CMS/HCC) Other configuration release manager (current) drug therapy documented in this encounter Results * Creatinine (07/01/2024 9:52 AM EST) Creatinine 0.72 0.50 - 1.10 mg/dL LAB CHEMISTRY METHOD 07/01/2024 11:23 AM EST [facility] eGFR 92 >=60 mL/min/1. 73m2 LAB CHEMISTRY METHOD 07/01/2024 11:23 AM EST [facility] Comment:Calculation based on the??Chronic Kidney Disease Epidemiology Collaboration (CKD-EPI) equation refit??without adjustment for race. Blood Venous blood specimen / Unknown 07/01/2024 9:52 AM EST 07/01/2024 10:30 AM EST Jose Carlos Ponce MD LAB BLOOD ORDERABLES Padmini l Result Performing Organization Address City/[facility]/ZIP Co de Phone Number [facility] [address] [place] [address], [place] [phone] * Alanine aminotransferase (07/01/2024 9:52 AM EST) ALT (SGPT) 20 10 - 60 unit/L LAB CHEMISTRY METHOD 07/01/2024 11:23 AM EST [facility] Blood Venous blood specimen / Unknown 07/01/2024 9:52 AM EST 07/01/2024 10:30 AM EST Jose Carlos Ponce MD LAB BLOOD ORDERABLES Padmini l Result [facility] [address] [place] [address], [place] [phone] * Aspartate aminotransferase (07/01/2024 9:52 AM EST) AST (SGOT) 10 10 - 42 unit/L LAB CHEMISTRY METHOD 07/01/2024 11:23 AM EST [facility] Blood Venous blood specimen / Unknown 07/01/2024 9:52 AM EST 07/01/2024 10:30 AM EST us Jose Carlos Ponce MD LAB BLOOD ORDERABLES Padmini l Result Performing Organization Address [facility] Co de Phone Number [facility] [address] [place] [address], [place] [phone] * (ABNORMAL) Sedimentation rate (07/01/2024 9:52 AM EST) Sed Rate 70(H) 0 - 30 mm/hr LAB HEMETOLOGY METHOD 07/01/2024 11:03 AM EST [facility] Blood Venous blood specimen / Unknown 07/01/2024 9:52 AM EST 07/01/2024 10:30 AM EST Jose Carlos Ponce MD LAB BLOOD ORDERABLES Padmini l Result Performing Organization Address [facility] de Phone Number [facility] [address] [place] [address], [place] [phone] * (ABNORMAL) C-reactive protein (07/01/2024 9:52 AM EST) C-Reactive Protein 0.98(H) <=0.50 mg/dL LAB CHEMISTRY METHOD 07/01/2024 11:23 AM EST [facility] Blood Venous blood specimen / Unknown 07/01/2024 9:52 AM EST 07/01/2024 10:30 AM EST Jose Carlos Ponce MD LAB BLOOD ORDERABLES Padmini l Result Performing Organization Address [facility] Co de Phone Number [facility] [address] [place] [address], [place] [phone] documented in this encounter Visit Diagnoses Diagnosis Rheumatoid arthritis, unspecified (CMS/HCC V24, CMS/HCC V28) Other long-term (current) drug therapy documented in this encounter Care Teams Agency Director Relationship Specialty Start Date End Date Farrah Felder MD [address] [place] [phone] PCP - General Internal Medicine 05/13/24 documented as of this encounter
--- OUTSIDE RECORDS SUMMARY | 2024-10-30 10:44 | XMS_ITS | Encounter Summary ---
Author Organization [facility] Address [address] [place] [address] Care Team Providers Care Concert Manager Name Role Phone Shama Shafer MD Primary Care Provider [phone] Farrah Felder MD Primary Care Provider [phone] Angelina Holman PA-C Unavailable [phone] Reason for Visit * Reason Onset Date Comments refill request 03/27/2017 Encounter Details Date Type Department Care Team Description 03/27/2017 Refill OBGYN - [address] [address] Polo La MD refill request Social History Tobacco Use Types Packs/Day Years [...] encounter Miscellaneous Notes * Telephone Encounter - Rhina Gregg - 03/27/2017 8:39 AM EDT WHEN WAS THE PATIENTS LAST ANNUAL POOL TECHNICIAN EXAM? 03-18-16 Does patient have an upcoming appointment? Yes 04-28-17 (THE MEDICATION REQUESTED IS ON THE MED LIST ABOVE) Did you check the Pharmacy information above?: YES Indicate how soon the patient needs the script: BY THE END OF THE DAY Patient would like script to be: E-PRESCRIBED/FAXED TO PHARMACY Is the doctor here today?: NO Can the message wait until the doctor returns?: NO Has the patient been told that the prescription will not be filled until the end of the day? NO Payor: [place]/[employer]AMIE POS / Plan: FEP STANDARD $25 / Product Type: PPO [id number]-[id number] documented in this encounter Plan of Treatment Not on file documented as of this encounter Visit Diagnoses Not on filedocumented in this encounter Care Teams Concert Manager Relationship Specialty Start Date End Date Shama Shafer MD [address] [place] [address] PCP - General Internal Medicine 04/29/11 12/02/21 Farrah Felder MD [address] [place] [address] PCP - General Internal Medicine 12/03/21 Angelina Holman PA-C [address] [place] [phone] Thoracic Surgery 09/04/23 documented as of this encounter
--- OUTSIDE RECORDS SUMMARY | 2024-10-30 10:44 | XMS_ITS | Encounter Summary ---
Author Organization [facility] Address [address] [facility] [place] [address] Care Team Providers Care Oil Field Pumper Name Role Phone Farrah Felder MD Primary Care Provider [phone] Angelina Holman PA-C Unavailable [phone] Encounter Details Date Type Department Care Team Description 08/15/2023 Shirt Creaser Report Medical Records [address] [place] [address] Jose Carlos Ponce MD Social History Tobacco Use Types Packs/Day [...] filedocumented in this encounter Care Teams Oil Field Pumper Relationship Specialty Start Date End Date Farrah Felder MD PCP - General Internal Medicine 12/03/21 Angelina Holman PA-C [address] [place] [phone] Thoracic Surgery 09/04/23 documented as of this encounter
--- OUTSIDE RECORDS SUMMARY | 2024-10-30 10:44 | XMS_ITS | Encounter Summary ---
Author Organization [facility] Address [address] [place] [address] Care Team Providers Care Toolroom Attendant Name Role Phone Jailene Tapia MD Primary Care Provider [phone] Shama Shafer MD Primary Care Provider [phone] Farrah Felder MD Primary Care Provider [phone] Angelina Holman PA-C Unavailable [phone] Encounter Details Date Type Department Care Team Description 09/11/2009 [facility] Medical Records [address] [place] [address] Nico Alcala MD Social History Tobacco Use Types Packs/Day Years Used Date Smoking Tobacco: Former Cigarettes 0.5 31 Q uit: 08/23/2013 Passive Smoke Exposure: Past Smokeless Tobacco: Never Comments:Started @ age 16- 4 days w/out cig on 09/24//: Former smoker. Started @ age 13, Spoked [...] on filedocumented in this encounter Care Teams Toolroom Attendant Relationship Specialty Start Date End Date Jailene Tapia MD [address] [place] [address] PCP - General 07/21/08 04/28/11 Shama Shafer MD [address] [place] [address] PCP - General Internal Medicine 04/29/11 12/02/21 Farrah Felder MD [address] [place] [address] PCP - General Internal Medicine 12/03/21 Angelina Holman PA-C [address] [place] [phone] Thoracic Surgery 09/04/23 documented as of this encounter
--- OUTSIDE RECORDS SUMMARY | 2024-10-30 10:44 | XMS_ITS | Encounter Summary ---
Author Organization [facility] Address [address] [place] [address] Care Team Providers Care Product Trainer Name Role Phone Shama Shafer MD Primary Care Provider [phone] Farrah Felder MD Primary Care Provider Angelina Holman PA-C Unavailable [phone] Encounter Details Date Type Department Care Team Description 01/01/2018 Telephone Pulmonology - [place] [address] [facility] [address] [place] [address] Benjamín Doan MD 175 [facility] [address] [place] [address] Social History Tobacco Use Types Packs/Day Years Used Date Smoking Tobacco: Former Cigarettes 0.5 31 Q uit: 09/24/2012 Smokeless Tobacco: Never Comments:Started [...] encounter Miscellaneous Notes * Telephone Encounter - Armindanancy Kan - 01/01/2018 8:57 AM EDT errror ? documented in this encounter Plan of Treatment Not on file documented as of this encounter Visit Diagnoses Not on filedocumented in this encounter Care Teams Product Trainer Relationship Specialty Start Date End Date Shama Shafer MD [address] [place] [address] PCP - General Internal Medicine 04/29/11 12/02/21 Farrah Felder MD [address] [place] [address] PCP - General Internal Medicine 12/03/21 Angelina Holman PA-C [address] [place] [phone] Thoracic Surgery 09/04/23 documented as of this encounter
--- OUTSIDE RECORDS SUMMARY | 2024-10-30 10:44 | XMS_ITS | Encounter Summary ---
Author Organization [facility] Address [address] [place] [address] Care Team Providers Care Dredgemaster Name Role Phone Farrah Felder MD Primary Care Provider [phone] Angelina Holman PA-C Unavailable [phone] Reason for Visit * Reason Onset Date Comments Follow-up 02/07/2023 Medication quest ion Encounter Details Date Type Department Care Team Description 02/07/2023 Telephone Pulmonology - [place] [address] [address] Leisa Infante MD [address] [address] Follow-up (Medication question) Social History Tobacco Use Types Packs/Day Years [...] suspected to have Coronavirus/COVID-19? No / Unsure 01/31/2023 11:09 AM EDT documented as of this encounter Miscellaneous Notes * Telephone Encounter - Nadia Muir - 02/07/2023 2:45 PM EDT Pt received medication Ipratropium nebulizer solution and yet stated that the provider never mentioned it on her office visit. She is confused on this and would like a call back. Please call the patient at [phone] documented in this encounter Plan of Treatment Not on file documented as of this encounter Visit Diagnoses Not on filedocumented in this encounter Care Teams Dredgemaster Relationship Specialty Start Date End Date Farrah Felder MD PCP - General Internal Medicine 12/03/21 Angelina Holman PA-C [address] [place] [phone] Thoracic Surgery 09/04/23 documented as of this encounter
--- OUTSIDE RECORDS SUMMARY | 2024-10-30 10:44 | XMS_ITS | Encounter Summary ---
Author Organization [facility] Address [address] [place] [address] Care Team Providers Care Loans Officer Name Role Phone Shama Shafer MD Primary Care Provider [phone] Farrah Felder MD Primary Care Provider [phone] Angelina Holman PA-C Unavailable [phone] Reason for Visit * Reason Onset Date Comments REFERRAL 11/28/2017 Encounter Details Date Type Department Care Team Description 11/28/2017 Telephone Allergy - [address] [address] Beatriz Garcia MD REFERRAL Social History Tobacco Use Types Packs/Day Years [...] encounter Miscellaneous Notes * Telephone Encounter - Lyric Germain - 11/28/2017 11:32 AM EDT Sorry I meant to add Made Multiple attempts to reach patient by phone and sent letter as well with no response- will remove patient from referral report * Telephone Encounter - Shama Shafer MD - 11/28/2017 10:49 AM EDT Isn't the referral supposed to be placed then the request sent to me? * Telephone Encounter - Lyric Germain - 11/28/2017 10:19 AM EDT I will request a referral to allergy. Reason for referral: allergic rhinitis Priority: Routine - schedule for next available appointment; Priority - visit within 4-6 weeks; Urgent - visit within a week; Emergency - visit today or tomorrow. Not third-green party related documented in this encounter Plan of Treatment Not on file documented as of this encounter Visit Diagnoses Not on filedocumented in this encounter Care Teams Loans Officer Relationship Specialty Start Date End Date Shama Shafer MD [address] [place] [address] PCP - General Internal Medicine 04/29/11 12/02/21 Farrah Felder MD [address] [place] [address] PCP - General Internal Medicine 12/03/21 Angelina Holman PA-C [address] [place] [phone] Thoracic Surgery 09/04/23 documented as of this encounter
--- OUTSIDE RECORDS SUMMARY | 2024-10-30 10:44 | XMS_ITS | Encounter Summary ---
Author Organization [facility] Address [address] [place] [address] Care Team Providers Care Warehouse Lead Name Role Phone Farrah Felder MD Primary Care Provider [phone] Angelina Holman PA-C Unavailable [phone] Reason for Visit * Reason Onset Date Comments DME Request 05/31/2023 Encounter Details Date Type Department Care Team Description 05/31/2023 Telephone Pulmonology - [place] [address] [address] Leisa Infante MD [address] [phone] DME Request Social History Tobacco Use Types Packs/Day Years [...] encounter Miscellaneous Notes * Telephone Encounter - Salome Ramos M.A. - 05/31/2023 9:15 AM EST CPAP order faxed to [facility]. documented in this encounter Plan of Treatment Not on file documented as of this encounter Visit Diagnoses Not on filedocumented in this encounter Care Teams Warehouse Lead Relationship Specialty Start Date End Date Farrah Felder MD PCP - General Internal Medicine 12/03/21 Angelina Holman PA-C [address] [place] [phone] Thoracic Surgery 09/04/23 documented as of this encounter
--- OUTSIDE RECORDS SUMMARY | 2024-10-30 10:44 | XMS_ITS | Encounter Summary ---
Author Organization [facility] Address [address] [facility] [address] Care Team Providers Care Grocery Clerk Name Role Phone Shama Shafer MD Primary Care Provider [phone] Farrah Felder MD Primary Care Provider [phone] Angelina Holman PA-C Unavailable [phone] Encounter Details Date Type Department Care Team Description 07/24/2017 [facility] Medical Records [address] [place] [address] Abstract, Provider Social History Tobacco Use Types [...] on filedocumented in this encounter Care Teams Grocery Clerk Relationship Specialty Start Date End Date Shama Shafer MD [address] [place] [address] PCP - General Internal Medicine 04/29/11 12/02/21 Farrah Felder MD [address] [place] [address] PCP - General Internal Medicine 12/03/21 Angelina Holman PA-C [address] [place] [phone] Thoracic Surgery 09/04/23 documented as of this encounter
--- OUTSIDE RECORDS SUMMARY | 2024-10-30 10:44 | XMS_ITS | Encounter Summary ---
Author Organization [facility] [place] [address] Care Team Providers Care Brand Manager Name Role Phone Farrah Felder MD Primary Care Provider [phone] Encounter Details Date Type Department Care Team (Late st Contact Info) Description 04/22/2024 9:15 AM EDT Hospital Encounter TH HISTORIC ENCOUNTERS [...] care for your loved ones. For example, early childhood lead teacher or elderly care for an older [...] Oxygen Concentration - - Weight 129 kg (285 lb 4.4 oz) 04/15/2024 9:17 AM EDT Height 162.6 cm (5' 4 ) 02/28/2024 9:28 AM EDT Body Mass Index 48.94 03/28/2024 3:56 PM EDT documented in this encounter Progress Notes * Historical, Notes Results - 04/22/2024 9:30 AM EDT Pt arrived amb for NPlate. CBC-d drawn via butterfly and sent STAT. Pt denies bleeding or bruising.Stable assessment. 1036 Labs resulted, Plt 87 today, will proceed with NPlate as ordered. 1125 NPlate administered sub Q into LEFT upper arm, well tolerated. Calendar of next appts provided, pt sees Dr. Bobby prior to next treatment, she will get labs drawn downstairs prior to seeing MD and ask them to send STAT. Pt left amb, stable at D/C. documented in this encounter Plan of Treatment Upcoming Encounters Date Type Department Care Team (Late st Contact Info) Description 11/04/2024 10:00 AM EDT Appointment [facility] [address] [address] 12/11/2024 10:30 AM EDT Office Visit [facility] Hematology Oncology [address] [place] [address] Michelle-Fabián Bobby MD 271 [place] [address] 03/06/2025 11:30 AM EDT Office Visit Pulmonolgy - [place] [address] [phone] Leisa Infante MD [address] [address] documented as of this encounter Visit Diagnoses Not on filedocumented in this encounter Care Teams Brand Manager Relationship Specialty Start Date End Date Farrah Felder MD PCP - General Internal Medicine 12/03/21 05/12/24 documented as of this encounter
--- OUTSIDE RECORDS SUMMARY | 2024-10-30 10:44 | XMS_ITS | Encounter Summary ---
Author Organization [facility] Address [address] [facility] [place] [address] Care Team Providers Care Straddle Truck Driver Name Role Phone Shama Shafer MD Primary Care Provider [phone] Farrah Felder MD Primary Care Provider [phone] Angelina Holman PA-C Unavailable [phone] Encounter Details Date Type Department Care Team Description 07/26/2016 Service Representative Report Medical Records [address] [place] [id number] Suma Cohen MD Social History Tobacco Use Types Packs/Day [...] on filedocumented in this encounter Care Teams Straddle Truck Driver Relationship Specialty Start Date End Date Shama Shafer MD [address] [place] [address] PCP - General Internal Medicine 04/29/11 12/02/21 Farrah Felder MD 444 [place] [address] PCP - General Internal Medicine 12/03/21 Angelina Holman PA-C [address] [place] [phone] Thoracic Surgery 09/04/23 documented as of this encounter
--- OUTSIDE RECORDS SUMMARY | 2024-10-30 10:44 | XMS_ITS | Encounter Summary ---
Author Organization [facility] Address [address] [place] [address] Care Team Providers Care Medical Officer Name Role Phone Shama Shafer MD Primary Care Provider [phone] Farrah Felder MD Primary Care Provider [phone] Angelina Holman PA-C Unavailable [phone] Reason for Visit * Reason Onset Date Comments hospital follow up 12/07/2017 Encounter Details Date Type Department Care Team Description 12/07/2017 Telephone Adult Medicine [address] [id number] Shama Shafer MD [address] [place] [phone] hospital follow up Social History Tobacco Use Types Packs/Day Years [...] encounter Miscellaneous Notes * Telephone Encounter - Maninder Montes MD - 12/15/2017 12:38 PM EDT Has appointment 6/11 with me. * Telephone Encounter - Melina Lemus R.N. - 12/15/2017 10:34 AM EDT Pt has new dx of breast mass- had hosp f/u 12/[address] Shafer she cx as needed to be seensooner. Is this time acceptable to you? May I keep appt with you? * Telephone Encounter - Shama Shafer MD - 12/15/2017 10:17 AM EDT I am out of the office and not returning until 12/25 - this is the earliest appt I can offer * Telephone Encounter - Luly Dyer - 12/15/2017 8:57 AM EDT Patient is returning phone call, asked to call [phone] * Telephone Encounter - Dayday Hayes R.N - 12/14/2017 4:44 PM EDT [phone] (home) Pt called left voice message to return call. * Telephone Encounter - Milagros Breaux - 12/14/2017 4:33 PM EDT Patient called, stated that Dr. Dodson told her that this Hospital follow up appointment sooner because she has a 1.6cm brown mass on her left breast * Telephone Encounter - Dayday Hayes R.N - 12/07/2017 11:47 AM EDT Called jeni left message to return call. Hosp fu changed to dr yoel de [facility]una hosp fu appt 12/25/17 at 1030! Pleaser verify appt * Telephone Encounter - Emily Mackay - 12/07/2017 9:47 AM EDT Pt is stating that she does not to see a doctor that she does not know and wants another appt * Telephone Encounter - Melina Lemus R.N. - 12/07/2017 9:16 AM EDT Hosp f/u appt on 12/13 at 10:[address]- Ngo at [facility] notified at [phone]. Left reminder message on pts ans. Machine. * Telephone Encounter - Shivani Parks - 12/07/2017 8:50 AM EDT Hospital follow up appointment needed Hospital patient was treated at: [facility] Was this only an ER visit or was the patient admitted to the hospital? Admitted to hospital Date of visit if ER visit only: [id number] If patient was admitted what was the date of discharge? [id number] Reason/diagnosis for visit or stay: COPD When was the patient told to follow up? 7 days (contact Jeni) Was visit or stay related to an injury? NO If yes, what was the date of injury (DOI)? N/A If yes, was the injury due to N/A documented in this encounter Plan of Treatment Not on file documented as of this encounter Visit Diagnoses Not on filedocumented in this encounter Care Teams Medical Officer Relationship Specialty Start Date End Date Shama Shafer MD [address] [place] [address] PCP - General Internal Medicine 04/29/11 12/02/21 Farrah Felder MD 444 [place] [address] PCP - General Internal Medicine 12/03/21 Angelina Holman PA-C [address] [place] [phone] Thoracic Surgery 09/04/23 documented as of this encounter
--- OUTSIDE RECORDS SUMMARY | 2024-10-30 10:44 | XMS_ITS | Encounter Summary ---
Author Organization [facility] Address [address] [place] [address] Care Team Providers Care Grass Farmer Name Role Phone Farrah Felder MD Primary Care Provider [phone] Angelina Holman PA-C Unavailable [phone] Encounter Details Date Type Department Care Team Description 08/28/2023 Pt. Non Urgent Medical Question Internal Medicine - [place] 175 [facility], [address] [place] [address] Farrah Felder MD [address] [place] [phone] Social History Tobacco Use Types Packs/Day [...] on filedocumented in this encounter Care Teams Grass Farmer Relationship Specialty Start Date End Date Farrah Felder MD PCP - General Internal Medicine 12/03/21 Angelina Holman PA-C [address] [place] [phone] Thoracic Surgery 09/04/23 documented as of this encounter
--- OUTSIDE RECORDS SUMMARY | 2024-10-30 10:44 | XMS_ITS | Encounter Summary ---
Author Organization [facility] Address [address] [place] [address] Care Team Providers Care Supervisor Smoke Control Name Role Phone Farrah Felder MD Primary Care Provider [phone] Angelina Holman PA-C Unavailable [phone] Encounter Details Date Type Department Care Team Description 07/24/2023 Pt. Non Urgent Medical Question Internal Medicine - [place] 175 [facility], [address] [place] [address] Farrah Felder MD [address] [place] [phone] Social History Tobacco Use Types Packs/Day [...] on filedocumented in this encounter Care Teams Supervisor Smoke Control Relationship Specialty Start Date End Date Farrah Felder MD PCP - General Internal Medicine 12/03/21 Angelina Holman PA-C [address] [place] [phone] Thoracic Surgery 09/04/23 documented as of this encounter
--- OUTSIDE RECORDS SUMMARY | 2024-10-30 10:44 | XMS_ITS | Encounter Summary ---
Author Organization [facility] Address [address] [place] [address] Care Team Providers Care Horticultural Farmworker Name Role Phone Farrah Felder MD Primary Care Provider [phone] Angelina Holman PA-C Unavailable [phone] Encounter Details Date Type Department Care Team Description 05/24/2023 Refill Pulmonology - [place] [address] [phone] Leisa Infante MD [address] [place] [phone] Social History Tobacco Use Types Packs/Day [...] encounter Miscellaneous Notes * Telephone Encounter - Mireya Ladd - 05/26/2023 9:36 AM EST Patient is out of medication. Duplicate Mychart Request. * Telephone Encounter - Fnany Samuel - 05/25/2023 10:52 AM EST CARLOS 01/25/23 NOV 05/30/23 documented in this encounter Plan of Treatment Not on file documented as of this encounter Visit Diagnoses Diagnosis Chronic obstructive pulmonary disease, unspecified COPD type (HCC) documented in this encounter Care Teams Horticultural Farmworker Relationship Specialty Start Date End Date Farrah Felder MD PCP - General Internal Medicine 12/03/21 Angelina Holman PA-C [address] [place] [phone] Thoracic Surgery 09/04/23 documented as of this encounter
--- OUTSIDE RECORDS SUMMARY | 2024-10-30 10:44 | XMS_ITS | Encounter Summary ---
Author Organization [facility] Address [address] [facility] [place] [address] Care Team Providers Care Auditor Internal Name Role Phone Farrah Felder MD Primary Care Provider [phone] Angelina Holman PA-C Unavailable [phone] Encounter Details Date Type Department Care Team Description 03/09/2023 Orders Only Medical Records [address] [place] [address] Abstract, Provider Social History Tobacco Use Types [...] suspected to have Coronavirus/COVID-19? No / Unsure 03/10/2023 9:26 AM EDT documented as of this encounter Plan of Treatment Not on file documented as of this encounter Procedures Procedure Name Priority Date/Time Associated Diagnosis Comments OUTSIDE LAB Routine 03/08/2023 OUTSIDE LAB Routine 02/24/2023 OUTSIDE LAB Routine 02/24/2023 documented in this encounter Results * OUTSIDE LAB (03/08/2023) Provider Abstract LAB * OUTSIDE LAB (02/24/2023) Provider Abstract LAB * OUTSIDE LAB (02/24/2023) Provider Abstract LAB documented in this encounter Visit Diagnoses Not on filedocumented in this encounter Care Teams Auditor Internal Relationship Specialty Start Date End Date Farrah Felder MD PCP - General Internal Medicine 12/03/21 Angelina Holman PA-C [address] [place] [phone] Thoracic Surgery 09/04/23 documented as of this encounter
--- OUTSIDE RECORDS SUMMARY | 2024-10-30 10:44 | XMS_ITS | Encounter Summary ---
Author Organization [facility] Address [address] [place] [address] Care Team Providers Care Occupational Health Nurse Name Role Phone Farrah Felder MD Primary Care Provider [phone] Angelina Holman PA-C Unavailable [phone] Encounter Details Date Type Department Care Team Description 11/07/2023 Pt. Non Urgent Medical Question Internal Medicine - [address] [place] [address], [address] [place], [place] [phone] Farrah Felder MD [address] [place] [phone] Social History Tobacco Use Types Packs/Day [...] on filedocumented in this encounter Care Teams Occupational Health Nurse Relationship Specialty Start Date End Date Farrah Felder MD PCP - General Internal Medicine 12/03/21 Angelina Holman PA-C [address] [place] [phone] Thoracic Surgery 09/04/23 documented as of this encounter
--- OUTSIDE RECORDS SUMMARY | 2024-10-30 10:44 | XMS_ITS | Encounter Summary ---
Author Organization [facility] Address [address] [place] [address] Care Team Providers Care Horizontal Boring Mill Set Up Operator Name Role Phone Farrah Felder MD Primary Care Provider [phone] Angelina Holman PA-C Unavailable [phone] Reason for Visit * Reason Onset Date Comments Analysis Or Research Safety Inspector Feedback 02/21/2023 Encounter Details Date Type Department Care Team Description 02/21/2023 Telephone Pulmonology - [place] [address] [phone] Leisa Infante MD [address] [phone] Analysis Or Research Safety Inspector Feedback Social History Tobacco Use Types Packs/Day Years [...] on filedocumented in this encounter Care Teams Horizontal Boring Mill Set Up Operator Relationship Specialty Start Date End Date Farrah Felder MD PCP - General Internal Medicine 12/03/21 Angelina Holman PA-C [address] [place] [phone] Thoracic Surgery 09/04/23 documented as of this encounter
--- OUTSIDE RECORDS SUMMARY | 2024-10-30 10:44 | XMS_ITS | Encounter Summary ---
Author Organization [facility] Address [address] [place] [address] Care Team Providers Care Operations Label Clerk Name Role Phone Farrah Felder MD Primary Care Provider [phone] Angelina Holman PA-C Unavailable [phone] Encounter Details Date Type Department Care Team Description 09/04/2023 Fireworks Maker Report Medical Records [address] [place] [address] [facility] [address] [place] [address] Social History Tobacco Use Types Packs/Day Years [...] on filedocumented in this encounter Care Teams Operations Label Clerk Relationship Specialty Start Date End Date Farrah Felder MD PCP - General Internal Medicine 12/03/21 Angelina Holman PA-C [address] [phone] Thoracic Surgery 09/04/23 documented as of this encounter
--- OUTSIDE RECORDS SUMMARY | 2024-10-30 10:44 | XMS_ITS | Encounter Summary ---
Author Organization [facility] Address [address] [place] [address] Care Team Providers Care Dragline Oiler Name Role Phone Farrah Felder MD Primary Care Provider [phone] Angelina Holman PA-C Unavailable [phone] Encounter Details Date Type Department Care Team Description 07/26/2023 Pt. Non Urgent Medical Question Internal Medicine - [place] 175 [facility], [address] [place] [address] Farrah Felder MD [address] [place] [phone] Social History Tobacco Use Types Packs/Day [...] on filedocumented in this encounter Care Teams Dragline Oiler Relationship Specialty Start Date End Date Farrah Felder MD PCP - General Internal Medicine 12/03/21 Angelina Holman PA-C [address] [place] [phone] Thoracic Surgery 09/04/23 documented as of this encounter
--- OUTSIDE RECORDS SUMMARY | 2024-10-30 10:44 | XMS_ITS | Encounter Summary ---
Author Organization [facility] Address [address] [facility] [place] [address] Care Team Providers Care Weld Lay Out Worker Name Role Phone Farrah Felder MD Primary Care Provider [phone] Angelina Holman PA-C Unavailable [phone] Encounter Details Date Type Department Care Team Description 02/01/2023 Telephone Pulmonology - [place] [address] [phone] Leisa Infante MD [address] [phone] Social History Tobacco Use Types Packs/Day [...] on filedocumented in this encounter Care Teams Weld Lay Out Worker Relationship Specialty Start Date End Date Farrah Felder MD PCP - General Internal Medicine 12/03/21 Angelina Holman PA-C [address] [place] [phone] Thoracic Surgery 09/04/23 documented as of this encounter
--- OUTSIDE RECORDS SUMMARY | 2024-10-30 10:44 | XMS_ITS | Encounter Summary ---
Author Organization [facility] Address [address] [place] [address] Care Team Providers Care Lap Maker Name Role Phone Farrah Felder MD Primary Care Provider [phone] Angelina Holman PA-C Unavailable [phone] Encounter Details Date Type Department Care Team Description 08/08/2023 Pt. Non Urgent Medical Question Internal Medicine - [place] 175 [facility], [address] [place] [address] Farrah Felder MD [address] [place] [phone] Social History Tobacco Use Types Packs/Day [...] on filedocumented in this encounter Care Teams Lap Maker Relationship Specialty Start Date End Date Farrah Felder MD PCP - General Internal Medicine 12/03/21 Angelina Holman PA-C [address] [place] [phone] Thoracic Surgery 09/04/23 documented as of this encounter
--- OUTSIDE RECORDS SUMMARY | 2024-10-30 10:44 | XMS_ITS | Encounter Summary ---
Author Organization [facility] Address [address] [place] [address] Care Team Providers Care Industrial Cleaning Technician Name Role Phone Farrah Felder MD Primary Care Provider [phone] Angelina Holman PA-C Unavailable [phone] Encounter Details Date Type Department Care Team Description 11/07/2023 Pt. Non Urgent Medical Question Internal Medicine - [address], [address] [place], [place] [phone] Farrah Felder MD [address] [place] [phone] Social History Tobacco Use Types Packs/Day [...] on filedocumented in this encounter Care Teams Industrial Cleaning Technician Relationship Specialty Start Date End Date Farrah Felder MD PCP - General Internal Medicine 12/03/21 Angelina Holman PA-C [address] [place] [phone] Thoracic Surgery 09/04/23 documented as of this encounter
--- OUTSIDE RECORDS SUMMARY | 2024-10-30 10:44 | XMS_ITS | Encounter Summary ---
Author Organization [facility] [place] [address] Care Team Providers Care Battalion Fire Chief Name Role Phone Farrah Felder MD Primary Care Provider [phone] Encounter Details Date Type Department Care Team (Late st Contact Info) Description 05/06/2024 9:09 AM EDT Hospital Encounter TH HISTORIC [...] your loved ones. For example, child care center administrator or elderly care for an older adult? [...] - - Weight 129 kg (285 lb 0.9 oz) 04/30/2024 9:18 AM EDT Height 162.6 cm (5' 4 ) 02/28/2024 9:28 AM EDT Body Mass Index 48.91 03/28/2024 3:56 PM EDT documented in this encounter Progress Notes * Historical, Notes Results - 05/06/2024 9:30 AM EDT Patient arrives ambulatory for nplate. She denies any bleeding. Patient states she is feeling well.Patient concerned about drop in plt count. Offered listening and support. Patient asking to speak with dr. Bobby, informed her he was out on family emergency. Patients labs drawn per order from left ac and sent stat. Patients plt count 55. Patient upset stating why even get the shot we talked in detail and explained the parameters are to increase the dose when plts are below 50. Patient doesn't feel the nplateis helping her and states maybe I need to be back on prednisone Patient again aware MD is out and wants the shot today and states next week she will make a decisions based on her plt count. * Historical, Notes Results - 05/06/2024 9:30 AM EDT Patient given nplate in left upper arm. Next appt booked for next week after md visit. Patient left stable and ambulatory, instructed to call with any questions or concerns. documented in this encounter Plan of Treatment Upcoming Encounters Date Type Department Care Team (Late st Contact Info) Description 11/04/2024 10:00 AM EDT Appointment [facility] Infusion Center 271 [facility] 2nd [place] [address] 12/11/2024 10:30 AM EDT Office Visit [facility] Hematology Oncology [address] [place] [address] Fabián Suárez MD 271 [place] [phone] 03/06/2025 11:30 AM EDT [facility] 175 [facility] 200 [place] [address] Leisa Infante MD 175 [facility] [address] [place] [address] documented as of this encounter Visit Diagnoses Not on filedocumented in this encounter Care Teams Battalion Fire Chief Relationship Specialty Start Date End Date Farrah Felder MD PCP - General Internal Medicine 12/03/21 05/12/24 documented as of this encounter
--- OUTSIDE RECORDS SUMMARY | 2024-10-30 10:44 | XMS_ITS | Encounter Summary ---
Author Organization [facility] Address [address] [place] [address] Care Team Providers Care Forest Fire Management Officer Name Role Phone Farrah Felder MD Primary Care Provider [phone] Angelina Holman PA-C Unavailable [phone] Encounter Details Date Type Department Care Team Description 08/03/2023 Pt. Non Urgent Medical Question Internal Medicine - [place] 175 [facility], [address] [place] [address] Farrah Felder MD [address] [place] [phone] Social History Tobacco Use Types Packs/Day [...] on filedocumented in this encounter Care Teams Forest Fire Management Officer Relationship Specialty Start Date End Date Farrah Felder MD PCP - General Internal Medicine 12/03/21 Angelina Holman PA-C [address] [place] [phone] Thoracic Surgery 09/04/23 documented as of this encounter
--- OUTSIDE RECORDS SUMMARY | 2024-10-30 10:44 | XMS_ITS | Encounter Summary ---
Author Organization [facility] Address [address] [facility] [place] [address] Care Team Providers Care Grazing Aide Name Role Phone Farrah Felder MD Primary Care Provider [phone] Angelina Holman PA-C Unavailable [phone] Encounter Details Date Type Department Care Team Description 09/20/2023 Heating And Ventilating Drafter Report Medical Records [address] [place] [address] Jose Carlos Ponce MD Social History Tobacco [...] on filedocumented in this encounter Care Teams Grazing Aide Relationship Specialty Start Date End Date Farrah Felder MD PCP - General Internal Medicine 12/03/21 Angelina Holman PA-C [address] [place] [phone] Thoracic Surgery 09/04/23 documented as of this encounter
--- OUTSIDE RECORDS SUMMARY | 2024-10-30 10:44 | XMS_ITS | Encounter Summary ---
Author Organization [facility] Address [address] [facility] [place] [address] Care Team Providers Care Bilingual Sales Consultant Name Role Phone Shama Shafer MD Primary Care Provider [phone] Farrah Felder MD Primary Care Provider [phone] Angelina Holman PA-C Unavailable [phone] Encounter Details Date Type Department Care Team Description 01/25/2018 Release of Information Medical Records [address] [place] [address] Abstract, Provider Social History Tobacco Use Types [...] on filedocumented in this encounter Care Teams Bilingual Sales Consultant Relationship Specialty Start Date End Date Shama Shafer MD [address] [place] [address] PCP - General Internal Medicine 04/29/11 12/02/21 Farrah Felder MD [address] [place] [address] [place] [address] PCP - General Internal Medicine 12/03/21 Angelina Holman PA-C [address] [place] [phone] Thoracic Surgery 09/04/23 documented as of this encounter
--- OUTSIDE RECORDS SUMMARY | 2024-10-30 10:44 | XMS_ITS | Encounter Summary ---
Author Organization Formerly [facility] Address [address] [facility] [place] [address] Care Team Providers Care Process Improvement Consultant Name Role Phone Farrah Felder MD Primary Care Provider [phone] Angelina Holman PA-C Unavailable [phone] Encounter Details Date Type Department Care Team Description 05/04/2023 Orders Only Medical Records [address] [place] [address] Fabián Suárez MD Social History Tobacco Use [...] Date/Time Associated Diagnosis Comments OUTSIDE LAB Routine 05/01/2023 documented in this encounter Results * OUTSIDE LAB (05/01/2023) Fabián Suárez MD LAB documented in this encounter Visit Diagnoses Not on filedocumented in this encounter Care Teams Process Improvement Consultant Relationship Specialty Start Date End Date Farrah Felder MD PCP - General Internal Medicine 12/03/21 Angelina Holman PA-C [address] [place] [phone] Thoracic Surgery 09/04/23 documented as of this encounter
--- OUTSIDE RECORDS SUMMARY | 2024-10-30 10:44 | XMS_ITS | Encounter Summary ---
Author Organization [facility] Address [address] [facility] [place] [address] Care Team Providers Care Loan Documents Closer Name Role Phone Farrah Felder MD Primary Care Provider [phone] Angelina Holman PA-C Unavailable [phone] Encounter Details Date Type Department Care Team Description 09/13/2023 Orders Only Medical Records 4 [place] [address] Fabián Suárez MD Social History Tobacco Use [...] Date/Time Associated Diagnosis Comments OUTSIDE LAB Routine 09/12/2023 documented in this encounter Results * OUTSIDE LAB (09/12/2023) Subramony DanaeKanu [facility] documented in this encounter Visit Diagnoses Not on filedocumented in this encounter Care Teams Loan Documents Closer Relationship Specialty Start Date End Date Farrah Felder MD PCP - General Internal Medicine 12/03/21 Angelina Holman PA-C [address] [phone] Thoracic Surgery 09/04/23 documented as of this encounter
--- OUTSIDE RECORDS SUMMARY | 2024-10-30 10:44 | XMS_ITS | Encounter Summary ---
Author Organization [facility] Address [address] [facility] [place] [address] Care Team Providers Care Baggage And Mail Agent Name Role Phone Farrah Felder MD Primary Care Provider [phone] Angelina Holman PA-C Unavailable [phone] Encounter Details Date Type Department Care Team Description 03/27/2023 Orders Only Medical Records 4 [place] [address] Abstract, Provider Social History Tobacco Use Types [...] Date/Time Associated Diagnosis Comments OUTSIDE LAB Routine 03/24/2023 documented in this encounter Results * OUTSIDE LAB (03/24/2023) Subramony Subramonia-Kanu [facility] documented in this encounter Visit Diagnoses Not on filedocumented in this encounter Care Teams Baggage And Mail Agent Relationship Specialty Start Date End Date Farrah Felder MD PCP - General Internal Medicine 12/03/21 Angelina Holman PA-C [address] [place] [phone] Thoracic Surgery 09/04/23 documented as of this encounter
--- OUTSIDE RECORDS SUMMARY | 2024-10-30 10:44 | XMS_ITS | Encounter Summary ---
Author Organization [facility] Address [address] [place] [address] Care Team Providers Care Leave Specialist Name Role Phone Farrah Felder MD Primary Care Provider [phone] Angelina Holman PA-C Unavailable [phone] Encounter Details Date Type Department Care Team Description 11/27/2023 Pt. Non Urgent Medical Question Internal Medicine - [address], [address] [place], [place] [phone] Farrah Felder MD [address] [place] [phone] Social History Tobacco Use Types Packs/Day [...] on filedocumented in this encounter Care Teams Leave Specialist Relationship Specialty Start Date End Date Farrah Felder MD PCP - General Internal Medicine 12/03/21 Angelina Holman PA-C [address] [place] [phone] Thoracic Surgery 09/04/23 documented as of this encounter
--- OUTSIDE RECORDS SUMMARY | 2024-10-30 10:44 | XMS_ITS | Encounter Summary ---
Author Organization [facility] Address [address] [place] [address] Care Team Providers Care Mechanical Artist Name Role Phone Farrah Felder MD Primary Care Provider [phone] Angelina Holman PA-C Unavailable [phone] Reason for Visit * Reason Onset Date Comments Faxed Refill 02/01/2023 Encounter Details Date Type Department Care Team Description 02/01/2023 Refill Internal Medicine - [address], [address] [place], [place] [phone] Farrah Felder MD [address] [place] [phone] Faxed Refill Social History Tobacco Use Types Packs/Day Years [...] encounter Miscellaneous Notes * Telephone Encounter - Bianca Jarrett - 02/01/2023 12:47 PM EDT Pended to pcp * Telephone Encounter - Patricia Page - 02/01/2023 10:54 AM EDT Pharmacy requesting: ibuprofen (ADVIL,MOTRIN) 600 MG tablet CARLOS 01/18/23 NOV 03/10/23 documented in this encounter Plan of Treatment Not on file documented as of this encounter Visit Diagnoses Not on filedocumented in this encounter Care Teams Mechanical Artist Relationship Specialty Start Date End Date Farrah Felder MD PCP - General Internal Medicine 12/03/21 Angelina Holman PA-C [address] [place] [phone] Thoracic Surgery 09/04/23 documented as of this encounter
--- OUTSIDE RECORDS SUMMARY | 2024-10-30 10:44 | XMS_ITS | Encounter Summary ---
Author Organization [facility] Address [address] [place] [address] Care Team Providers Care Lead Programmer Name Role Phone Jailene Tapia MD Primary Care Provider Shama Shafer MD Primary Care Provider [phone] Farrah Felder MD Primary Care Provider Angelina Holman PA-C Unavailable [phone] Encounter Details Date Type Department Care Team Description 12/17/2008 Hospital Medical Records [address] [place] [address] Madi Haines MD [address] [place] [phone] Social History Tobacco Use Types Packs/Day Years [...] on filedocumented in this encounter Care Teams Lead Programmer Relationship Specialty Start Date End Date Jailene Tapia MD [address] [place] [address] PCP - General 07/21/08 04/28/11 Shama Shafer MD [address] [place] [address] PCP - General Internal Medicine 04/29/11 12/02/21 Farrah Felder MD [address] [place] [address] PCP - General Internal Medicine 12/03/21 Angelina Holman PA-C [address] [place] [phone] Thoracic Surgery 09/04/23 documented as of this encounter
--- OUTSIDE RECORDS SUMMARY | 2024-10-30 10:45 | XMS_ITS | Encounter Summary ---
Author Organization [facility] Address [address] [place] [address] Care Team Providers Care Solid Waste Collection Worker Name Role Phone Shama Shafer MD Primary Care Provider [phone] Farrah Felder MD Primary Care Provider [phone] Angelina Holman PA-C Unavailable [phone] Reason for Visit * Reason Onset Date Comments refill request 11/06/2013 Encounter Details Date Type Department Care Team Description 11/06/2013 Refill Adult Medicine [address] [phone] Shama Shafer MD [address] [place] [phone] refill request Social History Tobacco Use Types [...] Miscellaneous Notes * Telephone Encounter - Jennifer Dimas L.P.N. - 11/06/2013 9:[address] Shafer, pt was supposed to f/u in September, will need appt in order to process this * Telephone Encounter - Anabel Cole - 11/06/2013 9:33 AM EDT Patient would like script to be: E-PRESCRIBED/FAXED TO PHARMACY WHEN WAS THE PATIENT'S LAST APPOINTMENT IN ADULT MEDICINE? 06/19/13 WHEN WAS THE LAST TIME THE PATIENT SAW THEIR PCP? 03/27/13 Does patient have an upcoming appointment? No-patient refused appointment, will call back to book appointment (THE MEDICATION REQUESTED IS ON THE MED LIST ABOVE) All of the medications requested were on the CURRENT MEDS list Did you check the Pharmacy information above?: YES Patient wants: 30 -day supply Is this a mail order prescription request ? NO Patients current insurance carrier is: Payor: -[place]/PPO POS Plan: FEP STANDARD $20 Product Type: PPO [id number] documented in this encounter Plan of Treatment Not on file documented as of this encounter Visit Diagnoses Not on filedocumented in this encounter Care Teams Solid Waste Collection Worker Relationship Specialty Start Date End Date Shama Shafer MD [address] [place] [address] PCP - General Internal Medicine 04/29/11 12/02/21 Farrah Felder MD [address] [place] [address] PCP - General Internal Medicine 12/03/21 Angelina Holman PA-C [address] [place] [phone] Thoracic Surgery 09/04/23 documented as of this encounter
--- OUTSIDE RECORDS SUMMARY | 2024-10-30 10:45 | XMS_ITS | Encounter Summary ---
Author Organization [facility] Address [address] [place] [address] Care Team Providers Care Orthopedic Assistant Name Role Phone Farrah Felder MD Primary Care Provider [phone] Angelina Holman PA-C Unavailable [phone] Reason for Visit * Reason Onset Date Comments Faxed Refill 01/26/2024 Encounter Details Date Type Department Care Team Description 01/26/2024 Refill Internal Medicine - [address], [address] [place], [place] [phone] Farrah Felder MD [address] [place] [phone] Faxed Refill Social History Tobacco Use [...] encounter Miscellaneous Notes * Telephone Encounter - Ernestine Shepard 01/29/2024 11:06 AM EDT LAST TIME SEEN: 11/15/2023 NEXT TIME SEEN: 03/19/2024 Lab Results Component Value Date HGBA1C 6.4 06/10/2022 CHOL 186 06/10/2022 LDL 120 06/10/2022 HDL 43 06/10/2022 TRIG 116 06/10/2022 GLU 144 01/18/2023 CREAT 0.74 01/18/2023 * Telephone Encounter - Kamla Bansal - 01/26/2024 3:15 PM EDT REFILL LAST TIME SEEN: 11/15/2023 PCP: - NEXT TIME SEEN: 03/19/2024 documented in this encounter Plan of Treatment Not on file documented as of this encounter Visit Diagnoses Not on filedocumented in this encounter Care Teams Orthopedic Assistant Relationship Specialty Start Date End Date Farrah Felder MD PCP - General Internal Medicine 12/03/21 Angelina Holman PA-C [address] [place] [phone] Thoracic Surgery 09/04/23 documented as of this encounter
--- OUTSIDE RECORDS SUMMARY | 2024-10-30 10:45 | XMS_ITS | Encounter Summary ---
Author Organization [facility] Address [address] [place] [address] Care Team Providers Care Track Production Engineer Name Role Phone Farrah Felder MD Primary Care Provider [phone] Angelina Holman PA-C Unavailable [phone] Encounter Details Date Type Department Care Team Description 01/22/2024 Pt. Non Urgent Medical Question Internal Medicine - [address], [address] [place], [place] [phone] Farrah Felder MD [address] [place] [phone] Social History Tobacco Use Types Packs/Day [...] on filedocumented in this encounter Care Teams Track Production Engineer Relationship Specialty Start Date End Date Farrah Felder MD PCP - General Internal Medicine 12/03/21 Angelina Holman PA-C [address] [place] [phone] Thoracic Surgery 09/04/23 documented as of this encounter
--- OUTSIDE RECORDS SUMMARY | 2024-10-30 10:45 | XMS_ITS | Encounter Summary ---
Author Organization [facility] Address [address] [place] [address] Care Team Providers Care Grant Manager Name Role Phone Farrah Felder MD Primary Care Provider [phone] Encounter Details Date Type Department Care Team (Latest Contact Info) Description 08/19/2024 Lab Requisition [facility] - Main Lab [address] [facility] [place] [phone] Jose Carlos Ponce MD [address] [place] [phone] termination clerk (current) use of unspecified immunomodulators and immunosuppressants Social History Tobacco Use Types Packs/Day Years [...] care for your loved ones. For example, attendant child activity or elderly care for an older adult? [...] Info) Description 11/04/2024 10:00 AM EDT Appointment [facility] [address] [facility] 2nd [place] [phone] 12/11/2024 10:30 AM EDT Office Visit [facility] Hematology Oncology [address] [place] [phone] Fabián Suárez MD [address] [place] [phone] 03/06/2025 11:30 AM EDT Office Visit Pulmonolgy - [place] [address] [place] [phone] Leisa Infante MD [address] [facility] [address] [place] [address] documented as of this encounter Procedures Procedure Name Priority Date/Time Associated Diagnosis Comments ALANINE AMINOTRANSFERASE Routine 08/19/2024 9:50 AM EST termination clerk (current) use of unspecified immunomodulators and immunosuppressants ASPARTATE AMINOTRANSFERASE Routine 08/19/2024 9:50 AM EST termination clerk (current) use of unspecified immunomodulators and immunosuppressants documented in this encounter Results * (ABNORMAL) Aspartate aminotransferase (08/19/2024 9:50 AM EST) AST (SGOT) 9(L) 10 - 42 unit/L LAB CHEMISTRY METHOD 08/19/2024 10:35 AM EST [facility] Blood Venous blood specimen / Unknown 08/19/2024 9:50 AM EST 08/19/2024 10:07 AM EST us Jose Carlos Ponce MD LAB BLOOD ORDERABLES Padmini l Result [facility] [address] [place] [address], * Alanine aminotransferase (08/19/2024 9:50 AM EST) ALT (SGPT) 19 10 - 60 unit/L LAB CHEMISTRY METHOD 08/19/2024 10:35 AM EST [facility] Blood Venous blood specimen / Unknown 08/19/2024 9:50 AM EST 08/19/2024 10:07 AM EST us Jose Carlos Ponce MD LAB BLOOD ORDERABLES Padmini l Result [facility] [address] [place] [address], documented in this encounter Visit Diagnoses Diagnosis termination clerk (current) use of unspecified immunomodulators and immunosuppressants documented in this encounter Additional Health Concerns Assessment Noted Time PHQ-9 Depression Total Score: 1 07/11/19 25 3:06 PM EST documented as of this encounter Care Teams Grant Manager Relationship Specialty Start Date End Date Farrah Felder MD [address] [phone] PCP - General Internal Medicine 05/13/24 documented as of this encounter
--- OUTSIDE RECORDS SUMMARY | 2024-10-30 10:45 | XMS_ITS | Encounter Summary ---
Author Organization [facility] Address [address] [place] [address] Care Team Providers Care Fork Operator Name Role Phone Shama Shafer MD Primary Care Provider [phone] Farrah Felder MD Primary Care Provider [phone] Angelina Holman PA-C Unavailable [phone] Reason for Visit * Reason Onset Date Comments medication problems 04/26/2013 Encounter Details Date Type Department Care Team Description 04/26/2013 Telephone Adult Medicine [address] [phone] Shama Shafer MD [address] [place] [address] [phone] medication problems Social History Tobacco Use Types Packs/Day Years [...] Telephone Encounter - Jennifer Dimas L.P.N. - 04/26/2013 11:32 AM EDT We have not received a refill request for this. Please set up request, thanks * Telephone Encounter - Obdulia Aragon - 04/26/2013 10:42 AM EDT What is the name of the medication patient is having a problem with?: hctz What is the problem?: needs a 90 day supply instead of 30 Is the patient calling about the problem? YES If the patient is not the caller who is? Is this a NEW medication?: NO How long has the patient been taking this medication? Who prescribed this medication for the patient? Dr Shafer Who is patients PCP?: Shama Shafer Payor: [place]/PPO POS Plan: FEP STANDARD $20 Product Type: PPO [id number] documented in this encounter Plan of Treatment Not on file documented as of this encounter Visit Diagnoses Not on filedocumented in this encounter Care Teams Fork Operator Relationship Specialty Start Date End Date Shama Shafer MD [address] [place] [address] PCP - General Internal Medicine 04/29/11 12/02/21 Farrah Felder MD [address] [place] [address] PCP - General Internal Medicine 12/03/21 Angelina Holman PA-C [address] [place] [phone] Thoracic Surgery 09/04/23 documented as of this encounter
--- OUTSIDE RECORDS SUMMARY | 2024-10-30 10:45 | XMS_ITS | Data Portability ---
Author Organization SINDY Sewell s, [address] Address [address] [place] [address] Care Team Providers Care Museum Tour Guide Name Role Phone VANDANA HO Primary Care Provider Assessment No assessment recorded. Plan of Treatment Reminders Order Date Submit Date Provider Last Modified By Organization Details Last Modified Time Details Appointments None recorded. Lab None recorded. Referral emergency medicine referral 2022 023 [email or web address] [facility], [address] [place], [address], 10:49:32 pulmonolog ist referral 2022 023 [email or web address] Not available 10:12:55 Procedures None recorded. Surgeries None recorded. Imaging None recorded. Medication Orders albuterol sulfate 2.5 mg/3 mL (0.083 %) solution for nebulizati on 2022 023 [email or web address] 47 Not available 10:48:28 albuterol sulfate 2.5 mg/3 mL (0.083 %) solution for nebulizati on 2022 023 [email or web address] 47 Not available 10:48:28 ipratropiu m bromide 0.02 % solution for inhalation 2022 023 47 Not available 10:48:28 prednisone 10 mg tablet 2022 023 [email or web address] 47 [facility] #[id number], [address] [facility], [place], [id number], 3 10:48:28 ipratropiu m 0.5 mg-albuter ol 3 mg (2.5 mg base)/3 mL nebulizati on soln 2022 023 [email or web address] 47 [facility] [id number], [address] [place], [place], [id number], 3 10:48:28 albuterol sulfate HFA 90 mcg/actuat ion aerosol inhaler 2022 023 [email or web address] [facility] [id number], [address] [place], [place], [id number], 3 10:07:26 prednisone 20 mg tablet 2022 023 [facility][id number], [address] [place], [place], [id number], 3 09:01:51 doxycyclin e hyclate 100 mg capsule 2022 023 [facility] #[id number], [address] [facility] [address] [place], [id number], 3 10:06:00 Patient TargetsNo targets recorded. Patient Instructions Encounter Date Encounter Id Patient Instructions Last Modified By Organization Details Last Modified Time 12/28/2022 [id number] cough: care instructions Not available 12/28/2022 10:05:51 chronic obstructive pulmonary disease (COPD): care instructions Not available 12/28/2022 10:06:04 01/10/2023 [id number] peak flow* [id number] Not available 0 01/10/2023 10:48:30 Call your PCP to schedule a follow up appointment within the next 1 week. 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 --- How to use the prednisone Take each days dose all at once in the morning. Day 1 take 6 tablets Day 2 take 6 tablets Day 3 take 5 tablets Day 4 take 5 tablets Day 5 take 4 tablets Day 6 take 4 tablets Day 7 take 3 tablets Day 8 take 3 tablets Day 9 take 2 tablets Day 10 take 2 tablets Day 11 take 1 tablet Day 12 take 1 tablet [email or web address] Not available 01/10/2023 10:03:38 If you have chronic obstructive pulmonary disease (COPD), your usual shortness of breath could suddenly get worse. You may start coughing more and have more mucus. This flare-up is called a COPD exacerbation. A lung infection or air pollution could set off an exacerbation. Sometimes it can happen after being around chemicals. Work with your doctor to make a plan for dealing with an exacerbation. You can better manage it if you plan ahead. ? How can you care for yourself at home? During an exacerbation Do not panic if you start to have one. Quick treatment may help you prevent serious breathing problems. If you have a COPD exacerbation plan that you developed with your doctor, follow it. Take your medicines exactly as your doctor tells you. Use your inhaler as directed by your doctor. If your symptoms do not get better after you use your medicine, have someone take you to the emergency room. Call an ambulance if necessary. With inhaled medicines, a spacer or a nebulizer may help you get more medicine to your lungs. Ask your doctor or pharmacist how to use them properly. Practice using the spacer in front of a mirror before you have an exacerbation. This may help you get the medicine into your lungs quickly. If your doctor has given you steroid pills, take them as directed. Your doctor may have given you a prescription for antibiotics, which you can fill if you need it. Talk to your doctor if you have any problems with your medicine. And call your doctor or nurse advice line if you have to use your antibiotic or steroid pills. Preventing an exacerbation Do not smoke. This is the most important step you can take to prevent more damage to your lungs and prevent problems. If you already smoke, it is never too late to stop. If you need help quitting, talk to your doctor about stop-smoking programs and medicines. These may increase your chances of quitting for good. Take your daily medicines as prescribed. Avoid colds and other infections. Get an influenza (flu) vaccine each year, as soon as it is available. Ask those you live or work with to do the same, so they will not get the flu and infect you. Get the pneumococcal and whooping cough (pertussis) vaccines. Try to stay away from people with colds or the flu. Wash your hands often. Avoid second-hand smoke and air pollution. Try to stay inside with your windows closed when air pollution is bad. Learn breathing techniques for COPD, such as pursed-lip breathing. These techniques may help you breathe easier during an exacerbation. ? Follow up with primary care provider in one week as needed. Go to the ED with any worsening or concerning symptoms, chest pain, shortness of breath, fever not controlled with medication, severe abdominal pain. Return here in 4-5 days as needed or if symptoms have not improved. 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 Binder Setter Referral for A cute exacerbation of chronic obstructive pulmonary disease COPD Referring Physician: Connor Faust, Urgent Care, Encounter Date: 12/28/2022 Emergency Medicine Referral for Acute exacerbation of chronic obstructive pulmonary disease Referring Physician: Fatimah [facility], Encounter Date: 01/10/2023 Results Created Date Observation Date Name Description Value Unit Range Abnormal Flag Note LastModifiedBy Organization Detail LastModifiedTime 01/11/2001/10/2023 peak flow* Pre (L/min) 120 Not Available [address] [place], [address], 01/10/2023 09:22:22 01/11/20 23 01/10/2023 peak flow* Post (L/min) 120 Not Available [address] [place], [address], 01/10/2023 09:22:22 01/11/20 23 01/10/2023 peak flow* Pulse 101 Not Available [facility] [address] [place], [address], 01/10/2023 09:22:22 01/11/20 23 01/10/2023 peak flow* Oxygen Saturation 96 Not Available [address] [place], [address], 01/10/2023 09:22:22 Result Notes None recorded. Problems Name Problem SNOMED Code Status Onset Date Resolution Date Notes Provider Name and Address Organization Details Recorded Time Chronic obstructive pulmonary disease 16836537 Active 2016 SHIELA ngo PA - [facility] 3 09:22:01 Hypertensive disorder 16878126 Active 2022 SHIELA ngo PA - [facility] 3 09:25:55 Problem Notes None recorded. Procedures Surgical History Date Name Laterality Status Provider Name and Address Organization Details Recorded Time Nebulizer Treatment completed LINOJuan Pablo SILVAE PA - [facility] 01/10/2023 10:12:26 Removal of tonsils completed SHIELA LENTZ PA - [facility] 12/28/2022 09:27:12 Imaging Results None recorded. Procedure Notes None recorded. Medical Equipment None Reported. Allergies Allergen ID Allergen Name Allergen Category Reaction Reaction Severity Criticality Documentation Date Start Date Code Code System Note Provider Name and Address Organization Details Recorded Time 080455 Bactrim medicatio n rash Not available Not available 12/28/2022 90352 9 RxNorm SHIELA ngo, PA - [facility] 3 09:24:22 Medications Name Sig Start Date Stop Date Status Note LastModified by Organization Details LastModified Time Prescripti on - Renewal active Not Available Not Available Not Available prednisone 10 mg tablet Day 1 take 6 tabletsDa y 2 take 6 tabletsDa y 3 take 5 tabletsDa y 4 take 5 tabletsDa y 5 take 4 tabletsDa y 6 take 4 tabletsDa y 7 take 3 tabletsDa y 8 take 3 tabletsDa y 9 take 2 tabletsDa y 10 take 2 tabletsDa y 11 take 1 tabletDay 12 take 1 tablet 2022 active Not Available Not Available Not Avai lable doxycyclin e hyclate 100 mg capsule TAKE 1 CAPSULE BY MOUTH TWICE DAILY FOR 7 DAYS active Not Available Not Available No t Available ipratropiu m 0.5 mg-albuter ol 3 mg (2.5 mg base)/3 mL nebulizati on soln Inhale 3 mL 3 times a day by nebulizat ion route as directed for 7 days. 2022 active Not Available Not Available Not Avai lable ketoconazo le 2 % shampoo USE ONCE DAILY FACE WASH active Not Available Not Available No t Available albuterol sulfate 2.5 mg/3 mL (0.083 %) solution for nebulizati on Inhale 3 mL by nebulizat ion route. 2022 active Not Available Not Available Not Avai lable prednisone 20 mg tablet TAKE 2 TABLETS BY MOUTH EVERY DAY FOR 5 DAYS active Not Available Not Available No t Available topiramate 25 mg tablet TAKE 1 TABLET BY MOUTH TWICE DAILY active Not Available Not Available No t Available montelukas t 10 mg tablet TAKE 1 TABLET BY MOUTH AT BEDTIME active Not Available Not Available No t Available ibuprofen 600 mg tablet TAKE 1 TABLET BY MOUTH EVERY 8 HOURS NEEDED FOR PAIN active Not Available Not Available No t Available albuterol sulfate HFA 90 mcg/actuat ion aerosol inhaler INHALE 2 PUFFS BY MOUTH THREE TIMES DAILY NEEDED active Not Available Not Available No t Available hydrocorti sone 2.5 % topical ointment active Not Available Not Available Not Available ketoconazo le 2 % topical cream APPLY TOPICALLY TO THE AFFECTED AREA TWICE DAILY active Not Available Not Available No t Available fluticason e propionate 50 mcg/actuat ion nasal spray,susp ension SHAKE LIQUID AND USE 2 SPRAYS IN EACH NOSTRIL AT BEDTIME active Not Available Not Available No t Available ipratropiu m bromide 0.02 % solution for inhalation Inhale 2.5 mL by inhalatio n route. 2022 active Billable unit is always one. Units are not the dose. Not Available Not Available Not Available naproxen 500 mg tablet TAKE 1 TABLET BY MOUTH TWICE DAILY WITH MEALS active Not Available Not Available No t Available hydrochlor othiazide 12.5 mg tablet TAKE 2 TABLETS BY MOUTH DAILY active Not Available Not Available No t Available Vitals Date Recorded Body height Body mass index (BMI) Body weight Respiratory rate Body temperature Heart rate Oxygen saturation Oxygen saturation in Arterial blood by Pulse oximetry Pain severity - 0-10 verbal numeric rating [Score] - Reported Systolic blood pressure Diastolic blood pressure Provider Name and Address Organization Details Last Updated DateTime 3 163.83 cm 48.7 kg/m2 220249. 6 g 20 /min 98.1 [degF] 82 /min 98 % 98 % 3 164 mm[Hg] 78 mm[Hg] SHIELA LENTZ PA - [facility] 3 09:30:00 Date Recorded Body height Body mass index (BMI) Body weight Respiratory rate Pain severity - 0-10 verbal numeric rating [Score] - Reported Heart rate Body temperature Oxygen saturation Oxygen saturation in Arterial blood by Pulse oximetry Systolic blood pressure Diastolic blood pressure Provider Name and Address Organization Details Last Updated DateTime 3 163.83 cm 47.7 kg/m2 124395. 05 g 20 /min 0 107 /min 98 [degF] 88 % 88 % 151 mm[Hg] 80 mm[Hg] Rox Montoya PA - [facility] 3 09:03:51 Date Recorded Oxygen saturation Oxygen saturation in Arterial blood by Pulse oximetry Inhaled oxygen flow rate Heart rate Oxygen saturation Oxygen saturation in Arterial blood by Pulse oximetry Inhaled oxygen flow rate Oxygen saturation Oxygen saturation in Arterial blood by Pulse oximetry Inhaled oxygen flow rate Provider Name and Address Organization Details Last Updated DateTime 3 93 % 93 % 3 L/min 100 /min 95 % 95 % 2 L/min 91 % 91 % 2 L/min LINO TAPIA PA - [facility] 3 10:18:56 Social History Question Answer Notes LastModified by Organizat ion Details LastModified Time Tobacco Smoking Status Former Smoker SHIELA ngo PA - [facility] 12/28/2022 09:26:58 What Is Your Level Of Alcohol Consumption? Occasional 1x Month Wine Information not available 12/28/2022 When Did You Quit Smoking? 6-10yearssince lastcigarette 9 Years Ago Quit Information not available 12/28/2022 Do You Use Any Illicit Or Recreational Drugs? No Information not available 12/28/2022 Have You Recently Traveled Abroad? No Information not available 12/28/2022 Do You Or Have You Ever Used Any Other Forms Of Tobacco Or Nicotine? No Information not available 12/28/2022 Sex: Unknown Functional Status None recorded. Mental Status None recorded. Family History Relationship Description Onset Age of this Age Resolved Age Notes LastModified by Organization Details LastModified Time Maternal Grandmother Malignant tumor of breast [email or web address] Not available 2022 09:26:21 Mother Malignant tumor of breast [email or web address] Not available 2022 09:26:22 Medical History No medical history recorded. Gynecological History Statement/Question Response LMP N/A Obstetrics History GPAL:G 0 P 0 0 0 0 Immunizations Vaccine Type Date Status Note Provider Nam e and Address Organization Details Recorded Time Td(adult) unspecified formulation 01/01/2004 completed SINDY Bruno [facility] 12/28/2022 09:20:57 Tdap 03/27/2013 completed SINDY Bruno [facility] 12/28/2022 09:20:57 Past Encounters Encounter ID Performer Location Encounter Start Date Encounter Closed Date Diagnosis/Indication Diagnosis SNOMED-CT Code Diagnosis ICD10 Code Diagnosis Note [id number] [facility] [address] [place] [address] 01/30/2018 17:14:16 01/30/2018 18:51:11 [id number] [facility] [address] [place] [address] 03/26/2015 18:27:54 03/26/2015 19:48:23 [id number] Connor Faust MD [facility] [address] [place] [address] 12/28/2022 08:44:48 12/28/2022 10:12:00 Acute exacerbation of chronic obstructive pulmonary disease 712123119 J44.1 Please follow up with PCP or Urgent Care in 3-5 days if no improvemen t or if any new symptoms occur that are concerning .Call 911 or go to nearest ER if you develop any shortness of breath, chest pain, severe headache, dizziness, or other concerning symptoms [id number] FATIMAH ALVARADO MD [facility] [address] [facility] RAVINDER brooks [address] 01/10/2023 08:50:28 01/10/2023 10:49:32 Acute exacerbation of chronic obstructive pulmonary disease 453432998 J44.1 Though she responded to the nebulizer treatments , she is unable to maintain her oxygen level without oxygen. She is not set up with oxygen at home. She was referred to the ER for further evaluation and management .The out patient plan is on hold for now. Health Concerns Section Related Observation LastModified by Organization Detai ls LastModified Time None Recorded Concern Status LastModified by Organization Details LastModified Time None Recorded Advance Directives Directive None Recorded Payers Encounter Date Sequence Insurance Name Policy Number Policy Richardson Covered Member ID Richardson Member ID Guarantor Name 03/26/2015 1 [facility] [employer] 111 Shruthi R Kynard [id number] Shruthi Kynard 01/30/2018 1 [facility] 111 Shruthi R Kynard [id number] Shruthi Kynard 12/28/2022 1 [facility] 111 Shruthi R Kynard [id number] Shruthi Kynard 01/10/2023 1 [facility] 111 Shruthi R Kynard [id number] Srhuthi Kynard Notes Date Note Type Note Provider Name and Address Organization Details Recorded Time 12/28/2022 text/html CoughReported bypatient.Quality:p roductive cough Severity:worsening Duration:30 days Timing:worsening Context:Ex Smoker Associated Symptoms:no fever; no chills; no chest pain; no heartburn; no nausea; no vomiting; no edema; no agitation; no wheezing; no post nasal dripNotes:History of COPD, Only has an Albuterol inhaler that is 3 years old. Never seen [facility]ULMO and cant get into PCP. Cough worsening over one month with increased sputum, dark colored and wheezing Connor Faust MD [address] [place], [address], PA - [facility] 12/28/2022 10:10:48 01/10/2023 text/html CoughReported bypatient.Quality:p roductive cough; symptoms worse with lying down Severity:worsening; moderate Duration:constant; symptoms lasting over 2 weeks Timing:worsening; gradual Context:Patient denies vaping; Former smoker Associated Symptoms:no fever; no chills; no chest pain; no heartburn; no nausea; no vomiting; no edema; no agitation; no post nasal drip;wheezing 62 yo female recently diagnosed with COPD and not yet seen by pulmonology. Scheduled for her first appointment on 01/25/2023. She went on vacation to [facility] and started having SOB that got worse over time. She just returned yesterday. Her SOB has worsened. FATIMAH ALVARADO MD [address] [place], [address], PA - [facility] 01/11/2023 16:49:40 OBGyn Episode No OBEpisode recorded.
--- OUTSIDE RECORDS SUMMARY | 2024-10-30 10:45 | XMS_ITS | Encounter Summary ---
Author Organization [facility] Address [address] [place] [address] Care Team Providers Care Excelsior Cutter Name Role Phone Farrah Felder MD Primary Care Provider [phone] Reason for Visit * Episode Based Medications (Routine) - Authorized Specialty Diagnoses / Procedures Referred By Contac t Referred To Contact Diagnoses Acute ITP (CMS/HCC V24, CMS/HCC V28) Fabián Suárez MD [address] [place] [address] Phone: tel: fax: [facility] [address] [place] [phone] Phone: tel: fax: Referral ID Status Reason Start Date Expiration Date V isits Requested Visits Authorized [id number] Authorized 05/08/2024 05/08/2025 1 113 Encounter Details Date Type Department Care Team (Latest Contact Info) Description 10/28/2024 9:30 AM EDT Hospital Encounter [address] [address] Fabián Suárez MD [address] [place] [address] Acute ITP (CMS/HCC V24, CMS/HCC V28) (Primary Dx) Social History Tobacco Use Types Packs/Day Years [...] for your loved ones. For example, child development instructor or elderly care for an older adult? [...] Sign Reading Time Taken Comments Blood Pressure 135/75 10/28/2024 9:52 AM EDT Pulse 75 10/28/2024 9:52 AM EDT Temperature 36.3 ??C (97.3 ??F) 10/28/2024 9:52 AM ED T Respiratory Rate - - Oxygen Saturation 97% 10/28/2024 9:52 AM EDT Inhaled Oxygen Concentration - - Weight - - Height - - Body Mass Index - - documented in this encounter Progress Notes * Shama Agarwal RN - 10/28/2024 9:30 AM EDT Arrived amb with cane for Nplate, pt is due for labs today. C/O dizziness/vertigo, nose congested, post nasal drip, has spring allergies, taking zyrtex, denies fevers or chills, no bleeding. Discussed trying pseudoephedrine to help with congestion. Labs drawn (cbc-d) and sent STAT. 1115 Labs resulted and reviewed, plt 158, Nplate released 1147 Nplate administered into LEFT arm well tolerated. Next apt scheduled. Left amb with cane, stable at D/C. documented in this encounter Plan of Treatment Upcoming Encounters Date Type Department Care Team (Late st Contact Info) Description 11/04/2024 10:00 AM EDT Appointment [facility] Infusion [facility] [address] [facility] 2nd [place] [phone] 12/11/2024 10:30 AM EDT Office Visit [facility] Hematology Oncology [address] [place] [phone] Fabián Suárez MD [address] [place] [phone] 03/06/2025 11:30 AM EDT Office Visit Pulmonolgy - [place] [address] [phone] Leisa Infante MD [address] [address] documented as of this encounter Procedures Procedure Name Priority Date/Time Associated Diagnosis Comments EXTRA TUBES Routine 10/28/2024 9:38 AM EDT CBC WITH AUTO DIFFERENTIAL STAT 10/28/2024 9:38 AM EDT Acute ITP ([facility]/HCC V24, [facility]/HCC V28) LAVENDER - EDTA Routine 10/28/2024 9:38 AM EDT CBC AND DIFFERENTIAL STAT 10/28/2024 9:38 AM EDT Acute ITP (CMS/HCC V24, CMS/HCC V28) documented in this encounter Results * (ABNORMAL) CBC auto differential (10/28/2024 9:38 AM EDT) WBC 10.6 4.8 - 10.8 K/mcL LAB HEMETOLOGY METHOD 10/28/2024 11:09 AM EDT [facility] RBC 4.30 3.80 - 4.80 M/mcL LAB HEMETOLOGY METHOD 10/28/2024 11:09 AM EDT [facility] Hemoglobin 13.4 11.5 - 16.0 g/dL LAB HEMETOLOGY METHOD 10/28/2024 11:09 AM [facility] Hematocrit 40.5 35.0 - 47.0 % LAB HEMETOLOGY METHOD 10/28/2024 11:09 AM [facility] MCV 94.2 79.0 - 98.0 FL LAB HEMETOLOGY METHOD 10/28/2024 11:09 AM [facility] MCH 31.2 27.0 - 32.0 pcg LAB HEMETOLOGY METHOD 10/28/2024 11:09 AM [facility] MCHC 33.1 32.0 - 37.0 g/dL LAB HEMETOLOGY METHOD 10/28/2024 11:09 AM [facility] RDW 13.8 11.0 - 15.0 % LAB HEMETOLOGY METHOD 10/28/2024 11:09 AM [facility] Platelets 158 130 - 400 K/mcL LAB HEMETOLOGY METHOD 10/28/2024 11:09 AM [facility] MPV 11.7(H) 7.0 - 11.0 FL LAB HEMETOLOGY METHOD 10/28/2024 11:09 AM [facility] NRBC 0.0 <1.0 % LAB HEMETOLOGY METHOD 10/28/2024 11:09 AM [facility] NRBC Absolute 0.00 <0.10 K/mcL LAB HEMETOLOGY METHOD 10/28/2024 11:09 AM [facility] Neutrophils Relative 58.6 % LAB HEMETOLOGY METHOD 10/28/2024 11:09 AM [facility] Lymphocytes Relative 29.2 % LAB HEMETOLOGY METHOD 10/28/2024 11:09 AM [facility] Monocytes Relative 8.7 % LAB HEMETOLOGY METHOD 10/28/2024 11:09 AM [facility] Eosinophils Relative 2.4 % LAB HEMETOLOGY METHOD 10/28/2024 11:09 AM EDT [facility] Basophils Relative 0.7 % LAB HEMETOLOGY METHOD 10/28/2024 11:09 AM [facility] Immature Granulocytes Relative 0.4 % LAB HEMETOLOGY METHOD 10/28/2024 11:09 AM EDT [facility] Neutrophils Absolute 6.23 1.50 - 7.00 K/mcL LAB HEMETOLOGY METHOD 10/28/2024 11:09 AM EDT [facility] Lymphocytes Absolute 3.09 1.00 - 5.00 K/mcL LAB HEMETOLOGY METHOD 10/28/2024 11:09 AM [facility] Monocytes Absolute 0.92 0.20 - 1.00 K/mcL LAB HEMETOLOGY METHOD 10/28/2024 11:09 AM [facility] Eosinophils Absolute 0.25 0.00 - 0.50 K/mcL LAB HEMETOLOGY METHOD 10/28/2024 11:09 AM [facility] Basophils Absolute 0.07 0.00 - 0.20 K/mcL LAB HEMETOLOGY METHOD 10/28/2024 11:09 AM [facility] Immature Granulocytes Absolute 0.04(H) 0.00 - 0.03 K/mcL LAB HEMETOLOGY METHOD 10/28/2024 11:09 AM EDT [facility] Blood Venous blood specimen / Unknown Venipuncture / Unknown 10/28/2024 9:38 AM EDT 10/28/2024 11:02 AM EDT Fabián Suárez MD LAB BLOOD ORDERABLE S Final Result [facility] [address] [place] [address], * Lavender tube (10/28/2024 9:38 AM EDT) Extra Tube Hold for add-ons. 10/28/2024 12:01 PM EDT [facility] Comment:Auto resulted. Blood Venous blood specimen / Unknown 10/28/2024 9:38 AM EDT 10/28/2024 10:06 AM EDT Subrammaribell Suárez MD LAB BLOOD ORDERABLE S Final Result [facility] [address] [place] [address], documented in this encounter Visit Diagnoses Diagnosis Acute ITP (CMS/[facility] V24, CMS/[facility] V28)- Primary Immune thrombocytopenic purpura documented in this encounter Administered Medications Inactive Administered Medications - up to 3 most recent administrations Medication Order MAR Action Action Date Dose Rate Site romiPLOStim (NPLATE) injection 125 mcg 125 mcg (rounded from 129 mcg = 1 mcg/kg ? 129 kg), subcutaneous, Once, On 10/28/24 at 1145, For 1 doseIndications:Acute ITP (CMS/HCC V24, CMS/HCC V28) Given 10/28/2024 11:47 AM EDT 125 mcg Left Upper Arm (Back) documented in this encounter Orders Medications Ordered That Van ht Not Have Been Administered Count Last Ordered Date First Ordered Date romiPLOStim (NPLATE) injection 125 mcg 1 Nursing Count Last Ordered Date First Orde red Date ONC NURSING COMMUNICATION 1 10/28/2024 TREATMENT CONDITIONS 1 10/28/2024 Appointment Requests Count Last Ordered Date Fi rst Ordered Date ONCBCN INFUSION APPOINTMENT REQUEST 04 1 documented in this encounter Additional Health Concerns Assessment Noted Time PHQ-9 Depression Total Score: 07/11/19 3:06 PM EST documented as of this encounter Care Teams Excelsior Cutter Relationship Specialty Start Date End Date Farrah Felder MD 175 [facility] [address] [place] [phone] PCP - General Internal Medicine 05/13/24 documented as of this encounter
--- OUTSIDE RECORDS SUMMARY | 2024-10-30 10:45 | XMS_ITS | Clinical Summary ---
Author Organization [facility] Address [address] [place] [id number] Care Team Providers Care Personal Injury Litigation Paralegal Name Role Phone Farrah Felder MD Primary Care Provider [phone] Allergies Active Allergy Reactions Criticality Noted Date Comments Sulfamethoxazole-Trimethoprim 2022 Seasonal 02/01/2023 allergies Medications Medication Sig Dispensed Refills Start Date End Date Status losartan (COZAAR) tablet 50 mg Take 2 tablets (100 mg total) by mouth daily. 0 Active montelukast (SINGULAIR) 10 MG tablet Take 1 tablet (10 mg total) by mouth every night at bedtime. 0 Active ketoconazole (NIZORAL) 2 % cream Apply topically 2 (two) times a day. 0 Active albuterol (ProAir HFA) 108 (90 Base) MCG/ACT inhaler Inhale 2 puffs into the lungs every 6 (six) hours as needed for wheezing. Inhale 2 puffs into the lungs every 6 hours as needed for wheezing or shortness of breath for up to 90 days. This is a rescue medication; not exceed 12 inhalations/24 hrs. 0 Active amLODIPine (NORVASC) tablet 5 mg Take 1 tablet (5 mg total) by mouth daily. 0 Active budesonide-formoter ol (SYMBICORT) 160-4.5 MCG/ACT inhaler INHALE 2 PUFFS INTO THE LUNGS TWICE DAILY 0 04/24/2023 Active tiotropium (SPIRIVA) 18 MCG inhalation capsule INHALE CONTENTS OF 1 CAPSULE ONCE DAILY IN THE MORNING USING HANDIHALER 0 04/21/2023 Active glipiZIDE (GLUCOTROL XL) ER 24 hr tablet 5 mg Take 1 tablet (5 mg total) by mouth 2 (two) times a day. 0 07/14/2023 Active Magnesium 400 MG TABS Take by mouth 2 (two) times a day. 0 Active Insulin Glargine (BASAGLAR KWIKPEN SC) Inject 30 Units under the skin every night at bedtime. 0 Active hydroxychloroquine (PLAQUENIL) 200 MG tablet Take by mouth daily. 0 Active tirzepatide (Mounjaro) 7.5 MG/0.5ML Inject 0.5 mL (7.5 mg total) under the skin. 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 Social History Tobacco Use Types Packs/Day Years Used Date Smoking Tobacco: Never Assessed Sex and Gender Information Value Date Recorded Sex Assigned at Female 05/05/2023 9:24 AM EDT Gender Identity Not on file Sexual Orientation Not on file Job Start Date Occupation Industry Not on file Not on file Not on file Last Filed Vital Signs Vital Sign Reading Time Taken Comments Blood Pressure 136/39 05/06/2024 9:27 AM EDT Pulse 88 05/06/2024 9:27 AM EDT Temperature 36.2 ??C (97.2 ??F) 05/06/2024 9:27 AM ED T Respiratory Rate 16 05/06/2024 9:27 AM EDT Oxygen Saturation 98% 05/06/2024 9:27 AM EDT Inhaled Oxygen Concentration - - Weight 130.2 kg (287 lb 0.6 oz) 024 10:41 AM EDT Height 162.6 cm (5' 4 ) 02/28/2024 9:28 AM EDT Body Mass Index 49.27 02/28/2024 9:28 AM EDT Plan of Treatment Health Maintenance Due Date Last Done Comments Hepatitis C Screening 1960 COVID-19 Vaccine (#1) 1958 Depression Screening 1970 BMI Counseling 1976 Preventative Health Evaluation 1976 Colon Cancer Screening (Colonoscopy) 2003 Breast Cancer Screening (Mammogram) 2008 Shingrix-Zoster Vaccine (1 o f 2) 2008 RSV Adult > 60+ Yrs or (1 - Risk 60-74 years 1-dose series) 2018 DTap / Tdap / Td (2 - Td or Tdap) 03/27/2023 03/27/2013, 01/01/2004 Fall Risk Assessment 2023 Osteoporosis Screening (DEXA Scan) 2023 Pneumococcal Vaccine (1 of 1 - PCV) 2023 Influenza Vaccine (#1) 2024 Hepatitis B Vaccines Aged Out No long er eligible based on patient's age to complete this topic RSV Ped < 20 months Aged Out No longe r eligible based on patient's age to complete this topic Care Teams Personal Injury Litigation Paralegal Relationship Specialty Start Date End Date Farrah Felder MD 175 [facility] [address] [place] [address] PCP - General Internal Medicine 01/31/23
--- OUTSIDE RECORDS SUMMARY | 2024-10-30 10:45 | XMS_ITS | Clinical Summary ---
Author Organization [facility] Address [address] [place] [address] Care Team Providers Care Nonprofit Director Name Role Phone Farrah Felder MD Primary Care Provider [phone] Allergies Active Allergy Reactions Criticality Noted Date Comments Levonorgestrel-Ethinyl Estrad 2006 Other 02/01/2023 Seasonal allergies Sulfamethoxazole-Trimethoprim 2017 Bactrim Medications amLODIPine (NORVASC) 5 mg tablet Take 1 tablet (5 mg total) by mouth daily. Active budesonide-for moteroL (SYMBICORT) 160-4.5 mcg/actuation inhaler INHALE 2 PUFFS INTO THE LUNGS TWICE DAILY 3 Active ketoconazole (NIZORAL) 2 % cream Apply topically 2 (two) times a day. Active losartan (COZAAR) 50 mg tablet Take 2 tablets (100 mg total) by mouth daily. Active tiotropium (SPIRIVA) 18 mcg per inhalation capsule INHALE CONTENTS OF 1 CAPSULE ONCE DAILY IN THE MORNING USING HANDIHALER 3 Active hydroCHLOROthi azide (HYDRODIURIL) 25 mg tablet Take 1 tablet (25 mg total) by mouth 1 (one) time each day. Active ipratropium (ATROVENT) 0.02 % nebulizer solution 02/02/202 4 Active acetaminophen (TYLENOL) 325 mg tablet Take 2 tablets (650 mg total) by mouth every 8 (eight) hours if needed for mild pain. Active ferrous sulfate 325 mg (65 mg elemental iron) tablet Take 1 tablet (325 mg total) by mouth 1 (one) time each day with breakfast. Active cyanocobalamin (VITAMIN B-12) 250 mcg tablet Take 1 tablet (250 mcg total) by mouth 1 (one) time each day. Active montelukast (SINGULAIR) 10 mg tablet Take 1 tablet (10 mg total) by mouth at bedtime. 90 tablet 3 4 Active TURMERIC ORAL Take 2,000 mg by mouth. Active albuterol HFA (PROAIR HFA ; PROVENTIL HFA ; VENTOLIN HFA) 90 mcg/actuation inhaler Inhale 2 puffs by mouth every 6 (six) hours if needed for wheezing. 6.7 g 11 5 07/18/19 26 Active folic acid (FOLVITE) 1 mg tablet Take 1 tablet (1,000 mcg total) by mouth 1 (one) time each day. 5 Active budesonide-for moteroL (Breyna) 160-4.5 mcg/actuation inhalerIndicat ions:COPD with asthma (CMS/[facility] V24, [facility] V28) Inhale 2 puffs by mouth 2 (two) times a day. Rinse mouth with water after use to reduce aftertaste and incidence of candidiasis. Do not swallow. 3 each 3 5 09/08/19 26 Active tiotropium (Spiriva with HandiHaler) 18 mcg per inhalation capsuleIndicat ions:COPD with asthma (CMS/HCC V24, [facility] V28) Place 1 capsule (18 mcg total) into inhaler and inhale 1 (one) time each day. 3 each 3 5 09/08/19 26 Active Additional Information Patient not taking.Reported on 09/23/2024 methotrexate 2.5 mg tablet TAKE 4 TABLETS BY MOUTH EVERY WEEK 5 Active clindamycin (CLEOCIN) 300 mg capsule Take 1 capsule (300 mg total) by mouth every 8 (eight) hours. 5 Active semaglutide (OZEMPIC) 2 mg/dose (8 mg/3 mL) injection pen Inject 2 mg under the skin every 7 (seven) days. 3 mL 3 5 Active semaglutide (OZEMPIC) 2 mg/dose (8 mg/3 mL) injection pen Inject 2 mg under the skin every 7 (seven) days. 3 mL 3 4 10/22/19 25 Discontin ued(Reord er) Active Problems Problem Noted Date Diagnosed Date Class 3 severe obesity due t o excess calories with serious comorbidity and body mass index (BMI) of 50.0 to 59.9 in adult 09/07/2023 Dehydration 07/11/2023 Steroid-induced hyperglycemia 07/11/2023 Essential hypertension 06/27/2023 Rheumatoid arthritis involvi ng multiple sites with positive rheumatoid factor [place] [place] [facility] [place]) 05/29/2023 Arthritis 05/01/2023 Acute ITP ([facility] [place], [facility] [place]) 02/02/2023 Encounters Date Type Department Care Team Description 10/28/2024 9:30 AM EDT Hospital Encounter [facility] [address] [place] [phone] Fabián Suárez MD Acute ITP ([facility] [place], [facility]) (Primary Dx) 10/21/2024 9:14 AM EDT - 10/21/2024 11:59 PM EDT Hospital Encounter [address] [phone] Fabián Suárez MD Acute ITP ([facility] [place], [facility] V28) (Primary Dx) Discharge Disposition: Home or Self Care 10/14/2024 9:15 AM EDT - 10/14/2024 11:59 PM EDT Hospital Encounter [facility] [address] [place] [phone] Fabián Suárez MD Acute ITP ([facility] [place], [facility] V28) (Primary Dx) Discharge Disposition: Home or Self Care 10/07/2024 9:16 AM EDT - 10/07/2024 11:59 PM EDT Hospital Encounter [facility] [address] [place] [phone] Fabián Suárez MD Acute ITP ([facility] V24, [facility]/HCC V28) (Primary Dx) Discharge Disposition: Home or Self Care 10/01/2024 Telephone [facility] [address] [place] [phone] Fabián Suárez MD 09/30/2024 9:18 AM EDT - 09/30/2024 11:59 PM EDT Hospital Encounter [facility] [address] [place] [phone] Fabián Suárez MD Acute ITP ([facility] V24, [facility] V28) (Primary Dx) Discharge Disposition: Home or Self Care 09/27/2024 Telephone [facility] [address] [place] [phone] Fabián Suárez MD 09/23/2024 9:13 AM EDT - 09/23/2024 11:59 PM EDT Hospital Encounter [facility] [address] [place] [phone] Fabián Suárez MD Acute ITP ([facility] V24, [facility]/HCC V28) (Primary Dx) Discharge Disposition: Home or Self Care 09/18/2024 10:45 AM EDT - 09/18/2024 11:59 PM EDT Hospital Encounter [facility] Scan [address] [place] [phone] Encounter for screening for malignant neoplasm of respiratory organs; Personal history of nicotine dependence Discharge Disposition: Home or Self Care 09/16/2024 9:25 AM EDT - 09/16/2024 11:59 PM EDT Hospital Encounter [facility] [address] [place] [phone] Fabián Suárez MD Acute ITP ([facility] [place], [facility]) (Primary Dx) Discharge Disposition: Home or Self Care 09/09/2024 9:30 AM EST - 09/09/2024 11:59 PM EST Hospital Encounter [facility] [address] [place] [phone] Fabián Suárez MD Acute ITP ([facility] [place], [facility]) (Primary Dx) Discharge Disposition: Home or Self Care 09/09/2024 9:15 AM EST Office Visit [facility] [address] [place] [phone] Fabián Suárez MD Acute ITP ([facility] [place], [facility]) (Primary Dx); Class 3 severe obesity due to excess calories with serious comorbidity and body mass index (BMI) of 50.0 to 59.9 in adult ([facility] [place], [facility] V[facility]); Dehydration; Steroid-induced hyperglycemia 09/06/2024 10:30 AM EST Office Visit [place]gy [place] [address] [facility] [address] [place] [phone] Leisa Infante MD COPD with asthma ([facility] [place], [facility]) (Primary Dx); SHAWN (obstructive sleep apnea); Lung nodules; Ex-smoker 09/02/2024 9:27 AM EST - 09/02/2024 11:59 PM EST Hospital Encounter [facility] [address] [place] [phone] Fabián Suárez MD Acute ITP ([facility], [facility]) (Primary Dx) Discharge Disposition: Home or Self Care 08/20/2024 Telephone Lung Screening Program - [place] [address] [facility] [address] [place] [phone] Pati Germain [place] Appointment (1st Notification) 08/19/2024 9:27 AM EST - 08/19/2024 11:59 PM EST Hospital Encounter [facility] [address] [place] [phone] Fabián Suárez MD Acute ITP ([facility] [place], [facility]) (Primary Dx) Discharge Disposition: Home or Self Care 08/19/2024 Lab Requisition [facility] - [facility] Lab [address] [facility] [place] [phone] Jose Carlos Ponce MD 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 (current) use of unspecified immunomodulators and immunosuppressants 08/12/2024 9:24 AM EST - 08/12/2024 11:59 PM EST Hospital Encounter [facility] [address] [phone] Acute ITP ([facility], [facility]) (Primary Dx) Discharge Disposition: Home or Self Care 08/05/2024 9:25 AM EST - 08/05/2024 11:59 PM EST Hospital Encounter [facility] [address] [place] [phone] Fabián Suárez MD Acute ITP ([facility], [facility]) (Primary Dx) Discharge Disposition: Home or Self Care from Last 3 Months Surgical History Surgery Date Site/Laterality Comments OTHER SURGICAL HISTORY 12/08/2012 PROCEDURE: MAMMOGRAM TUBAL LIGATION PROCEDURE: HISTORICAL TUBAL LIGATION TONSILLECTOMY PROCEDURE: HISTORICAL TONSILLECTOMY COLONOSCOPY 10/15/2010 PROCEDURE: HISTORICAL COLONOSCOPY; COMMENT: adenoma; repeat in three years MULTIPLE TOOTH EXTRACTIONS PROCEDURE: EACH ADD TOOTH EXTRACTION Medical History Medical History Date Comments Allergic rhinitis, cause unspecified 06/29/2005 DX:Allergic rhinitis, cause unspecified Obesity, unspecified 01/11/2007 DX:Obesity, unspecified Essential hypertension, benign 06/29/2005 D X:Essential hypertension, benign Other specified personal his tory presenting hazards to health(V15.89) DX:Other specifie d personal history presenting hazards to health(V15.89); COMMENT: + HPV Back pain 10/22/2008 DX:Back pain; CO MMENT: Work - related injury 08/17 Peripheral edema 02/23/2017 DX:Peripheral e memo COPD (chronic obstructive pu lmonary disease) ([facility] [place], [facility]) 11/13/2017 DX:COPD (chronic o bstructive pulmonary disease) ([facility]) Family History Medical History Relation Name Comments Other: schizophrenia Brother Relation Name Status Comments Brother Father Maternal Grandmother Mother in50s Social History Tobacco Use Types Packs/Day Years Used Date Smoking Tobacco: Former Cigarettes Q uit: 08/23/2013 Passive Smoke Exposure: Past Smokeless Tobacco: Never Tobacco Cessation:Counseling Given: Not Answered Alcohol Use Standard Drinks/Week Comments Yes 0 [...] Record ed Within the last 3 months, ho w many times did you visit the emergency [...] care for your loved ones. For example, childcare provider or elderly care for an older adult? [...] Orientation Straight 08/19/2024 9: 27 AM EST Obstetrics History Last Filed Vital Signs Vital Sign Reading Time Taken Comments Blood Pressure 135/75 10/28/2024 9:52 AM EDT Pulse 75 10/28/2024 9:52 AM EDT Temperature 36.3 ??C (97.3 ??F) 10/28/2024 9:52 AM ED T Respiratory Rate 18 10/14/2024 9:22 AM EDT Oxygen Saturation 97% 10/28/2024 9:52 AM EDT Inhaled Oxygen Concentration - - Weight 129 kg (284 lb 3.2 oz) 10/21/2024 9:20 AM EDT Height 162.6 cm (5' 4 ) 09/09/2024 9:34 AM EST Body Mass Index 48.78 09/09/2024 9:34 AM EST Plan of Treatment Upcoming Encounters Date Type Department Care Team (Late st Contact Info) Description 11/04/2024 10:00 AM EDT Appointment [facility] [address] [phone] 12/11/2024 10:30 AM EDT Office Visit [facility] [address] [place] [phone] Michelle-Fabián Bobby MD [address] [place] [phone] 03/06/2025 11:30 AM EDT Office Visit Pulmonolgy [place] [address] [facility] [address] [place] [phone] Leisa Infante MD 175 [facility] [address] [place] [address] Health Maintenance Due Date Last Done Comments COVID-19 Vaccine (#1) 1963 Diabetes: Annual Foot Exam 1968 Diabetes: Annual Retina Eye Exam 1968 Pneumococcal Vaccine: 50+ Years (1 of 2 - PCV) 1977 Zoster Vaccines (1 of 2) 2008 RSV Immunization Adult Patients (1 - Risk 60-74 years 1-dose series) 2018 Cholesterol Screening (Lipid Panel) 08/10/2021 Colorectal Cancer Screening: Stool Based Tests (FOBT/FIT) 08/10/2021 Hepatitis C Screening 08/10/2021 Osteoporosis Screening (Bone Density Screening) 08/10/2021 DTaP,Tdap,and Td Vaccines (3 - Td or Tdap) 03/27/2023 03/27/2013, 01/01/2004 Diabetes: Annual Urine Albumin-Creatinine Ratio (uACR) 08/11/2023 Diabetes: Blood Sugar Control Test (HGBA1C) 10/14/2024 04/15/2024 Influenza Vaccine (Season Ended) 2025 Depression Screening 07/11/2025 07/11/2024 Social Influencers of Health Screening 07/11/2025 07/11/2024 Diabetes: Annual GFR (Glomerular Filtration Rate) 09/02/2025 09/02/2024, 07/01/2024, 06/11/2024, Additional history exists Hypertension/CHF/CAD Annual BMP Blood Test 09/02/2025 09/02/2024, 07/01/2024, 06/11/2024, Additional history exists Falls Risk Assessment 10/28/2025 10/28/2024 Breast Cancer Screening 04/16/2026 04/16/20, 04/16/2024, 07/18/2018, Additional history exists HIB Vaccines Aged Out No longer eligi ble based on patient's age to complete this topic HPV Vaccines Aged Out No longer eligi ble based on patient's age to complete this topic Hepatitis A Vaccines Aged Out No long er eligible based on patient's age to complete this topic Hepatitis B Vaccines Aged Out No long er eligible based on patient's age to complete this topic IPV Vaccines Aged Out No longer eligi ble based on patient's age to complete this topic MMR Vaccines Aged Out No longer eligi ble based on patient's age to complete this topic Meningococcal ACWY Vaccine Aged Out N o longer eligible based on patient's age to complete this topic Meningococcal B Vaccine Aged Out No l onger eligible based on patient's age to complete this topic RSV Immunization Patients Under 20 months Aged Out No longer eligible based on patient's age to complete this topic Varicella Vaccines Aged Out No longer eligible based on patient's age to complete this topic Procedures Procedure Name Priority Date/Time Associated Diagnosis Comments CBC WITH AUTO DIFFERENTIAL STAT 10/28/2024 9:38 AM EDT Acute ITP (CMS/HCC V24, CMS/HCC V28) CBC AND DIFFERENTIAL STAT 10/28/2024 9:38 AM EDT Acute ITP (CMS/HCC V24, CMS/HCC V28) LAVENDER - EDTA Routine 10/28/2024 9:38 AM EDT EXTRA TUBES Routine 10/28/2024 9:38 AM EDT CBC WITH AUTO DIFFERENTIAL STAT 10/21/2024 9:28 AM EDT Acute ITP (CMS/HCC V24, CMS/HCC V28) CBC AND DIFFERENTIAL STAT 10/21/2024 9:28 AM EDT Acute ITP (CMS/HCC V24, CMS/HCC V28) CBC WITH AUTO DIFFERENTIAL STAT 09/30/2024 9:34 AM EDT Acute ITP (CMS/HCC V24, CMS/HCC V28) CBC AND DIFFERENTIAL STAT 09/30/2024 9:34 AM EDT Acute ITP (CMS/HCC V24, CMS/HCC V28) CT LUNG SCREENING Routine 09/18/2024 10:55 AM EDT Encounter for screening for malignant neoplasm of respiratory organs Personal history of nicotine dependence CBC WITH AUTO DIFFERENTIAL STAT 09/16/2024 9:51 AM EDT Acute ITP (CMS/HCC V24, CMS/HCC V28) CBC AND DIFFERENTIAL STAT 09/16/2024 9:51 AM EDT Acute ITP (CMS/HCC V24, CMS/HCC V28) CBC WITH AUTO DIFFERENTIAL STAT 09/02/2024 10:02 AM EST Acute ITP (CMS/HCC V24, CMS/HCC V28) COMPREHENSIVE METABOLIC PANEL STAT 09/02/2024 10:02 AM EST Acute ITP (CMS/HCC V24, CMS/HCC V28) CBC AND DIFFERENTIAL STAT 09/02/2024 10:02 AM EST Acute ITP (CMS/HCC V24, CMS/HCC V28) CBC WITH AUTO DIFFERENTIAL STAT 08/19/2024 9:52 AM EST Acute ITP (CMS/HCC V24, CMS/HCC V28) CBC AND DIFFERENTIAL STAT 08/19/2024 9:52 AM EST Acute ITP (CMS/HCC V24, CMS/HCC V28) ASPARTATE AMINOTRANSFERASE Routine 08/19/2024 9:50 AM EST [facility] (current) use of unspecified immunomodulators and immunosuppressants ALANINE AMINOTRANSFERASE Routine 08/19/2024 9:50 AM EST [facility] (current) use of unspecified immunomodulators and immunosuppressants CBC WITH AUTO DIFFERENTIAL STAT 08/12/2024 9:39 AM EST Acute ITP (CMS/HCC V24, CMS/HCC V28) CBC AND DIFFERENTIAL STAT 08/12/2024 9:39 AM EST Acute ITP (CMS/HCC V24, CMS/HCC V28) CBC WITH AUTO DIFFERENTIAL STAT 08/05/2024 9:45 AM EST Acute ITP (CMS/HCC V24, CMS/HCC V28) CBC AND DIFFERENTIAL STAT 08/05/2024 9:45 AM EST Acute ITP (CMS/HCC V24, CMS/HCC V28) SCREENING MAMMOGRAPHY BI 2-VIEW BREAST INC CAD Routine 04/16/2024 10:03 AM EDT Encounter for general adult medical examination without abnormal findings from Last 3 Months or Most Recently Relevant to Health Maintenance Results * (ABNORMAL) CBC auto differential (10/28/2024 9:38 AM EDT) Only the most recent of8 resultswithin the time period is included. WBC 10.6 4.8 - 10.8 K/mcL LAB HEMETOLOGY METHOD 10/28/2024 11:09 AM [facility] RBC 4.30 3.80 - 4.80 M/mcL LAB HEMETOLOGY METHOD 10/28/2024 11:09 AM [facility] Hemoglobin 13.4 11.5 - 16.0 g/dL LAB HEMETOLOGY METHOD 10/28/2024 11:09 AM [facility] Hematocrit 40.5 35.0 - 47.0 % LAB HEMETOLOGY METHOD 10/28/2024 11:09 AM [facility] MCV 94.2 79.0 - 98.0 FL LAB HEMETOLOGY METHOD 10/28/2024 11:09 AM [facility] MCH 31.2 27.0 - 32.0 pcg LAB HEMETOLOGY METHOD 10/28/2024 11:09 AM [facility] MCHC 33.1 32.0 - 37.0 g/dL LAB HEMETOLOGY METHOD 10/28/2024 11:09 AM [facility] RDW 13.8 11.0 - 15.0 % LAB HEMETOLOGY METHOD 10/28/2024 11:09 AM [facility] Platelets 158 130 - 400 K/mcL LAB HEMETOLOGY METHOD 10/28/2024 11:09 AM [facility] MPV 11.7(H) 7.0 - 11.0 FL LAB HEMETOLOGY METHOD 10/28/2024 11:09 AM [facility] NRBC 0.0 <1.0 % LAB HEMETOLOGY METHOD 10/28/2024 11:09 AM [facility] NRBC Absolute 0.00 <0.10 K/mcL LAB HEMETOLOGY METHOD 10/28/2024 11:09 AM [facility] Neutrophils Relative 58.6 % LAB HEMETOLOGY METHOD 10/28/2024 11:09 AM [facility] Lymphocytes Relative 29.2 % LAB HEMETOLOGY METHOD 10/28/2024 11:09 AM [facility] Monocytes Relative 8.7 % LAB HEMETOLOGY METHOD 10/28/2024 11:09 AM [facility] Eosinophils Relative 2.4 % LAB HEMETOLOGY METHOD 10/28/2024 11:09 AM [facility] Basophils Relative 0.7 % LAB HEMETOLOGY METHOD 10/28/2024 11:09 AM [facility] Immature Granulocytes Relative 0.4 % LAB HEMETOLOGY METHOD 10/28/2024 11:09 AM [facility] Neutrophils Absolute 6.23 1.50 - 7.00 K/mcL LAB HEMETOLOGY METHOD 10/28/2024 11:09 AM [facility] Lymphocytes Absolute 3.09 1.00 - 5.00 K/mcL LAB HEMETOLOGY METHOD 10/28/2024 11:09 AM [facility] Monocytes Absolute 0.92 0.20 - 1.00 K/[facility] LAB HEMETOLOGY METHOD 10/28/2024 11:09 AM EDT [facility] Eosinophils Absolute 0.25 0.00 - 0.50 K/[facility] LAB HEMETOLOGY METHOD 10/28/2024 11:09 AM EDT [facility] Basophils Absolute 0.07 0.00 - 0.20 K/[facility] LAB HEMETOLOGY METHOD 10/28/2024 11:09 AM EDT [facility] Immature Granulocytes Absolute 0.04(H) 0.00 - 0.03 K/[facility] LAB HEMETOLOGY METHOD 10/28/2024 11:09 AM EDT [facility] Blood Venous blood specimen / Unknown Venipuncture / Unknown 10/28/2024 9:38 AM EDT 10/28/2024 11:02 AM EDT us Fabián Suárez MD LAB BLOOD ORDERABLE S Final Result [facility] [address] [place] [address], [place] [phone] * Lavender tube (10/28/2024 9:38 AM EDT) Extra Tube Hold for add-ons. 10/28/2024 12:01 PM EDT [facility] Comment:Auto resulted. Blood Venous blood specimen / Unknown 10/28/2024 9:38 AM EDT 10/28/2024 10:06 AM EDT Fabián Suárez MD LAB BLOOD ORDERABLE S Final Result [facility] [address] [place] [address], [place] [phone] * CT Lung Screening (09/18/2024 10:55 AM EDT) Anatomical Region Laterality Modality Chest Computed Tomogra phy 09/18/2024 1:03 PM EDT Impressions 09/18/2024 1:07 PM EDT No suspicious pulmonary nodules ASSESSMENT: LungRADS Category1: Negative - Continue annual screening with LDCT in 12 months Please see below for additional details of LungRADS Algorithm. Complete Lung RADS description including probabilities of malignancy and prevalence can be found at: http://www.acr.org/Quality-Safety/Resources/LungRADS LungRADS Version 1.0 Assessment Categories Release date: November 04, 2013 Category 0: Incomplete - Additional lung cancer screening CT images and/or comparison with prior CT is needed. - Prior chest CT(s) being located for comparison. - Part or all of the lungs cannot be evaluated. Category 1: Negative - Continue annual screening with LDCT in 12 months - No lung nodules - Nodule(s) with specific calcifications (complete, central, popcorn, concentric rings) and fat containing nodules Category 2: Benign Appearance/Behavior - Continue annual screening with LDCT in 12 months - Solid nodule < 6 mm or new solid nodule < 4 mm. - Part solid nodule(s) < 6 mm total diameter on baseline screening. - Ground glass nodule < 20 mm or ? 20 mm and unchanged or slowly growing. - Category 3 or 4 nodules unchanged for at least 3 months. Category 3: Probably Benign - 6 month LDCT - Solid nodule(s) ? 6 to < 8 mm at baseline OR new 4 mm to < 6 mm. - Part solid nodule(s) ? 6 mm total diameter with solid component < 6 mm OR new < 6 mm total diameter. - Ground glass nodule ? [address] or new. Category 4A: Suspicious - 3 month LDCT; PET/CT may be used when there is ? 8 mm solid component - Solid nodule(s) ? 8 to < 15 mm at baseline OR growing < 8 mm OR new 6 to < 8 mm. - Part solid nodule(s) ? 6 mm with solid component ? 6 mm to < 8 mm OR with a new or growing < 4 mm solid component. - Endobronchial nodule. Category 4B: Suspicious - Chest CT with or without contrast, PET/CT and/or tissue sampling depending on the probability of malignancy and comorbidities. PET/CT may be used when there is a ? 8 mm solid component. - Solid nodule(s) ? 15 mm OR new or growing and ? 8 mm - Part solid nodule(s) with a solid component ? 8 mm OR a new or growing ? 4 mm solid component Category 4X: Suspicious - Chest CT with or without contrast, PET/CT and/or tissue sampling depending on the probability of malignancy and comorbidities. PET/CT may be used when there is a ? 8 mm solid component. - Category 3 or 4 nodules with additional features or imaging findings that increases the suspicion of malignancy. Category S: Clinically Significant or Potentially Clinically Significant Findings (non lung cancer) Category C: Modifier for patients with a prior diagnosis of lung cancer who return to screening NOTES: 1) Negative screen: does not mean that an individual does not have lung cancer. 2) Size: nodules should be measured on lung windows and reported as the average diameter rounded to the nearest whole number; for round nodules only a single diameter measurement is necessary. 3) Size Thresholds: apply to nodules at first detection, and that grow and reach a higher size category. 4) Growth: an increase in size of > 1.5 mm. 5) Exam Category: each exam should be coded 0-4 based on the nodule(s). 6) Exam Modifiers: S and C modifiers may be added to the 0-4 category. 7) Lung Cancer Diagnosis: Once a patient is diagnosed with lung cancer, further management (including additional imaging such as PET/CT) may be performed for purposes of lung cancer staging; this is no longer screening. 8) Practice audit definitions: a negative screen is defined as categories 1 and 2; a positive screen is defined as categories 3 and 4. 10) Category 4X: nodules with additional imaging findings that increase the suspicion of lung cancer, such as spiculation, GGN that doubles in size in 1 year, enlarged lymph nodes etc. 11) Nodules with features of an intrapulmonary lymph node should be managed by mean diameter and the 0-4 numerical category classification. 12) Category 3 and 4A nodules that are unchanged on interval CT should be coded as category 2, and individuals returned to screening in 12 months. 13) LDCT = low dose chest CT. -------- FINAL REPORT -------- Dictated By: Grant Ponce Dictated Date: 09/18/2024 13:03 ET Assigned Physician: Grant Ponce Reviewed and Electronically Signed By: Grant Ponce Signed Date: 09/18/2024 13:07 ET Workstation ID: [id number] Transcribed By: Self Edit Transcribed Date: 09/18/2024 13:03 ET Narrative 09/18/2024 1:07 PM EDT History: ??64 year-old 20 pack-year former smoker, asymptomatic, for lung cancer screening. Comparison: 09/04/2023 Technique: Helical volumetric imaging of the thorax was performed, using low- dose technique, without IV contrast. DLP: 160.1 mGy/cm CT dose reduction technique utilized with one or more of the following: Automated exposure control and/or adjustment of the mA and/or kV according to patient size and/or use of iterative reconstruction technique. Findings: Lungs: Emphysematous changes throughout with bullae at the right apex. ??There is no consolidation or effusion. ??There is no suspicious pulmonary nodule evident. ?? Pleura: There are no pleural effusions. ??No calcified or noncalcified pleural plaques. Heart/Aorta: The heart is normal in size. ??There is no pericardial effusion. Esophagus: The esophagus is not significantly thickened or dilated. ?? Lymph Nodes:There are no enlarged thoracic lymph nodes. ?? Upper Abdomen: This study was performed without contrast and with lower than standard dose. These factors reduce the sensitivity for detection of small lesions in the upper abdomen. Hypodense lesion right liver dome. Osseous Structures: No suspicious osseous abnormalities. Procedure Note Grant Ponce MD - 09/18/2024 History: 64 year-old 20 pack-year former smoker, asymptomatic, for lungcancer screening. Comparison: 09/04/2023 Technique: Helical volumetric imaging of the thorax was performed, usinglow-dose technique, without IV contrast. DLP: 160.1 mGy/cm CT dose reduction technique utilized with one or more of the following:Automated exposure control and/or adjustment of the mA and/or kV accordingto patient size and/or use of iterative reconstruction technique. Findings: Lungs: Emphysematous changes throughout with bullae at the right apex.There is no consolidation or effusion. There is no suspicious pulmonarynodule evident. Pleura: There are no pleural effusions. No calcified or noncalcifiedpleural plaques. Heart/Aorta: The heart is normal in size. There is no pericardialeffusion. Esophagus: The esophagus is not significantly thickened or dilated. Lymph Nodes:There are no enlarged thoracic lymph nodes. Upper Abdomen: This study was performed without contrast and with lowerthan standard dose. These factors reduce the sensitivity for detection ofsmall lesions in the upper abdomen. Hypodense lesion right liver dome. Osseous Structures: No suspicious osseous abnormalities. IMPRESSION: No suspicious pulmonary nodules ASSESSMENT: LungRADS Category1: Negative - Continue annual screening with LDCT in 12months Please see below for additional details of LungRADS Algorithm. CompleteLung RADS description including probabilities of malignancy and prevalencecan be found at: http://www.acr.org/Quality-Safety/Resources/LungRADS LungRADS Version 1.0 Assessment Categories Release date: November 04, 2013 Category 0: Incomplete - Additional lung cancer screening CT images and/orcomparison with prior CT is needed. - Prior chest CT(s) being located for comparison. - Part or all of the lungs cannot be evaluated. Category 1: Negative - Continue annual screening with LDCT in 12 months - No lung nodules - Nodule(s) with specific calcifications (complete, central, popcorn,concentric rings) and fat containing nodules Category 2: Benign Appearance/Behavior - Continue annual screening withLDCT in 12 months - Solid nodule < 6 mm or new solid nodule < 4 mm. - Part solid nodule(s) < 6 mm total diameter on baseline screening. - Ground glass nodule < 20 mm or ? 20 mm and unchanged or slowlygrowing. - Category 3 or 4 nodules unchanged for at least 3 months. Category 3: Probably Benign - 6 month LDCT - Solid nodule(s) ? 6 to < 8 mm at baseline OR new 4 mm to < 6 mm. - Part solid nodule(s) ? 6 mm total diameter with solid component < 6 mmOR new < 6 mm total diameter. - Ground glass nodule ? [address] or new. Category 4A: Suspicious - 3 month LDCT; PET/CT may be used when there is ?8 mm solid component - Solid nodule(s) ? 8 to < 15 mm at baseline OR growing < 8 mm OR new 6 to< 8 mm. - Part solid nodule(s) ? 6 mm with solid component ? 6 mm to < 8 mm ORwith a new or growing < 4 mm solid component. - Endobronchial nodule. Category 4B: Suspicious - Chest CT with or without contrast, PET/CT and/ortissue sampling depending on the probability of malignancy andcomorbidities. PET/CT may be used when there is a ? 8 mm solidcomponent. - Solid nodule(s) ? 15 mm OR new or growing and ? 8 mm - Part solid nodule(s) with a solid component ? 8 mm OR a new or growing ?4 mm solid component Category 4X: Suspicious - Chest CT with or without contrast, PET/CT and/ortissue sampling depending on the probability of malignancy andcomorbidities. PET/CT may be used when there is a ? 8 mm solidcomponent. - Category 3 or 4 nodules with additional features or imaging findingsthat increases the suspicion of malignancy. Category S: Clinically Significant or Potentially Clinically SignificantFindings (non lung cancer) Category C: Modifier for patients with a prior diagnosis of lung cancerwho return to screening NOTES: 1) Negative screen: does not mean that an individual does not have lungcancer. 2) Size: nodules should be measured on lung windows and reported as theaverage diameter rounded to the nearest whole number; for round nodulesonly a single diameter measurement is necessary. 3) Size Thresholds: apply to nodules at first detection, and that grow andreach a higher size category. 4) Growth: an increase in size of > 1.5 mm. 5) Exam Category: each exam should be coded 0-4 based on the nodule(s). 6) Exam Modifiers: S and C modifiers may be added to the 0-4 category. 7) Lung Cancer Diagnosis: Once a patient is diagnosed with lung cancer,further management (including additional imaging such as PET/CT) may beperformed for purposes of lung cancer staging; this is no longerscreening. 8) Practice audit definitions: a negative screen is defined as categories1 and 2; a positive screen is defined as categories 3 and 4. 10) Category 4X: nodules with additional imaging findings that increasethe suspicion of lung cancer, such as spiculation, GGN that doubles insize in 1 year, enlarged lymph nodes etc. 11) Nodules with features of an intrapulmonary lymph node should bemanaged by mean diameter and the 0-4 numerical category classification. 12) Category 3 and 4A nodules that are unchanged on interval CT should becoded as category 2, and individuals returned to screening in 12 months. 13) LDCT = low dose chest CT. -------- FINAL REPORT -------- Dictated By: Grant Ponce Dictated Date: 09/18/2024 13:03 ET Assigned Physician: Grant Ponce Reviewed and Electronically Signed By: Grant Ponce Signed Date: 09/18/2024 13:07 ET Workstation ID: [id number] Transcribed By: Self Edit Transcribed Date: 09/18/2024 13:03 ET Rajinder Ozuna MD IM CT PROCEDURES Final Result * (ABNORMAL) Comprehensive metabolic panel (09/02/2024 10:02 AM EST) Sodium 141 133 - 145 mmol/L LAB CHEMISTRY METHOD 09/02/2024 10:46 AM [facility] Potassium 3.7 3.5 - 5.5 mmol/L LAB CHEMISTRY METHOD 09/02/2024 10:46 AM [facility] Chloride 107 96 - 110 mmol/L LAB CHEMISTRY METHOD 09/02/2024 10:46 AM [facility] CO2 24 21 - 32 mmol/L LAB CHEMISTRY METHOD 09/02/2024 10:46 AM [facility] Anion Gap 10 3 - 11 LAB CHEMISTRY METHOD 09/02/2024 10:46 AM [facility] Glucose 121(H) 70 - 100 mg/dL LAB CHEMISTRY METHOD 09/02/2024 10:46 AM [facility] BUN 11 5 - 25 mg/dL LAB CHEMISTRY METHOD 09/02/2024 10:46 AM [facility] Creatinine 0.66 0.50 - 1.10 mg/dL LAB CHEMISTRY METHOD 09/02/2024 10:46 AM [facility] eGFR 97 >=60 mL/min/1. 73m2 LAB CHEMISTRY METHOD 09/02/2024 10:46 AM [facility] Comment:Calculation based on the??Chronic Kidney Disease Epidemiology Collaboration (CKD-EPI) equation refit??without adjustment for race. BUN/Creatinine Ratio 16.7 LAB CHEMISTRY METHOD 09/02/2024 10:46 AM [facility] Calcium 9.5 8.5 - 10.5 mg/dL LAB CHEMISTRY METHOD 09/02/2024 10:46 AM [facility] AST (SGOT) 9(L) 10 - 42 unit/L LAB CHEMISTRY METHOD 09/02/2024 10:46 AM [facility] ALT (SGPT) 19 10 - 60 unit/L LAB CHEMISTRY METHOD 09/02/2024 10:46 AM [facility] Alkaline Phosphatase 63 42 - 121 unit/L LAB CHEMISTRY METHOD 09/02/2024 10:46 AM [facility] Total Protein 7.6 6.0 - 8.0 g/dL LAB CHEMISTRY METHOD 09/02/2024 10:46 AM [facility] Albumin 3.6 3.2 - 5.0 g/dL LAB CHEMISTRY METHOD 09/02/2024 10:46 AM [facility] Total Bilirubin 0.5 0.0 - 1.4 mg/dL LAB CHEMISTRY METHOD 09/02/2024 10:46 AM [facility] Blood Venous blood specimen / Unknown Venipuncture / Unknown 09/02/2024 10:02 AM EST 09/02/2024 10:14 AM EST us Fabián Suárez MD LAB BLOOD ORDERABLE S Final Result [facility] [address] [place] [address], * Alanine aminotransferase (08/19/2024 9:50 AM EST) ALT (SGPT) 19 10 - 60 unit/L LAB CHEMISTRY METHOD 08/19/2024 10:35 AM [facility] Blood Venous blood specimen / Unknown 08/19/2024 9:50 AM EST 08/19/2024 10:07 AM EST Jose Carlos Ponce MD LAB BLOOD ORDERABLES Padmini l Result Performing Organization Address [facility]/ZIP Co de Phone Number [facility] [address] [place] [address], [place] [phone] * (ABNORMAL) Aspartate aminotransferase (08/19/2024 9:50 AM EST) AST (SGOT) 9(L) 10 - 42 unit/L LAB CHEMISTRY METHOD 08/19/2024 10:35 AM EST [facility] Blood Venous blood specimen / Unknown 08/19/2024 9:50 AM EST 08/19/2024 10:07 AM EST Jose Carlos Ponce MD LAB BLOOD ORDERABLES Padmini l Result Performing Organization Address [facility] de Phone Number [facility] [address] [place] [address], [place] [phone] * SCREENING MAMMOGRAPHY BI 2-VIEW BREAST INC CAD (04/16/2024 10:03 AM EDT) Anatomical Region Laterality Modality Radiographic Anjana ging 05/02/2023 8:50 AM EDT Narrative 04/16/2024 3:10 PM EDT This is a summary report. The complete report is available in the patient's medical record. If you cannot access the medical record, please contact the sending organization for a detailed fax or copy. Full field digital screening tomosynthesis mammography, reviewed with CAD and compared to previous. The breasts are composed of fatty and fibroglandular tissue. ??No suspicious mass, architectural distortion or suspicious calcifications are identified. IMPRESSION: : No mammographic evidence of malignancy. BIRADS 1-Negative; N. Breast density: The breasts have scattered areas of fibroglandular density. 5 year breast cancer risk assessment 2.1 % Lifetime breast cancer risk assessment 7.3 % Breast cancer risk category Low (<15%) Location: [facility], [address] [place] [address], [address], [phone] Procedure Note Kassandra Morataya MD - 05/07/2024 This is a summary report. The complete report is available in thepatient's medical record. If you cannot access the medical record, pleasecontact the sending organization for a detailed fax or copy. Full field digital screening tomosynthesis mammography, reviewed with CADand compared to previous. The breasts are composed of fatty andfibroglandular tissue. No suspicious mass, architectural distortion orsuspicious calcifications are identified. IMPRESSION: : No mammographic evidence of malignancy. BIRADS 1-Negative; N. Breast density: The breasts have scattered areas of fibroglandulardensity. 5 year breast cancer risk assessment 2.1 % Lifetime breast cancer risk assessment 7.3 % Breast cancer risk category Low (<15%) Location: [facility], [address] [place] [address], [address], [phone] Farrah Felder MD IMG XR PROCEDURES Final Result from Last 3 Months or Most Recently Relevant to Health Maintenance Insurance [facility] MEDICARE Care Teams Nonprofit Director Relationship Specialty Start Date End Date Farrah Felder MD [address] [phone] PCP - General Internal Medicine 05/13/24
--- OUTSIDE RECORDS SUMMARY | 2024-10-30 10:45 | XMS_ITS | Encounter Summary ---
Author Organization [facility] Address [address] [place] [address] Care Team Providers Care Nylon Winder Name Role Phone Shama Shafer MD Primary Care Provider [phone] Farrah Felder MD Primary Care Provider [phone] Angelina Holman PA-C Unavailable [phone] Reason for Visit * Reason Onset Date Comments DME Request 03/28/2013 Encounter Details Date Type Department Care Team Description 03/28/2013 Telephone Adult Medicine [address] [phone] Shama Shafer MD [address] [place] [id number] DME Request Social History Tobacco Use Types [...] encounter Miscellaneous Notes * Telephone Encounter - Katy Esteban - 03/28/2013 10:37 AM EDT Pt called requested DME prescription mailed to her home. documented in this encounter Plan of Treatment Not on file documented as of this encounter Visit Diagnoses Not on filedocumented in this encounter Care Teams Nylon Winder Relationship Specialty Start Date End Date Shama Shafer MD [address] [place] [address] PCP - General Internal Medicine 04/29/11 12/02/21 Farrah Felder MD [address] [place] [address] PCP - General Internal Medicine 12/03/21 Angelina Holman PA-C [address] [place] [phone] Thoracic Surgery 09/04/23 documented as of this encounter
--- OUTSIDE RECORDS SUMMARY | 2024-10-30 10:46 | XMS_ITS | Encounter Summary ---
Author Organization [facility] Address [address] [place] [address] Care Team Providers Care Client Services Analyst Name Role Phone Farrah Felder MD Primary Care Provider [phone] Angelina Holman PA-C Unavailable [phone] Reason for Visit * Reason Onset Date Comments medication problems 04/08/2024 Encounter Details Date Type Department Care Team Description 04/08/2024 Telephone Pulmonology - [place] [address] [phone] Leisa Infante MD [address] [phone] medication problems Social History Tobacco Use Types [...] encounter Miscellaneous Notes * Telephone Encounter - Gianna Rodriguezo - 04/08/2024 3:35 PM EDT Pharmacy fax received for Breyna 160/4.5 mcg oral inh . Medication not covered by plan , preferred medication is Budesformotaer , wixela inhubaer , flutica salmeaer , fluticvilan inh . documented in this encounter Plan of Treatment Not on file documented as of this encounter Visit Diagnoses Not on filedocumented in this encounter Care Teams Client Services Analyst Relationship Specialty Start Date End Date Farrah Felder MD PCP - General Internal Medicine 12/03/21 Angelina Holman PA-C [address] [place] [phone] Thoracic Surgery 09/04/23 documented as of this encounter
--- OUTSIDE RECORDS SUMMARY | 2024-10-30 10:46 | XMS_ITS | Encounter Summary ---
Author Organization [facility] Address [address] [facility] [place] [address] Care Team Providers Care Gastrointestinal Technician Name Role Phone Farrah Felder MD Primary Care Provider [phone] Angelina Holman PA-C Unavailable [phone] Encounter Details Date Type Department Care Team Description 02/05/2024 Orders Only Medical Records [address] [facility] [place] [address] Social History Tobacco Use Types Packs/Day Years [...] Name Priority Date/Time Associated Diagnosis Comments OUTSIDE EYE EXAM Routine 11/21/2023 documented in this encounter Results * OUTSIDE EYE EX[facility] (11/21/2023) [facility]ED[facility] documented in this encounter Visit Diagnoses Not on filedocumented in this encounter Care Teams Gastrointestinal Technician Relationship Specialty Start Date End Date Farrah Felder MD PCP - General Internal Medicine 12/03/21 Angelina Holman PA-C [address] [place] [phone] Thoracic Surgery 09/04/23 documented as of this encounter
--- OUTSIDE RECORDS SUMMARY | 2024-10-30 10:46 | XMS_ITS | Encounter Summary ---
Author Organization [facility] Address [address] [place] [address] Care Team Providers Care Senior Application Programmer Name Role Phone Farrah Felder MD Primary Care Provider [phone] Angelina Holman PA-C Unavailable [phone] Encounter Details Date Type Department Care Team Description 01/08/2024 Pt. Non Urgent Medical Question Internal Medicine - [address], [address] [place], [place] [phone] Farrah Felder MD [address] [place] [phone] Social History Tobacco Use Types Packs/Day [...] filedocumented in this encounter Care Teams Senior Application Programmer Relationship Specialty Start Date End Date Farrah Felder MD PCP - General Internal Medicine 12/03/21 Angelina Holman PA-C [address] [place] [phone] Thoracic Surgery 09/04/23 documented as of this encounter
--- OUTSIDE RECORDS SUMMARY | 2024-10-30 10:46 | XMS_ITS | Encounter Summary ---
Author Organization [facility] Address [address] [place] [address] Care Team Providers Care Machine Tool Designer Name Role Phone Farrah Felder MD Primary Care Provider [phone] Angelina Holman PA-C Unavailable [phone] Encounter Details Date Type Department Care Team Description 01/01/2024 Pt. Non Urgent Medical Question Internal Medicine - [address], [address] [place], [place] [phone] Farrah Felder MD [address] [place] [phone] Social History Tobacco Use Types Packs/Day [...] on filedocumented in this encounter Care Teams Machine Tool Designer Relationship Specialty Start Date End Date Farrah Felder MD PCP - General Internal Medicine 12/03/21 Angelina Holman PA-C [address] [place] [phone] Thoracic Surgery 09/04/23 documented as of this encounter
--- OUTSIDE RECORDS SUMMARY | 2024-10-30 10:46 | XMS_ITS | Encounter Summary ---
Author Organization [facility] Address [address] [facility] [place] [address] Care Team Providers Care Healthcare Network Consultant Name Role Phone Shama Shafer MD Primary Care Provider [phone] Farrah Felder MD Primary Care Provider [phone] Angelina Holman PA-C Unavailable [phone] Encounter Details Date Type Department Care Team Description 08/27/2021 Concierge Receptionist Report Medical Records [address] [place] [address] Fozia Henderson APRN Social History Tobacco Use Types Packs/Day Years [...] on filedocumented in this encounter Care Teams Healthcare Network Consultant Relationship Specialty Start Date End Date Shama Shafer MD [address] [place] [address] PCP - General Internal Medicine 04/29/11 12/02/21 Farrah Felder MD [address] [place] [address] PCP - General Internal Medicine 12/03/21 Angelina Holman PA-C [address] [place] [phone] Thoracic Surgery 09/04/23 documented as of this encounter
--- OUTSIDE RECORDS SUMMARY | 2024-10-30 10:46 | XMS_ITS | Encounter Summary ---
Author Organization [facility] Address [address] [place] [address] Care Team Providers Care Rand Cementer Name Role Phone Farrah Felder MD Primary Care Provider [phone] Angelina Holman PA-C Unavailable [phone] Encounter Details Date Type Department Care Team Description 12/11/2023 Pt. Non Urgent Medical Question Internal Medicine - [address], [address] [place], [place] [phone] Farrah Felder MD [address] [place] [phone] Social History Tobacco Use Types Packs/Day [...] on filedocumented in this encounter Care Teams Rand Cementer Relationship Specialty Start Date End Date Farrah Felder MD PCP - General Internal Medicine 12/03/21 Angelina Holman PA-C [address] [place] [phone] Thoracic Surgery 09/04/23 documented as of this encounter
--- OUTSIDE RECORDS SUMMARY | 2024-10-30 10:46 | XMS_ITS | Encounter Summary ---
Author Organization [facility] Address [address] [facility] [place] [address] Care Team Providers Care Demo Coordinator Name Role Phone Shama Shafer MD Primary Care Provider [phone] Farrah Felder MD Primary Care Provider [phone] Angelina Holman PA-C Unavailable [phone] Encounter Details Date Type Department Care Team Description 02/11/2019 Rubber Press Tender Report Medical Records [address] [place] [address] [facility] Social History Tobacco Use Types Packs/Day Years [...] on filedocumented in this encounter Care Teams Demo Coordinator Relationship Specialty Start Date End Date Shama Shafer MD [address] [place] [address] PCP - General Internal Medicine 04/29/11 12/02/21 Farrah Felder MD [address] [place] [address] PCP - General Internal Medicine 12/03/21 Angelina Holman PA-C [address] [place] [phone] Thoracic Surgery 09/04/23 documented as of this encounter
--- OUTSIDE RECORDS SUMMARY | 2024-10-30 10:46 | XMS_ITS | Encounter Summary ---
Author Organization [facility] Address [address] [facility] [place] [address] Care Team Providers Care Endless Track Vehicle Supervisor Name Role Phone Farrah Felder MD Primary Care Provider [phone] Angelina Holman PA-C Unavailable [phone] Encounter Details Date Type Department Care Team Description 02/14/2024 Orders Only Medical Records [address] [place] [address] Fabián Suárez MD Social History Tobacco Use [...] Date/Time Associated Diagnosis Comments OUTSIDE LAB Routine 02/14/2024 documented in this encounter Results * OUTSIDE LAB (02/14/2024) [facility] documented in this encounter Visit Diagnoses Not on filedocumented in this encounter Care Teams Endless Track Vehicle Supervisor Relationship Specialty Start Date End Date Farrah Felder MD PCP - General Internal Medicine 12/03/21 Angelina Holman PA-C [address] [phone] Thoracic Surgery 09/04/23 documented as of this encounter
--- OUTSIDE RECORDS SUMMARY | 2024-10-30 10:46 | XMS_ITS | Encounter Summary ---
Author Organization [facility] Address [address] [facility] [place] [address] Care Team Providers Care Angular Js Developer Name Role Phone Shama Shafer MD Primary Care Provider [phone] Farrah Felder MD Primary Care Provider [phone] Angelina Holman PA-C Unavailable [phone] Encounter Details Date Type Department Care Team Description 05/14/2019 Release of Information Medical Records [address] [place] [id number] Abstract, Provider Social History Tobacco Use Types [...] on filedocumented in this encounter Care Teams Angular Js Developer Relationship Specialty Start Date End Date Shama Shafer MD [address] [place] [address] PCP - General Internal Medicine 04/29/11 12/02/21 Farrah Felder MD [address] [place] [address] [place] [address] PCP - General Internal Medicine 12/03/21 Angelina Holman PA-C [address] [place] [phone] Thoracic Surgery 09/04/23 documented as of this encounter
--- OUTSIDE RECORDS SUMMARY | 2024-10-30 10:46 | XMS_ITS | Encounter Summary ---
Author Organization [facility] Address [address] [place] [address] Care Team Providers Care Supply Chain Coordinator Name Role Phone Farrah Felder MD Primary Care Provider +1 [phone] Angelina Holman PA-C Unavailable [phone] Encounter Details Date Type Department Care Team Description 02/19/2024 Pt. Non Urgent Medical Question Internal Medicine - [address], [address] [place], [place] [phone] Farrah Felder MD [address] [place] [phone] Social History Tobacco Use Types Packs/Day [...] on filedocumented in this encounter Care Teams Supply Chain Coordinator Relationship Specialty Start Date End Date Farrah Felder MD PCP - General Internal Medicine 12/03/21 Angelina Holman PA-C [address] [place] [phone] Thoracic Surgery 09/04/23 documented as of this encounter
--- OUTSIDE RECORDS SUMMARY | 2024-10-30 10:46 | XMS_ITS | Encounter Summary ---
Author Organization [facility] Address [address] [place] [address] Care Team Providers Care Flosser Name Role Phone Farrah Felder MD Primary Care Provider +1 [phone] Angelina Holman PA-C Unavailable [phone] Encounter Details Date Type Department Care Team Description 12/18/2023 Pt. Non Urgent Medical Question Internal Medicine - [address], [address] [place], [place] [phone] Farrah Felder MD [address] [place] [phone] Social History Tobacco Use Types Packs/Day [...] on filedocumented in this encounter Care Teams Flosser Relationship Specialty Start Date End Date Farrah Felder MD PCP - General Internal Medicine 12/03/21 Angelina Holman PA-C [address] [place] [phone] Thoracic Surgery 09/04/23 documented as of this encounter
--- OUTSIDE RECORDS SUMMARY | 2024-10-30 10:46 | XMS_ITS | Encounter Summary ---
Author Organization [facility] Address [address] [place] [address] Care Team Providers Care Gold Frame Assembler Name Role Phone Farrah Felder MD Primary Care Provider +[phone] Angelina Holman PA-C Unavailable [phone] Encounter Details Date Type Department Care Team Description 04/08/2024 Pt. Non Urgent Medical Question Internal Medicine - [address], [address] [place], [place] [phone] Farrah Felder MD [address] [place] [phone] Social History Tobacco Use Types Packs/Day [...] on filedocumented in this encounter Care Teams Gold Frame Assembler Relationship Specialty Start Date End Date Farrah Felder MD PCP - General Internal Medicine 12/03/21 Angelina Holman PA-C [address] [place] [phone] Thoracic Surgery 09/04/23 documented as of this encounter
--- OUTSIDE RECORDS SUMMARY | 2024-10-30 10:46 | XMS_ITS | Encounter Summary ---
Author Organization [facility] Address [address] [place] [address] Care Team Providers Care Optomechanical Engineer Name Role Phone Farrah Felder MD Primary Care Provider [phone] Angelina Holman PA-C Unavailable [phone] Encounter Details Date Type Department Care Team Description 03/12/2024 Pt. Non Urgent Medical Question Internal Medicine - [address], [address] [place], [place] [phone] Farrah Felder MD [address] [place] [phone] Social History Tobacco Use Types Packs/Day [...] on filedocumented in this encounter Care Teams Optomechanical Engineer Relationship Specialty Start Date End Date Farrah Felder MD PCP - General Internal Medicine 12/03/21 Angelina Holman PA-C [address] [place] [phone] Thoracic Surgery 09/04/23 documented as of this encounter
--- OUTSIDE RECORDS SUMMARY | 2024-10-30 10:46 | XMS_ITS | Encounter Summary ---
Author Organization [facility] Address [address] [place] [address] Care Team Providers Care Marketing Manager Health Communications Name Role Phone Farrah Felder MD Primary Care Provider [phone] Angelina Holman PA-C Unavailable [phone] Encounter Details Date Type Department Care Team Description 04/08/2024 Pt. Non Urgent Medical Question Pulmonology - [place] [address] [phone] Leisa Infante MD [address] [phone] Social History Tobacco Use Types [...] on filedocumented in this encounter Care Teams Marketing Manager Health Communications Relationship Specialty Start Date End Date Farrah Felder MD PCP - General Internal Medicine 12/03/21 Angelina Holman PA-C [address] [place] [phone] Thoracic Surgery 09/04/23 documented as of this encounter
--- OUTSIDE RECORDS SUMMARY | 2024-10-30 10:46 | XMS_ITS | Encounter Summary ---
Author Organization [facility] Address [address] [place] [address] Care Team Providers Care Plastics Worker Name Role Phone Farrah Felder MD Primary Care Provider +[phone] Angelina Holman PA-C Unavailable [phone] Encounter Details Date Type Department Care Team Description 02/19/2024 Pt. Non Urgent Medical Question Internal Medicine - [address], [address] [place], [place] [phone] Farrah Felder MD [address] [place] [phone] Social History Tobacco Use Types Packs/Day [...] on filedocumented in this encounter Care Teams Plastics Worker Relationship Specialty Start Date End Date Farrah Felder MD PCP - General Internal Medicine 12/03/21 Angelina Holman PA-C [address] [place] [phone] Thoracic Surgery 09/04/23 documented as of this encounter
--- OUTSIDE RECORDS SUMMARY | 2024-10-30 10:46 | XMS_ITS | Encounter Summary ---
Author Organization [facility] Address [address] [place] [address] Care Team Providers Care Stacker Name Role Phone Farrah Felder MD Primary Care Provider [phone] Angelina Holman PA-C Unavailable [phone] Encounter Details Date Type Department Care Team Description 03/25/2024 Pt. Non Urgent Medical Question Internal Medicine - [address], [address] [place], [place] [phone] Farrah Felder MD [address] [place] [phone] Social History Tobacco Use Types Packs/Day [...] on filedocumented in this encounter Care Teams Stacker Relationship Specialty Start Date End Date Farrah Felder MD PCP - General Internal Medicine 12/03/21 Angelina Holman PA-C [address] [place] [phone] Thoracic Surgery 09/04/23 documented as of this encounter
--- OUTSIDE RECORDS SUMMARY | 2024-10-30 10:46 | XMS_ITS | Encounter Summary ---
Author Organization [facility] Address [address] [place] [address] Care Team Providers Care Cell Tester Name Role Phone Farrah Felder MD Primary Care Provider +[phone] Angelina Holmna PA-C Unavailable [phone] Encounter Details Date Type Department Care Team Description 04/15/2024 Pt. Non Urgent Medical Question Internal Medicine - [address], [address] [place], [place] [phone] Farrah Felder MD [address] [place] [phone] Social History Tobacco Use Types Packs/Day [...] on filedocumented in this encounter Care Teams Cell Tester Relationship Specialty Start Date End Date Farrah Felder MD PCP - General Internal Medicine 12/03/21 Angelina Holman PA-C [address] [place] [phone] Thoracic Surgery 09/04/23 documented as of this encounter
--- OUTSIDE RECORDS SUMMARY | 2024-10-30 10:46 | XMS_ITS | Encounter Summary ---
Author Organization [facility] Address [address] [place] [address] Care Team Providers Care Or First Assist Registered Nurse Name Role Phone Shama Shafer MD Primary Care Provider [phone] Farrah Felder MD Primary Care Provider [phone] Angelina Holman PA-C Unavailable [phone] Reason for Visit * Reason Onset Date Comments Mychart Rx Refill 12/02/2021 Encounter Details Date Type Department Care Team Description 12/02/2021 Refill Adult Medicine [address] [place] [address] [phone] Shaam Shafer MD [address] [place] [phone] Mychart Rx Refill Social History Tobacco Use Types Packs/Day [...] suspected to have Coronavirus/COVID-19? No / Unsure 12/02/2021 8:18 AM EDT documented as of this encounter Miscellaneous Notes * Telephone Encounter - Ariana Last M.A. - 12/02/2021 8:39 AM EDT Pt has appt today w/Dr. Felder for NPV. Will route msg to [facility] as I do not see that this med has ever been prescribed through [facility] in the past. * Telephone Encounter - Ariana Last M.A. - 12/02/2021 8:37 AM EDTFrom: Shruthi Lama To: Office of Juan Pablo Shafer Sent: 12/02/2021 5:42 AM EDT Subject: Medication Renewal Request Refills have been requested for the following medications: Other - Montelukast 10MG Preferred pharmacy: [id number] YESICA MANZO AT [facility] YESICA MANOZ & MANDO documented in this encounter Plan of Treatment Not on file documented as of this encounter Visit Diagnoses Not on filedocumented in this encounter Care Teams Or First Assist Registered Nurse Relationship Specialty Start Date End Date Shama Shafer MD [address] [place] [address] PCP - General Internal Medicine 04/29/11 12/02/21 Farrah Felder MD [address] [place] [address] PCP - General Internal Medicine 12/03/21 Angelina Holman PA-C [address] [place] [phone] Thoracic Surgery 09/04/23 documented as of this encounter
--- OUTSIDE RECORDS SUMMARY | 2024-10-30 10:46 | XMS_ITS | Encounter Summary ---
Author Organization [facility] Address [address] [place] [address] Care Team Providers Care Supervising Airplane Pilot Name Role Phone Farrah Felder MD Primary Care Provider [phone] Angelina Holman PA-C Unavailable [phone] Encounter Details Date Type Department Care Team Description 04/25/2024 Pt. Non Urgent Medical Question Internal Medicine - [address], [address] [place], [place] [phone] Farrah Felder MD [address] [place] [phone] Social History Tobacco Use Types Packs/Day [...] on filedocumented in this encounter Care Teams Supervising Airplane Pilot Relationship Specialty Start Date End Date Farrah Felder MD PCP - General Internal Medicine 12/03/21 Angelina Holman PA-C [address] [place] [phone] Thoracic Surgery 09/04/23 documented as of this encounter
--- OUTSIDE RECORDS SUMMARY | 2024-10-30 10:46 | XMS_ITS | Encounter Summary ---
Author Organization [facility] Address [address] [place] [address] Care Team Providers Care Bending Machine Operator Name Role Phone aFrrah Felder MD Primary Care Provider [phone]- [phone] Angelina Holman PA-C Unavailable [phone] Encounter Details Date Type Department Care Team Description 02/05/2024 Pt. Non Urgent Medical Question Internal Medicine - [address], [address] [place], [place] [phone] Farrah Felder MD [address] [place] [phone] Social History Tobacco Use Types Packs/Day [...] Miscellaneous Notes * Telephone Encounter - Ernestine Yu M.A. - 02/06/2024 9:32 AM EDTFrom: Shruthi Lama To: [facility] Bradford Sent: 02/05/2024 6:56 AM EDT Subject: Weekly Blood Sugar and Blood Pressure Levels Here are my levels documented in this encounter Plan of Treatment Not on file documented as of this encounter Visit Diagnoses Not on filedocumented in this encounter Care Teams Bending Machine Operator Relationship Specialty Start Date End Date Farrah Felder MD PCP - General Internal Medicine 12/03/21 Angelina Holman PA-C [address] [place] [phone] Thoracic Surgery 09/04/23 documented as of this encounter
--- OUTSIDE RECORDS SUMMARY | 2024-10-30 10:46 | XMS_ITS | Encounter Summary ---
Author Organization [facility] Address [address] [facility] [place] [address] Care Team Providers Care Assistant Director Of Financial Aid Name Role Phone Farrah Felder MD Primary Care Provider [phone] Angelina Holman PA-C Unavailable [phone] Encounter Details Date Type Department Care Team Description 03/14/2024 Orders Only Medical Records [address] [place] [address] Fabián Suárez MD Social History Tobacco Use [...] Date/Time Associated Diagnosis Comments OUTSIDE LAB Routine 03/13/2024 documented in this encounter Results * OUTSIDE LAB (03/13/2024) [facility] documented in this encounter Visit Diagnoses Not on filedocumented in this encounter Care Teams Assistant Director Of Financial Aid Relationship Specialty Start Date End Date Farrah Felder MD PCP - General Internal Medicine 12/03/21 Angelina Holman PA-C [address] [phone] Thoracic Surgery 09/04/23 documented as of this encounter
--- OUTSIDE RECORDS SUMMARY | 2024-10-30 10:47 | XMS_ITS | Encounter Summary ---
Author Organization [facility] Address [address] [place] [address] Care Team Providers Care Power Electronics Engineer Name Role Phone Farrah Felder MD Primary Care Provider [phone] Angelina Holman PA-C Unavailable [phone] Encounter Details Date Type Department Care Team Description 03/19/2022 Pt. Non Urgent Medical Question Internal Medicine - [place] [address] [facility], [address] [place] [address] Farrah Felder MD [address] [place] [phone] Social History [...] on filedocumented in this encounter Care Teams Power Electronics Engineer Relationship Specialty Start Date End Date Farrah Felder MD PCP - General Internal Medicine 12/03/21 Angelina Holman PA-C [address] [phone] Thoracic Surgery 09/04/23 documented as of this encounter
--- OUTSIDE RECORDS SUMMARY | 2024-10-30 10:47 | XMS_ITS | Encounter Summary ---
Author Organization [facility] Address [address] [place] [address] Care Team Providers Care Platen Press Feeder Name Role Phone Farrah Felder MD Primary Care Provider [phone] Angelina Holman PA-C Unavailable [phone] Encounter Details Date Type Department Care Team Description 02/15/2022 Pt. Non Urgent Medical Question Internal Medicine - [address], [address] [place], [place] [phone] Farrah Felder MD [address] [place] [phone] Social History Tobacco Use Types Packs/Day [...] * Telephone Encounter - Bianca Jarrett - 02/15/2022 1:12 PM EDT Last PCP wants to switch pt off Lisinopril please review and advise * Telephone Encounter - Bianca Jarrett - 02/15/2022 8:48 AM EDT Please review and advise would lisinopril be the cause of pt legs swelling before and after knee arthoscopy surgery ? documented in this encounter Plan of Treatment Not on file documented as of this encounter Visit Diagnoses Not on filedocumented in this encounter Care Teams Platen Press Feeder Relationship Specialty Start Date End Date Farrah Felder MD PCP - General Internal Medicine 12/03/21 Angelina Holman PA-C [address] [place] [phone] Thoracic Surgery 09/04/23 documented as of this encounter
--- OUTSIDE RECORDS SUMMARY | 2024-10-30 10:47 | XMS_ITS | Encounter Summary ---
Author Organization [facility] Address [address] [place] [address] Care Team Providers Care Export Manager Name Role Phone Farrah Felder MD Primary Care Provider [phone] Angelina Holman PA-C Unavailable [phone] Encounter Details Date Type Department Care Team Description 06/10/2022 Pt. Non Urgent Medical Question Internal Medicine - [address], [address] [place], [place] [phone] Farrah Felder MD [address] [place] [phone] Social History Tobacco Use Types Packs/Day [...] suspected to have Coronavirus/COVID-19? No / Unsure 06/09/2022 1:49 PM EST documented as of this encounter Miscellaneous Notes * Telephone Encounter - Catrina Loco MA - 06/10/2022 2:15 PM ESTFrom: Shruthi Lama To: [facility] Felder Sent: 06/10/2022 1:36 PM EST Subject: Question regarding CHOLESTEROL What does my test results mean documented in this encounter Plan of Treatment Not on file documented as of this encounter Visit Diagnoses Not on filedocumented in this encounter Care Teams Export Manager Relationship Specialty Start Date End Date Farrah Felder MD PCP - General Internal Medicine 12/03/21 Angelina Holman PA-C [address] [place] [phone] Thoracic Surgery 09/04/23 documented as of this encounter
--- OUTSIDE RECORDS SUMMARY | 2024-10-30 10:47 | XMS_ITS | Encounter Summary ---
Author Organization [facility] Address [address] [place] [address] Care Team Providers Care Soft Work Wrapper Layer And Examiner Name Role Phone Shama Shafer MD Primary Care Provider [phone] Farrah Felder MD Primary Care Provider +[phone] Angelina Holman PA-C Unavailable [phone] Reason for Visit * Reason Onset Date Comments Abnormal Mammogram 08/04/2014 Encounter Details Date Type Department Care Team Description 08/04/2014 Telephone Radiology - [address] [phone] Radiology, Authorizing Abnormal Mammogram Social History Tobacco Use Types Packs/Day Years [...] encounter Miscellaneous Notes * Telephone Encounter - Leisa Garcia - 08/19/2014 11:36 AM EST Sent standard letter on 08/19/14 bw * Telephone Encounter - Abi Shepard 08/08/2014 11:52 AM EST Left message l.m. * Telephone Encounter - Abi Arredondo - 08/04/2014 1:41 PM EST Left message l.m. documented in this encounter Plan of Treatment Not on file documented as of this encounter Visit Diagnoses Not on filedocumented in this encounter Care Teams Soft Work Wrapper Layer And Examiner Relationship Specialty Start Date End Date Shama Shafer MD [address] [place] [address] PCP - General Internal Medicine 04/29/11 12/02/21 Farrah Felder MD [address] [place] [address] PCP - General Internal Medicine 12/03/21 Angelina Holman PA-C [address] [place] [phone] Thoracic Surgery 09/04/23 documented as of this encounter
--- OUTSIDE RECORDS SUMMARY | 2024-10-30 10:47 | XMS_ITS | Encounter Summary ---
Author Organization [facility] Address [address] [place] [address] Care Team Providers Care Java Application Developer Name Role Phone Farrah Felder MD Primary Care Provider [phone] Angelina Holman PA-C Unavailable [phone] Encounter Details Date Type Department Care Team Description 01/22/2022 Pt. Non Urgent Medical Question Internal Medicine - [address], [address] [place], [place] [phone] Farrah Felder MD [address] [place] [phone] Social History Tobacco Use Types Packs/Day [...] encounter Miscellaneous Notes * Telephone Encounter - Ephraim Khoury M.A. - 01/24/2022 2:54 PM EDTFrom: Shruthi Lama To: [facility] Felder Sent: 01/22/2022 8:35 AM EDT Subject: Ibuprofen 600 mg Hello, I???m looking for a refill, thank you. documented in this encounter Plan of Treatment Not on file documented as of this encounter Visit Diagnoses Not on filedocumented in this encounter Care Teams Java Application Developer Relationship Specialty Start Date End Date Farrah Felder MD PCP - General Internal Medicine 12/03/21 Angelina Holman PA-C [address] [place] [phone] Thoracic Surgery 09/04/23 documented as of this encounter
--- OUTSIDE RECORDS SUMMARY | 2024-10-30 10:47 | XMS_ITS | Encounter Summary ---
Author Organization [facility] Address [address] [place] [address] Care Team Providers Care Pain Medicine Physician Name Role Phone Shama Shafer MD Primary Care Provider [phone] Farrah Felder MD Primary Care Provider [phone] Angelina Holman PA-C Unavailable [phone] Reason for Visit * Reason Comments E-prescribe Rx Request Encounter Details Date Type Department Care Team Description 01/15/2015 Refill OBGYN - [place] [address] [place] [address] Polo La MD E-prescribe Rx Request Social History Tobacco Use Types Packs/Day [...] encounter Miscellaneous Notes * Telephone Encounter - Eliza Jacobo L.P.N. - 01/15/2015 1:06 PM EDT Medication pended and routed to a covering provider for approval LINDA * Telephone Encounter - Leola Lawrence - 01/15/2015 12:04 PM EDT WHEN WAS THE PATIENTS LAST ANNUAL HOTEL MANAGER EXAM? 01/29/14 Does patient have an upcoming appointment? Yes 02/06/15 (THE MEDICATION REQUESTED IS ON THE MED LIST ABOVE) Did you check the Pharmacy information above?: YES Indicate how soon the patient needs the script: GARY Patient would like script to be: E-PRESCRIBED/FAXED TO PHARMACY Is the doctor here today?: NO Can the message wait until the doctor returns?: NO Has the patient been told that the prescription will not be filled until the end of the day? YES Payor: [place]/PPO POS / Plan: FEP STANDARD $20 / Product Type: PPO [id number] documented in this encounter Plan of Treatment Not on file documented as of this encounter Visit Diagnoses Not on filedocumented in this encounter Care Teams Pain Medicine Physician Relationship Specialty Start Date End Date Shama Shafer MD [address] [place] [address] PCP - General Internal Medicine 04/29/11 12/02/21 Farrah Felder MD [address] [place] [address] PCP - General Internal Medicine 12/03/21 Angelina Holman PA-C [address] [place] [phone] Thoracic Surgery 09/04/23 documented as of this encounter
--- OUTSIDE RECORDS SUMMARY | 2024-10-30 10:47 | XMS_ITS | Encounter Summary ---
Author Organization [facility] Address [address] [place] [address] Care Team Providers Care Staff Psychologist Name Role Phone Farrah Felder MD Primary Care Provider [phone] Angelina Holman PA-C Unavailable [phone] Encounter Details Date Type Department Care Team Description 04/18/2022 Pt. Non Urgent Medical Question Internal Medicine - [place] [address] [facility], [address] [place] [address] Farrah Felder MD [address] [place] [phone] Social History Tobacco Use Types Packs/Day [...] on filedocumented in this encounter Care Teams Staff Psychologist Relationship Specialty Start Date End Date Farrah Felder MD PCP - General Internal Medicine 12/03/21 Angelina Holman PA-C [address] [phone] Thoracic Surgery 09/04/23 documented as of this encounter
--- OUTSIDE RECORDS SUMMARY | 2024-10-30 10:47 | XMS_ITS | Encounter Summary ---
Author Organization [facility] Address [address] [place] [address] Care Team Providers Care Object Oriented Programmer Name Role Phone Farrah Felder MD Primary Care Provider +[phone] Angelina Holman PA-C Unavailable [phone] Reason for Visit * Reason Onset Date Comments Mychart Rx Refill 05/09/2022 Encounter Details Date Type Department Care Team Description 05/09/2022 Refill Adult Medicine [address] [phone] Shama Shafer MD [address] [place] [address] [phone] Mychart Rx Refill Social History Tobacco Use [...] Telephone Encounter - Ariana Last M.A. - 05/09/2022 11:43 AM EDT Pt nds to schedule appt w/PCP care team prior to rx refills. Pt sent MyChart msg w/this info. documented in this encounter Plan of Treatment Not on file documented as of this encounter Visit Diagnoses Not on filedocumented in this encounter Care Teams Object Oriented Programmer Relationship Specialty Start Date End Date Farrah Felder MD PCP - General Internal Medicine 12/03/21 Angelina Holman PA-C [address] [place] [phone] Thoracic Surgery 09/04/23 documented as of this encounter
--- OUTSIDE RECORDS SUMMARY | 2024-10-30 10:47 | XMS_ITS | Encounter Summary ---
Author Organization [facility] Address [address] [place] [address] Care Team Providers Care Steel Loader Name Role Phone Farrah Felder MD Primary Care Provider +[phone] Angelina Holman PA-C Unavailable [phone] Encounter Details Date Type Department Care Team Description 06/13/2022 Orders Only Internal Medicine - [address], [address] [place], [place] [phone] Farrah Felder MD [address] [place] [phone] Pain of left lower extremity; Positive D dimer Social History Tobacco Use Types Packs/Day Years [...] PM EST documented as of this encounter Plan of Treatment Not on file documented as of this encounter Procedures Procedure Name Priority Date/Time Associated Diagnosis Comments UT DUP-SCAN XTR VEINS UNILATERAL/LIMITED STUDY Routine 06/10/2022 Pain of left lower extremity Positive D dimer documented in this encounter Results * EXTREMITY VEINS STUDY, UNILATERAL (06/10/2022) Farrah Felder MD ULTRASOUND documented in this encounter Visit Diagnoses Diagnosis Pain of left lower extremity Positive D dimer Abnormal coagulation profile documented in this encounter Care Teams Steel Loader Relationship Specialty Start Date End Date Farrah Felder MD PCP - General Internal Medicine 12/03/21 Angelina Holman PA-C [address] [place] [phone] Thoracic Surgery 09/04/23 documented as of this encounter
== END 2024-10-30 10:12 | disposition home or self-care (01) ==
LOC: HO.RHES 09:35
PROVIDERS: PCP Internal Medicine; Visit Provider Internal Medicine Rheumatology
DX: M06.9 Rheumatoid arthritis, unspecified (principal); Z79.899 Other long term (current) drug therapy; Z86.2 Personal history of diseases of the blood and blood-forming organs and certain disorders involving the immune mechanism; M17.0 Bilateral primary osteoarthritis of knee
CPT/HCPCS: 99214

== ENCOUNTER 2024-11-01 10:36 | Outpatient (REF) | payer BC, SELFPAY ==
--- OUTSIDE RECORDS SUMMARY | 2024-11-01 11:15 | XMS_ITS | Clinical Summary ---
Author Organization [facility] [place] Address [address] [place] [address] Care Team Providers Care Human Resources Clerk Name Role Phone Farrah Felder MD Primary Care Provider [phone] Allergies Active Allergy Reactions Criticality Noted Date [...] (Breyna) 160-4.5 mcg/actuation inhalerIndicat ions:COPD with asthma (CMS/[facility] V24, [facility] V28) Inhale 2 puffs by mouth 2 (two) times a day. Rinse mouth with water after use to reduce aftertaste and incidence of candidiasis. Do not swallow. 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 ([facility] V24, [facility] V28) 05/29/2023 Arthritis 05/01/2023 Acute ITP ([facility] V24, [facility] V28) 02/02/2023 Encounters Date Type Department Care Team Description 10/28/2024 9:30 AM EDT - 10/28/2024 11:59 PM EDT Hospital Encounter [facility] [address] [place] [phone] Fabián Suárez MD Acute ITP ([facility] V24, [facility] V28) (Primary Dx) Discharge Disposition: Home or Self Care 10/21/2024 9:14 AM EDT - 10/21/2024 11:59 PM EDT Hospital Encounter [facility] [address] [place] [phone] Fabián Suárez MD Acute ITP ([facility] V24, [facility] V28) (Primary Dx) Discharge Disposition: Home or Self Care 10/14/2024 9:15 AM EDT - 10/14/2024 11:59 PM EDT Hospital Encounter [facility] [address] [place] [phone] Fabián Suárez MD Acute ITP ([facility] V24, [facility] V28) (Primary Dx) Discharge Disposition: Home or Self Care 10/07/2024 9:16 AM EDT - 10/07/2024 11:59 PM EDT Hospital Encounter [facility] [address] [place] [phone] Fabián Suárez MD Acute ITP ([facility]/HCC V24, [facility]/HCC V28) (Primary Dx) Discharge Disposition: Home or Self Care 10/01/2024 Telephone [facility] Hematology Oncology [address] [place] [phone] Fabián Suárez MD 09/30/2024 9:18 AM EDT - 09/30/2024 11:59 PM EDT Hospital Encounter [facility] [address] [place] [phone] Fabián Suárez MD Acute ITP ([facility]/HCC V24, [facility]/HCC V28) (Primary Dx) Discharge Disposition: Home or Self Care 09/27/2024 Telephone [facility] Hematology Oncology [address] [place] [phone] Fabián Suárez MD 09/23/2024 9:13 AM EDT - 09/23/2024 11:59 PM EDT Hospital Encounter [facility] [address] [place] [phone] Fabián Suárez MD Acute ITP ([facility] V24, [facility] V28) (Primary Dx) Discharge Disposition: Home or Self Care 09/18/2024 10:45 AM EDT - 09/18/2024 11:59 PM EDT Hospital Encounter [facility] CT Scan [address] [place] [phone] Encounter for screening for malignant neoplasm of respiratory organs; Personal history of nicotine dependence Discharge Disposition: Home or Self Care 09/16/2024 9:25 AM EDT - 09/16/2024 11:59 PM EDT Hospital Encounter [facility] [address] [place] [phone] Fabián Suárez MD Acute ITP ([facility] V24, [facility] V28) (Primary Dx) Discharge Disposition: Home or Self Care 09/09/2024 9:30 AM EST - 09/09/2024 11:59 PM EST Hospital Encounter [facility] [address] [place] [phone] Fabián Suárez MD Acute ITP ([facility] V24, [facility] V28) (Primary Dx) Discharge Disposition: Home or Self Care 09/09/2024 9:15 AM EST Office Visit [facility] Hematology Oncology [address] [place] [phone] Fabián Suárez MD Acute ITP ([facility] V24, [facility] V28) (Primary Dx); Class 3 severe obesity due to excess calories with serious comorbidity and body mass index (BMI) of 50.0 to 59.9 in adult ([facility] V24, [facility] V28); Dehydration; Steroid-induced hyperglycemia 09/06/2024 10:30 AM EST Office Visit Pulmonolgy - [place] 175 [facility] 200 [place] [phone] Leisa Infante MD COPD with asthma ([facility] V24, [facility] V28) (Primary Dx); SHAWN (obstructive sleep apnea); Lung nodules; Ex-smoker 09/02/2024 9:27 AM EST - 09/02/2024 11:59 PM EST Hospital Encounter [facility] [address] [place] [phone] Fabián Suárez MD Acute ITP ([facility] V24, [facility] V28) (Primary Dx) Discharge Disposition: Home or Self Care 08/20/2024 Telephone Lung Screening Program - [place] [address] [facility] [address] [place] [phone] Pati Germain [place] Appointment (1st Notification) 08/19/2024 9:27 AM EST - 08/19/2024 11:59 PM EST Hospital Encounter [facility] [address] [place] [phone] Fabián Suárez MD Acute ITP ([facility] V24, [facility] V28) (Primary Dx) Discharge Disposition: Home or Self Care 08/19/2024 Lab Requisition [facility] - Main Lab [address] [facility] [place] [phone] Jose Carlos Ponce MD prison (current) use of unspecified immunomodulators and immunosuppressants 08/12/2024 9:24 AM EST - 08/12/2024 11:59 PM EST Hospital Encounter [facility] [address] [place] [phone] Acute ITP ([facility] V24, CMS/[facility] V28) (Primary Dx) Discharge Disposition: Home or Self Care 08/05/2024 9:25 AM EST - 08/05/2024 11:59 PM EST Hospital Encounter [facility] [address] [place] [phone] Fabián Suárez MD Acute ITP ([facility] V24, [facility] V28) (Primary Dx) Discharge Disposition: Home or [...] memo COPD (chronic obstructive pu lmonary disease) ([facility] V24, [facility] V28) 11/13/2017 DX:COPD (chronic o bstructive pulmonary disease) ([facility]) Family History Medical History Relation Name Comments [...] ed Within the last 3 months, ho babita many times did you visit the emergency [...] for your loved ones. For example, childcare worker or elderly care for an older adult? [...] Care Team (Late st Contact Info) Description 11/01/2024 11:45 AM EDT Office Visit Internal Medicine - [place] 175 [facility] 200 [place] [phone] Kaushal Shaw MD 175 [facility] [place] [address] 11/04/2024 10:00 AM EDT Appointment [facility] [address] [facility] 2nd [place] [phone] 12/11/2024 10:30 AM EDT Office Visit [facility] Hematology Oncology [address] [place] [phone] Fabián Suárez MD [address] [place] [address] 03/06/2025 11:30 AM EDT Office Visit Pulmonolgy - [place] 175 [facility] 200 [place] [phone] Leisa Infante MD 175 [facility] 200 [place] [address] Health Maintenance Due Date Last Done Comments [...] ASPARTATE AMINOTRANSFERASE Routine 08/19/2024 9:50 AM EST termite control representative (current) use of unspecified immunomodulators and immunosuppressants ALANINE AMINOTRANSFERASE Routine 08/19/2024 9:50 AM EST termite control representative (current) use of unspecified immunomodulators and immunosuppressants [...] K/mcL LAB HEMETOLOGY METHOD 10/28/2024 11:09 AM [facility] RBC 4.30 3.80 - 4.80 M/mcL LAB HEMETOLOGY METHOD 10/28/2024 11:09 AM EDT [facility] Hemoglobin 13.4 11.5 - 16.0 g/dL LAB HEMETOLOGY METHOD 10/28/2024 11:09 AM [facility] Hematocrit 40.5 35.0 - 47.0 % LAB HEMETOLOGY METHOD 10/28/2024 11:09 AM [facility] MCV 94.2 79.0 - 98.0 FL LAB HEMETOLOGY METHOD 10/28/2024 11:09 AM [facility] MCH 31.2 27.0 - 32.0 pcg LAB HEMETOLOGY METHOD 10/28/2024 11:09 AM [facility] MCHC 33.1 32.0 - 37.0 g/dL LAB HEMETOLOGY METHOD 10/28/2024 11:09 AM [facility] RDW 13.8 11.0 - 15.0 % LAB HEMETOLOGY METHOD 10/28/2024 11:09 AM [facility] Platelets 158 130 - 400 K/mcL LAB HEMETOLOGY METHOD 10/28/2024 11:09 AM [facility] MPV 11.7(H) 7.0 - 11.0 FL LAB HEMETOLOGY METHOD 10/28/2024 11:09 AM [facility] NRBC 0.0 <1.0 % LAB HEMETOLOGY METHOD 10/28/2024 11:09 AM [facility] NRBC Absolute 0.00 <0.10 K/mcL LAB HEMETOLOGY METHOD 10/28/2024 11:09 AM [facility] Neutrophils Relative 58.6 % LAB HEMETOLOGY METHOD 10/28/2024 11:09 AM [facility] Lymphocytes Relative 29.2 % LAB HEMETOLOGY METHOD 10/28/2024 11:09 AM [facility] Monocytes Relative 8.7 % LAB HEMETOLOGY METHOD 10/28/2024 11:09 AM [facility] Eosinophils Relative 2.4 % LAB HEMETOLOGY METHOD 10/28/2024 11:09 AM [facility] Basophils Relative 0.7 % LAB HEMETOLOGY METHOD 10/28/2024 11:09 AM [facility] Immature Granulocytes Relative 0.4 % LAB HEMETOLOGY METHOD 10/28/2024 11:09 AM EDT [facility] Neutrophils Absolute 6.23 1.50 - 7.00 K/mcL LAB HEMETOLOGY METHOD 10/28/2024 11:09 AM EDT [facility] Lymphocytes Absolute 3.09 1.00 - 5.00 K/mcL LAB HEMETOLOGY METHOD 10/28/2024 11:09 AM EDT [facility] Monocytes Absolute 0.92 0.20 - 1.00 K/mcL LAB HEMETOLOGY METHOD 10/28/2024 11:09 AM EDT [facility] Eosinophils Absolute 0.25 0.00 - 0.50 K/[facility] LAB HEMETOLOGY METHOD 10/28/2024 11:09 AM EDT [facility] Basophils Absolute 0.07 0.00 - 0.20 K/mcL LAB HEMETOLOGY METHOD 10/28/2024 11:09 AM EDT [facility] Immature Granulocytes Absolute 0.04(H) 0.00 - 0.03 K/[facility] LAB HEMETOLOGY METHOD 10/28/2024 11:09 AM EDT [facility] Blood Venous blood specimen / Unknown Venipuncture / Unknown 10/28/2024 9:38 AM EDT 10/28/2024 11:02 AM EDT Fabián Suárez MD LAB BLOOD ORDERABLE S Final Result [facility] [address] [place] [address], * Lavender tube (10/28/2024 9:38 AM EDT) Extra Tube Hold for add-ons. 10/28/2024 12:01 PM EDT [facility] Comment:Auto resulted. Blood Venous blood specimen / Unknown 10/28/2024 9:38 AM EDT 10/28/2024 10:06 AM EDT us Subramony Subramant-Kanu CARMICHAEL LAB BLOOD ORDERABLE S Final Result [facility] [address] [place] [address], [place] [phone] * CT Lung Screening (09/18/2024 10:55 AM [...] Signed Date: 09/18/2024 13:07 ET Workstation ID: [id number] Transcribed By: Self Edit Transcribed Date: 09/18/2024 [...] Signed Date: 09/18/2024 13:07 ET Workstation ID: [id number] Transcribed By: Self Edit Transcribed Date: 09/18/2024 13:03 ET Rajinder Ozuna MD [facility] CT PROCEDURES Final Result * (ABNORMAL) Comprehensive metabolic panel (09/02/2024 10:02 AM EST) Sodium 141 133 - 145 mmol/L LAB CHEMISTRY METHOD 09/02/2024 10:46 AM [facility] Potassium 3.7 3.5 - 5.5 mmol/L LAB CHEMISTRY METHOD 09/02/2024 10:46 AM [facility] Chloride 107 96 - 110 mmol/L LAB CHEMISTRY METHOD 09/02/2024 10:46 AM [facility] CO2 24 21 - 32 mmol/L LAB CHEMISTRY METHOD 09/02/2024 10:46 AM [facility] Anion Gap 10 3 - 11 LAB CHEMISTRY METHOD 09/02/2024 10:46 AM [facility] Glucose 121(H) 70 - 100 mg/dL LAB CHEMISTRY METHOD 09/02/2024 10:46 AM [facility] BUN 11 5 - 25 mg/dL LAB CHEMISTRY METHOD 09/02/2024 10:46 AM [facility] Creatinine 0.66 0.50 - 1.10 mg/dL LAB CHEMISTRY METHOD 09/02/2024 10:46 AM [facility] LAB eGFR 97 >=60 mL/min/1. 73m2 LAB CHEMISTRY METHOD 09/02/2024 10:46 AM [facility] Comment:Calculation based on the??Chronic Kidney Disease Epidemiology Collaboration (CKD-EPI) equation refit??without adjustment for race. BUN/Creatinine Ratio 16.7 LAB CHEMISTRY METHOD 09/02/2024 10:46 AM [facility] Calcium 9.5 8.5 - 10.5 mg/dL LAB CHEMISTRY METHOD 09/02/2024 10:46 AM [facility] AST (SGOT) 9(L) 10 - 42 unit/L LAB CHEMISTRY METHOD 09/02/2024 10:46 AM [facility] ALT (SGPT) 19 10 - 60 unit/L LAB CHEMISTRY METHOD 09/02/2024 10:46 AM [facility] Alkaline Phosphatase 63 42 - 121 unit/L LAB CHEMISTRY METHOD 09/02/2024 10:46 AM [facility] Total Protein 7.6 6.0 - 8.0 g/dL LAB CHEMISTRY METHOD 09/02/2024 10:46 AM [facility] Albumin 3.6 3.2 - 5.0 g/dL LAB CHEMISTRY METHOD 09/02/2024 10:46 AM [facility] Total Bilirubin 0.5 0.0 - 1.4 mg/dL LAB CHEMISTRY METHOD 09/02/2024 10:46 AM [facility] Blood Venous blood specimen / Unknown Venipuncture / Unknown 09/02/2024 10:02 AM EST 09/02/2024 10:14 AM EST Fabián Suárez MD LAB BLOOD ORDERABLE S Final Result [facility] [address] [place] [address], * Alanine aminotransferase (08/19/2024 9:50 AM EST) ALT (SGPT) 19 10 - 60 unit/L LAB CHEMISTRY METHOD 08/19/2024 10:35 AM EST [facility] Blood Venous blood specimen / Unknown 08/19/2024 9:50 AM EST 08/19/2024 10:07 AM EST Jose Carlos Ponce MD LAB BLOOD ORDERABLES Padmini l Result Performing Organization Address [facility] Co de Phone Number [facility] [address] [place] [address], * (ABNORMAL) Aspartate aminotransferase (08/19/2024 9:50 AM EST) Pathologist [facility] AST (SGOT) 9(L) 10 - 42 unit/L LAB CHEMISTRY METHOD 08/19/2024 10:35 AM EST [facility] Blood Venous blood specimen / Unknown 08/19/2024 9:50 AM EST 08/19/2024 10:07 AM EST Jose Carlos Ponce MD LAB BLOOD ORDERABLES Padmini l Result Performing Organization Address [facility]/ZIP Co de Phone Number [facility] [address] [place] [address], [place] [phone] * SCREENING MAMMOGRAPHY BI 2-VIEW BREAST INC [...] Breast cancer risk category Low (<15%) Location: [facility], [address] [place] [address], [address], [phone] Procedure Note Kassandra Morataya MD - 05/07/2024 [...] Breast cancer risk category Low (<15%) Location: [facility], [address] [place] [address], [address], [phone] Farrah Felder MD IMG XR PROCEDURES Final Result from Last 3 Months or Most Recently Relevant to Health Maintenance Insurance [facility] MEDICARE Care Teams Human Resources Clerk Relationship Specialty Start Date End Date Farrah Felder MD 175 [facility] 200 [place] [address] PCP - General Internal Medicine 05/13/24
--- OUTSIDE RECORDS SUMMARY | 2024-11-01 11:15 | XMS_ITS | Encounter Summary ---
Author Organization [facility] [place] [address] Care Team Providers Care Data Collector Name Role Phone Farrah Felder MD Primary Care Provider [phone] Encounter Details Date Type Department Care Team [...] your loved ones. For example, child care sitter or elderly care for an older adult? [...] 11:45 AM EDT Office Visit Internal Medicine [facility] [address] [phone] Kaushal Shaw MD [address] [address] 11/04/2024 10:00 AM EDT Appointment [facility] Infusion Center [address] [facility] 2nd [place] [address] 12/11/2024 10:30 AM EDT Office Visit [facility] Hematology Oncology [address] [place] [phone] Michelle-Fabián Bobby MD [address] [place] [address] 03/06/2025 11:30 AM EDT Office Visit Pulmonolgy - [place] [address] [phone] Leisa Infante MD [address] [place] [address] [place] [address] documented as of this encounter Procedures Procedure Name Priority Date/Time Associated Diagnosis Comments ..MISCELLANEOUS REFERENCE LAB TEST 04/15/2024 documented in this encounter Results * Miscellaneous reference lab test (04/15/2024) us Provider Onbase LAB BLOOD ORDERABLES Final Re sult documented in this encounter Visit Diagnoses Diagnosis Immune thrombocytopenic purpura ([facility] V24, [facility] V28) Immune thrombocytopenic purpura documented in this encounter Care Teams Data Collector Relationship Specialty Start Date End Date Farrah Felder MD PCP - General Internal Medicine 12/03/21 05/12/24 documented as of this encounter
--- OUTSIDE RECORDS SUMMARY | 2024-11-01 11:15 | XMS_ITS | Encounter Summary ---
Author Organization [facility] Address [address] [place] [address] Care Team Providers Care Help Desk Agent Name Role Phone Farrah Felder MD Primary Care Provider [phone] Encounter Details Date Type Department Care Team (Latest Contact Info) Description 08/19/2024 Lab Requisition [facility] - Main Lab [address] [facility] [address] [place] [address] Jose Carlos Ponce MD [address] [place] [phone] design studio consultant (current) use of unspecified immunomodulators and immunosuppressants [...] care for your loved ones. For example, childrens club attendant or elderly care for an older adult? [...] AM EDT Office Visit Internal Medicine - [place] [address] [phone] Kaushal Shaw MD [address] [address] 11/04/2024 10:00 AM EDT Appointment [facility] Infusion Center [address] [facility] 2nd [place] [address] 12/11/2024 10:30 AM EDT Office Visit [facility] Hematology Oncology [address] [place] [phone] Fabián Suárez MD 271 [place] [address] 03/06/2025 11:30 AM EDT Office Visit Pulmonolgy - [place] [address] [phone] Leisa Infante MD [address] [address] documented as of this encounter Procedures Procedure Name Priority Date/Time Associated Diagnosis Comments ALANINE AMINOTRANSFERASE Routine 08/19/2024 9:50 AM EST [facility] (current) use of unspecified immunomodulators and immunosuppressants ASPARTATE AMINOTRANSFERASE Routine 08/19/2024 9:50 AM EST [facility] (current) use of unspecified immunomodulators and immunosuppressants documented in this encounter Results * (ABNORMAL) Aspartate aminotransferase (08/19/2024 9:50 AM EST) AST (SGOT) 9(L) 10 - 42 unit/L LAB CHEMISTRY METHOD 08/19/2024 10:35 AM EST [facility] Blood Venous blood specimen / Unknown 08/19/2024 9:50 AM EST 08/19/2024 10:07 AM EST us Jose Carlos Ponce MD LAB BLOOD ORDERABLES Padmini l Result Performing Organization Address [facility]/ZIP Co de Phone Number [facility] [address] [place] [address], [place] [phone] * Alanine aminotransferase (08/19/2024 9:50 AM EST) ALT (SGPT) 19 10 - 60 unit/L LAB CHEMISTRY METHOD 08/19/2024 10:35 AM EST [facility] Blood Venous blood specimen / Unknown 08/19/2024 9:50 AM EST 08/19/2024 10:07 AM EST us Jose Carlos Ponce MD LAB BLOOD ORDERABLES Padmini l Result Performing Organization Address [facility] de Phone Number [facility] [address] [place] [address], [place] [phone] documented in this encounter Visit Diagnoses Diagnosis [facility] (current) use of unspecified immunomodulators and immunosuppressants documented in this encounter Additional Health Concerns Assessment Noted Time PHQ-9 Depression Total Score: 1 07/11/19 25 3:06 PM EST documented as of this encounter Care Teams Help Desk Agent Relationship Specialty Start Date End Date Farrah Felder MD [address] [place] [phone] PCP - General Internal Medicine 05/13/24 documented as of this encounter
--- OUTSIDE RECORDS SUMMARY | 2024-11-01 11:15 | XMS_ITS | Clinical Summary ---
Author Organization [facility] Address [address] [place] [address] Care Team Providers Care Sap Solution Manager Consultant Name Role Phone Farrah Felder MD Primary Care Provider [phone] Allergies Active Allergy Reactions Criticality Noted Date [...] age to complete this topic Care Teams Sap Solution Manager Consultant Relationship Specialty Start Date End Date Farrah Felder MD 175 [facility] 200 [place] [address] PCP - General Internal Medicine 01/31/23
--- OUTSIDE RECORDS SUMMARY | 2024-11-01 11:15 | XMS_ITS | Encounter Summary ---
Author Organization [facility] [place] [address] Care Team Providers Care Pressure Vessel Inspector Name Role Phone Farrah Felder MD Primary Care Provider [phone] Encounter Details Date Type Department Care Team [...] for your loved ones. For example, child center assistant or elderly care for an older adult? [...] Upcoming Encounters Date Type Department Care Team ([facility] st Contact Info) Description 11/01/2024 11:45 AM EDT Office Visit Internal Medicine [facility] [address] [phone] Kaushal Shaw MD [address] [address] 11/04/2024 10:00 AM EDT Appointment [facility] Infusion Center [address] [facility] 2nd [place] [address] 12/11/2024 10:30 AM EDT Office Visit [facility] Hematology Oncology [address] [place] [phone] Michelle-Fabián Bobby MD 271 [place] [address] 03/06/2025 11:30 AM EDT Office Visit Pulmonolgy - [place] [address] [phone] Leisa Infante MD [address] [address] documented as of this encounter Visit Diagnoses Not on filedocumented in this encounter Care Teams Pressure Vessel Inspector Relationship Specialty Start Date End Date Farrah Felder MD PCP - General Internal Medicine 12/03/21 05/12/24 documented as of this encounter
--- OUTSIDE RECORDS SUMMARY | 2024-11-01 11:15 | XMS_ITS | Encounter Summary ---
Author Organization [facility] [place] [address] Care Team Providers Care Reformatory Attendant Name Role Phone Farrah Felder MD Primary Care Provider [phone] Encounter Details Date Type Department Care Team [...] your loved ones. For example, child development specialist or elderly care for an older [...] 11:45 AM EDT Office Visit Internal Medicine [address] [phone] Kaushal Shaw MD [address] [place] [address] 11/04/2024 10:00 AM EDT Appointment [facility] [address] [place] [address] 2nd [place] [address] 12/11/2024 10:30 AM EDT Office Visit [facility] Hematology Oncology [address] [place] [phone] Fabián Suárez MD [address] [place] [phone] 03/06/2025 11:30 AM EDT Office Visit Pulmonolgy [address] [phone] Leisa Infante MD [address] [place] [address] documented as of this encounter Visit Diagnoses Not on filedocumented in this encounter Care Teams Reformatory Attendant Relationship Specialty Start Date End Date Farrah Felder MD PCP - General Internal Medicine 12/03/21 05/12/24 documented as of this encounter
--- OUTSIDE RECORDS SUMMARY | 2024-11-01 11:15 | XMS_ITS | Encounter Summary ---
Author Organization [facility] [place] [address] Care Team Providers Care Tow Bar Driver Name Role Phone Farrah Felder MD Primary Care Provider [phone] Encounter Details Date Type Department Care Team [...] care for your loved ones. For example, children librarian or elderly care for an older adult? [...] AM EDT Office Visit Internal Medicine - [place] [address] [phone] Kaushal Shaw MD 175 [facility] 200 [place] [address] 11/04/2024 10:00 AM EDT Appointment [facility] In[facility] Center [address] [facility] 2nd [place] [address] 12/11/2024 10:30 AM EDT Office Visit [facility] Hematology Oncology [address] [place] [phone] Subramonia-Fabián Bobby MD [address] [place] [address] 03/06/2025 11:30 AM EDT Office Visit Pulmonolgy - [place] [address] [phone] Leisa Infante MD [address] [address] documented as of this encounter Visit Diagnoses Not on filedocumented in this encounter Care Teams Tow Bar Driver Relationship Specialty Start Date End Date Farrah Felder MD PCP - General Internal Medicine 12/03/21 05/12/24 documented as of this encounter
--- OUTSIDE RECORDS SUMMARY | 2024-11-01 11:15 | XMS_ITS | Encounter Summary ---
Author Organization [facility] Address [address] [place] [address] Care Team Providers Care Hand Bender Name Role Phone Farrah Felder MD Primary Care Provider [phone] Reason for Visit * Episode Based Medications (Routine) - Authorized Specialty Diagnoses / Procedures Referred By Contac t Referred To Contact Diagnoses Acute ITP (CMS/HCC V24, CMS/HCC V28) Fabián Suárez MD [address] [place] [address] Phone: tel: fax: [facility] [address] [place] [phone] Phone: tel: fax: Referral ID Status Reason Start Date Expiration Date V isits Requested Visits Authorized [id number] Authorized 05/08/2024 05/08/2025 1 113 Encounter Details Date Type Department Care Team (Latest Contact Info) Description 10/28/2024 9:30 AM EDT - 10/28/2024 11:59 PM EDT Hospital Encounter [facility] [address] [place] [phone] Fabián Suárez MD [address] [place] [address] Acute ITP (CMS/HCC V24, CMS/HCC V28) (Primary Dx) Discharge Disposition: Home or Self Care Social History Tobacco Use Types Packs/Day Years [...] your loved ones. For example, child care aide or elderly care for an older adult? [...] Index - - documented in this encounter Medications at Time of Discharge acetaminophen (TYLENOL) 325 mg tablet Take 2 tablets (650 mg total) by mouth every 8 (eight) hours if needed for mild pain. albuterol HFA (PROAIR HFA ; PROVENTIL HFA ; VENTOLIN HFA) 90 mcg/actuation inhaler Inhale 2 puffs by mouth every 6 (six) hours if needed for wheezing. 6.7 g 11 07/18/2024 amLODIPine (NORVASC) 5 mg tablet Take 1 tablet (5 mg total) by mouth daily. budesonide-formo teroL (Breyna) 160-4.5 mcg/actuation inhalerIndicatio ns:COPD with asthma (CMS/HCC V24, CMS/HCC V28) Inhale 2 puffs by mouth 2 (two) times a day. Rinse mouth with water after use to reduce aftertaste and incidence of candidiasis. Do not swallow. 3 each 3 09/07/2024 budesonide-formo teroL (SYMBICORT) 160-4.5 mcg/actuation inhaler INHALE 2 PUFFS INTO THE LUNGS TWICE DAILY 04/24/2023 clindamycin (CLEOCIN) 300 mg capsule Take 1 capsule (300 mg total) by mouth every 8 (eight) hours. 10/12/2024 cyanocobalamin (VITAMIN B-12) 250 mcg tablet Take 1 tablet (250 mcg total) by mouth 1 (one) time each day. ferrous sulfate 325 mg (65 mg elemental iron) tablet Take 1 tablet (325 mg total) by mouth 1 (one) time each day with breakfast. folic acid (FOLVITE) 1 mg tablet Take 1 tablet (1,000 mcg total) by mouth 1 (one) time each day. 07/31/2024 hydroCHLOROthiaz mac (HYDRODIURIL) 25 mg tablet Take 1 tablet (25 mg total) by mouth 1 (one) time each day. ipratropium (ATROVENT) 0.02 % nebulizer solution 08/11/2023 ketoconazole (NIZORAL) 2 % cream Apply topically 2 (two) times a day. losartan (COZAAR) 50 mg tablet Take 2 tablets (100 mg total) by mouth daily. methotrexate 2.5 mg tablet TAKE 4 TABLETS BY MOUTH EVERY WEEK 09/17/2024 montelukast (SINGULAIR) 10 mg tablet Take 1 tablet (10 mg total) by mouth at bedtime. 90 tablet 3 06/26/2024 semaglutide (OZEMPIC) 2 mg/dose (8 mg/3 mL) injection pen Inject 2 mg under the skin every 7 (seven) days. 3 mL 3 10/21/2024 tiotropium (Spiriva with HandiHaler) 18 mcg per inhalation capsuleIndicatio ns:COPD with asthma (CMS/HCC V24, CMS/HCC V28) Place 1 capsule (18 mcg total) into inhaler and inhale 1 (one) time each day. 3 each 3 09/07/2024 tiotropium (SPIRIVA) 18 mcg per inhalation capsule INHALE CONTENTS OF 1 CAPSULE ONCE DAILY IN THE MORNING USING HANDIHALER 04/21/2023 TURMERIC ORAL Take 2,000 mg by mouth. documented as of this encounter Discharge Disposition Disposition Code Departure Means Destination Home or Self Care documented in this encounter Progress Notes * [...] 11:45 AM EDT Office Visit Internal Medicine [facility] [address] [phone] Kaushal Shaw MD [address] [address] 11/04/2024 10:00 AM EDT Appointment [facility] [address] [facility] 2nd [place] [address] 12/11/2024 10:30 AM EDT Office Visit [facility] Hematology Oncology [address] [place] [phone] Fabián Suárez MD [address] [place] [address] 03/06/2025 11:30 AM EDT Office Visit Pulmonolgy - [place] [address] [phone] Leisa Infante MD [address] [place] [address] documented as of this encounter Procedures Procedure Name Priority Date/Time Associated Diagnosis Comments EXTRA TUBES Routine 10/28/2024 9:38 AM EDT CBC WITH AUTO DIFFERENTIAL STAT 10/28/2024 9:38 AM EDT Acute ITP ([facility] V24, [facility] V28) LAVENDER - EDTA Routine 10/28/2024 9:38 AM EDT CBC AND DIFFERENTIAL STAT 10/28/2024 9:38 AM EDT Acute ITP ([facility] V24, [facility] V28) documented in this encounter Results * (ABNORMAL) CBC auto differential (10/28/2024 9:38 AM EDT) WBC 10.6 4.8 - 10.8 K/mcL LAB HEMETOLOGY METHOD 10/28/2024 11:09 AM [facility] RBC 4.30 3.80 - 4.80 M/mcL LAB HEMETOLOGY METHOD 10/28/2024 11:09 AM [facility] Hemoglobin 13.4 11.5 - 16.0 g/dL LAB HEMETOLOGY METHOD 10/28/2024 11:09 AM [facility] Hematocrit 40.5 35.0 - 47.0 % LAB HEMETOLOGY METHOD 10/28/2024 11:09 AM [facility] MCV 94.2 79.0 - 98.0 FL LAB HEMETOLOGY METHOD 10/28/2024 11:09 AM [facility] MCH 31.2 27.0 - 32.0 pcg LAB HEMETOLOGY METHOD 10/28/2024 11:09 AM [facility] MCHC 33.1 32.0 - 37.0 g/dL LAB HEMETOLOGY METHOD 10/28/2024 11:09 AM [facility] RDW 13.8 11.0 - 15.0 % LAB HEMETOLOGY METHOD 10/28/2024 11:09 AM [facility] Platelets 158 130 - 400 K/mcL LAB HEMETOLOGY METHOD 10/28/2024 11:09 AM [facility] MPV 11.7(H) 7.0 - 11.0 FL LAB HEMETOLOGY METHOD 10/28/2024 11:09 AM [facility] NRBC 0.0 <1.0 % LAB HEMETOLOGY METHOD 10/28/2024 11:09 AM [facility] NRBC Absolute 0.00 <0.10 K/mcL LAB HEMETOLOGY METHOD 10/28/2024 11:09 AM [facility] Neutrophils Relative 58.6 % LAB HEMETOLOGY METHOD 10/28/2024 11:09 AM [facility] Lymphocytes Relative 29.2 % LAB HEMETOLOGY METHOD 10/28/2024 11:09 AM [facility] Monocytes Relative 8.7 % LAB HEMETOLOGY METHOD 10/28/2024 11:09 AM [facility] Eosinophils Relative 2.4 % LAB HEMETOLOGY METHOD 10/28/2024 11:09 AM [facility] Basophils Relative 0.7 % LAB HEMETOLOGY METHOD 10/28/2024 11:09 AM [facility] Immature Granulocytes Relative 0.4 % LAB HEMETOLOGY METHOD 10/28/2024 11:09 AM [facility] Neutrophils Absolute 6.23 1.50 - 7.00 K/mcL LAB HEMETOLOGY METHOD 10/28/2024 11:09 AM [facility] Lymphocytes Absolute 3.09 1.00 - 5.00 K/mcL LAB HEMETOLOGY METHOD 10/28/2024 11:09 AM EDT [facility] Monocytes Absolute 0.92 0.20 - 1.00 K/[facility] LAB HEMETOLOGY METHOD 10/28/2024 11:09 AM EDT [facility] Eosinophils Absolute 0.25 0.00 - 0.50 K/[facility] LAB HEMETOLOGY METHOD 10/28/2024 11:09 AM EDT [facility] Basophils Absolute 0.07 0.00 - 0.20 K/[facility] LAB HEMETOLOGY METHOD 10/28/2024 11:09 AM EDT [facility] Immature Granulocytes Absolute 0.04(H) 0.00 - 0.03 K/[facility] LAB HEMETOLOGY METHOD 10/28/2024 11:09 AM EDT [facility] Blood Venous blood specimen / Unknown Venipuncture / Unknown 10/28/2024 9:38 AM EDT 10/28/2024 11:02 AM EDT us Subrammaribell Suárez MD LAB BLOOD ORDERABLE S Final Result [facility] [address] [place] [address], [place] [phone] * Lavender tube (10/28/2024 9:38 AM EDT) Extra Tube Hold for add-ons. 10/28/2024 12:01 PM EDT [facility] Comment:Auto resulted. Blood Venous blood specimen / Unknown 10/28/2024 9:38 AM EDT 10/28/2024 10:06 AM EDT us Fabián Suárez MD LAB BLOOD ORDERABLE S Final Result [facility] [address] [place] [address], [place] [phone] documented in this encounter Visit Diagnoses Diagnosis Acute ITP ([facility] V24, [facility] V28)- Primary Immune thrombocytopenic purpura documented in this encounter Administered Medications Inactive Administered Medications - up to 3 most recent administrations Medication Order MAR Action Action Date Dose Rate Site romiPLOStim (NPLATE) injection 125 mcg 125 mcg (rounded from 129 mcg = 1 mcg/kg ? 129 kg), subcutaneous, Once, On Mon10/28/24 at 1145, For 1 doseIndications:Acute ITP (CMS/[facility] V24, CMS/[facility] V28) Given 10/28/2024 11:47 AM EDT 125 [...] Time PHQ-9 Depression Total Score: 1 07/11/19 3:06 PM EST documented as of this encounter Care Teams Hand Bender Relationship Specialty Start Date End Date Farrah Felder MD 175 [facility] [address] [place] [address] PCP - General Internal Medicine 05/13/24 documented as of this encounter
--- OUTSIDE RECORDS SUMMARY | 2024-11-01 11:15 | XMS_ITS | Encounter Summary ---
Author Organization [facility] Address [address] [place] [address] Care Team Providers Care Technical Communication Teacher Name Role Phone Farrah Felder MD Primary Care Provider Encounter Details Date Type Department Care Team ([facility] Contact Info) Description 07/01/2024 Lab Requisition [facility] - [facility] Lab [address] [facility] [place] [address] Jose Carlos Ponce MD [address] [place] [phone] Rheumatoid arthritis, unspecified (CMS/HCC V24, CMS/HCC [...] AM EDT Office Visit Internal Medicine - [place] [address] [phone] Kaushal Shaw MD [address] [address] 11/04/2024 10:00 AM EDT Appointment [facility] 271 [facility] 2nd [place] [address] 12/11/2024 10:30 AM EDT Office Visit [facility] Hematology Oncology [address] [place] [phone] Fabián Suárez MD 271 [place] [phone] 03/06/2025 11:30 AM EDT Office Visit Pulmonolgy - [place] [address] [phone] Leisa Infante MD [address] [address] documented as of this encounter Procedures Procedure Name Priority Date/Time Associated Diagnosis Comments CREATININE, SERUM Routine 07/01/2024 9:5 2 AM EST Rheumatoid arthritis, unspecified (CMS/HCC) Other residential (current) drug therapy SEDIMENTATION RATE Routine 07/01/2024 9: 52 AM EST Rheumatoid arthritis, unspecified (CMS/HCC) Other doctor of optometry (current) drug therapy C-REACTIVE PROTEIN Routine 07/01/2024 9: 52 AM EST Rheumatoid arthritis, unspecified (CMS/HCC) Other doctor of optometry (current) drug therapy ALANINE AMINOTRANSFERASE Routine 9:52 AM EST Rheumatoid arthritis, unspecified (CMS/HCC) Other residential (current) drug therapy ASPARTATE AMINOTRANSFERASE Routine 07/01/2024 9:52 AM EST Rheumatoid arthritis, unspecified (CMS/HCC) Other doctor of optometry (current) drug therapy documented in this encounter Results * Creatinine (07/01/2024 9:52 AM EST) Creatinine 0.72 0.50 - 1.10 mg/dL LAB CHEMISTRY METHOD 07/01/2024 11:23 AM EST [facility] eGFR 92 >=60 mL/min/1. 73m2 LAB CHEMISTRY METHOD 07/01/2024 11:23 AM EST [facility] Comment:Calculation based on the??Chronic Kidney Disease Epidemiology Collaboration (CKD-EPI) equation refit??without adjustment for race. Blood Venous blood specimen / Unknown 07/01/2024 9:52 AM EST 07/01/2024 10:30 AM EST Jose Carlos Ponce MD LAB BLOOD ORDERABLES Padmini l Result Performing Organization Address City/[facility]/ZIP Co de Phone Number [facility] [address] [place] [address], [place] [phone] * Alanine aminotransferase (07/01/2024 9:52 AM EST) ALT (SGPT) 20 10 - 60 unit/L LAB CHEMISTRY METHOD 07/01/2024 11:23 AM EST [facility] Blood Venous blood specimen / Unknown 07/01/2024 9:52 AM EST 07/01/2024 10:30 AM EST Jose Carlos Ponce MD LAB BLOOD ORDERABLES Padmini l Result [facility] [address] [place] [address], [place] [phone] * Aspartate aminotransferase (07/01/2024 9:52 AM EST) AST (SGOT) 10 10 - 42 unit/L LAB CHEMISTRY METHOD 07/01/2024 11:23 AM EST [facility] Blood Venous blood specimen / Unknown 07/01/2024 9:52 AM EST 07/01/2024 10:30 AM EST us Jose Carlos Ponce MD LAB BLOOD ORDERABLES Padmini l Result Performing Organization Address [facility]/ZIP Co de Phone Number [facility] [address] [place] [address], [place] [phone] * (ABNORMAL) Sedimentation rate (07/01/2024 9:52 AM EST) Pathologist [facility] Sed Rate 70(H) 0 - 30 mm/hr LAB HEMETOLOGY METHOD 07/01/2024 11:03 AM EST [facility] Blood Venous blood specimen / Unknown 07/01/2024 9:52 AM EST 07/01/2024 10:30 AM EST us Jose Carlos Ponce MD LAB BLOOD ORDERABLES Padmini l Result Performing Organization Address [facility] Co de Phone Number [facility] [address] [place] [address], [place] [phone] * (ABNORMAL) C-reactive protein (07/01/2024 9:52 AM EST) Pathologist [facility] C-Reactive Protein 0.98(H) <=0.50 mg/dL LAB CHEMISTRY METHOD 07/01/2024 11:23 AM EST [facility] Blood Venous blood specimen / Unknown 07/01/2024 9:52 AM EST 07/01/2024 10:30 AM EST us Jose Carlos Ponce MD LAB BLOOD ORDERABLES Padmini l Result Performing Organization Address City/[facility]/ZIP Co de Phone Number [facility] [address] [place] [address], [place] [phone] documented in this encounter Visit Diagnoses Diagnosis Rheumatoid arthritis, unspecified (CMS/HCC V24, CMS/HCC V28) Other doctor of optometry (current) drug therapy documented in this encounter Care Teams Technical Communication Teacher Relationship Specialty Start Date End Date Farrah Felder MD [address] [place] [phone] PCP - General Internal Medicine 05/13/24 documented as of this encounter
--- OUTSIDE RECORDS SUMMARY | 2024-11-01 11:15 | XMS_ITS | Data Portability ---
Author Organization [facility], [address] Address [address] [place] [address] Care Team Providers Care Glueline Worker Name Role Phone VANDANA HO Primary Care Provider Assessment No assessment recorded. Plan of Treatment Reminders Order Date Submit Date Provider Last Modified By Organization Details Last Modified Time Details Appointments None recorded. Lab None recorded. Referral emergency medicine referral 2022 023 [email or web address] [facility] Emergency Department, [address] [place], [address], 10:49:32 pulmonolog ist referral 2022 023 [email or web address] Not available 10:12:55 Procedures None recorded. Surgeries None recorded. Imaging None recorded. Medication Orders albuterol sulfate 2.5 mg/3 mL (0.083 %) solution for nebulizati on 2022 023 [email or web address] 47 Not available 3 10:48:28 albuterol sulfate 2.5 mg/3 mL (0.083 %) solution for nebulizati on 2022 023 [email or web address] 47 Not available 10:48:28 ipratropiu m bromide 0.02 % solution for inhalation 2022 023 [email or web address] 47 Not available 10:48:28 prednisone 10 mg tablet 2022 023 [email or web address] 47 [facility] #[id number], [address] [facility], [place], [phone], 3 10:48:28 ipratropiu m 0.5 mg-albuter ol 3 mg (2.5 mg base)/3 mL nebulizati on soln 2022 023 [email or web address] 47 [facility] [employer] [facility] #51960, [address] [place], [id number], 3 10:48:28 albuterol sulfate HFA 90 mcg/actuat ion aerosol inhaler 2022 023 [email or web address] [facility] [employer] [facility] #13450, [address] [place], [phone], 3 10:07:26 prednisone 20 mg tablet 2022 023 [facility][id number], [address] [place], [id number], 3 09:01:51 doxycyclin e hyclate 100 mg capsule 2022 023 [facility] #[id number], 1 [facility] [address] [place], [id number], 3 10:06:00 Patient TargetsNo targets recorded. Patient Instructions Encounter Date Encounter Id Patient Instructions Last Modified By Organization Details Last Modified Time 12/28/2022 [id number] cough: care instructions Not available 12/28/2022 10:05:51 chronic obstructive pulmonary disease (COPD): care instructions Not available 12/28/2022 10:06:04 01/10/2023 [id number] peak flow* [email or web address] Not available 0 01/10/2023 10:48:30 Call your PCP to schedule a follow up appointment within the next 1 week. Follow up with your body technician/painter appointment scheduled for 01/25/2023. --- How to [...] 1 tablet Day 12 take 1 tablet [email or web address] Not available 01/10/2023 10:03:38 If you have [...] needed or if symptoms have not improved. [email or web address] Not available 01/10/2023 10:48:23 Reason for Referral Industrial Waste Treatment Technician Referral for A cute exacerbation of chronic [...] Pre (L/min) 120 Not Available [email or web address] [place], [address], 01/10/2023 09:22:22 01/11/20 23 01/10/2023 peak flow* Post (L/min) 120 Not Available [email or web address] [place], [address], 01/10/2023 09:22:22 01/11/20 23 01/10/2023 peak flow* Pulse 101 Not Available [facility] [address] [place], [address], 01/10/2023 09:22:22 01/11/20 23 01/10/2023 peak flow* Oxygen Saturation 96 Not Available [address] [place], [address], 01/10/2023 09:22:22 Result Notes None recorded. Problems Name Problem SNOMED Code Status Onset Date Resolution Date Notes Provider Name and Address Organization Details Recorded Time Chronic obstructive pulmonary disease 80748827 Active 2016 SHIELA ngo [place] - [facility] 3 09:22:01 Hypertensive disorder 98822840 Active 2022 SHIELA ngo [facility] - [facility] [...] Name and Address Organization Details Recorded Time 806050 Bactrim medicatio n rash Not available Not available 12/28/2022 75501 9 RxNorm SHIELA ngo, [facility] - [facility] [...] Updated DateTime 3 163.83 cm 48.7 kg/m2 328081. 6 g 20 /min 98.1 [degF] 82 [...] Updated DateTime 3 163.83 cm 47.7 kg/m2 527880. 05 g 20 /min 0 107 /min [...] SNOMED-CT Code Diagnosis ICD10 Code Diagnosis Note [id number] [facility] [address] [place] [phone] 01/30/2018 17:14:16 01/30/2018 18:51:11 [id number] 20995[facility] [address] [place] [address] 03/26/2015 18:27:54 03/26/2015 19:48:23 [id number] Connor Faust MD [facility] [address] [place] [address] 12/28/2022 08:44:48 12/28/2022 10:12:00 Acute exacerbation of chronic obstructive pulmonary disease 635682577 J44.1 Please follow up with PCP or Urgent Care in 3-5 days if no improvemen t or if any new symptoms occur that are concerning .Call 911 or go to nearest ER if you develop any shortness of breath, chest pain, severe headache, dizziness, or other concerning symptoms [id number] FATIMAH ALVARADO MD _[facility] [address] [facility] [place] [phone] 01/10/2023 08:50:28 01/10/2023 10:49:32 Acute exacerbation of chronic obstructive pulmonary disease 352922891 J44.1 Though she responded to the nebulizer [...] Richardson Member ID Guarantor Name 03/26/2015 1 [employer] 111 Shruthi R Kynard [id number] Shruthi Kynard 01/30/2018 1 [employer] 111 Shruthi R Kynard [id number] Shruthi Kynard 12/28/2022 1 [employer] 111 Shruthi R Kynard [id number] Shruthi Kynard 01/10/2023 1 [employer] 111 Shruthi R Kynard [id number] Shruthi Kynard Notes Date Note Type Note Provider [...] Connor Faust MD [address] [place], [address], [place] - [facility] 12/28/2022 10:10:48 01/10/2023 [...] 01/25/2023. She went on vacation to the [facility] and started having SOB that got worse over time. She just returned yesterday. Her SOB has worsened. FATIMAH ALVARADO MD [address] [place], [address], [place] - [facility] 01/11/2023 16:49:40 OBGyn Episode No OBEpisode recorded.
[2024-11-01 13:25] LABS: Basophils Absolute Auto 0.1 X10*3/uL (0.0-0.2); Basophils Percent Auto 0.5 % (0-2); Eosinophils Absolute Auto 0.1 X10*3/uL (0.0-0.4); Hematocrit 41.9 % (37.0-47.0); Imm Gran Abs Auto 0.06 X10*3/uL (0.00-0.03); Imm Gran Pct Auto 0.5 % (0.0-0.4); Lymphocytes Absolute Auto 3.2 X10*3/uL (1.2-4.9); Lymphocytes Percent Auto 27.6 % (20-40); MANUAL DIFF FLAG SCAN; Mean Corpuscular HGB Conc 33.4 g/dl (31.0-35.0); Mean Corpuscular Hemoglobin 30.8 pg (27.0-33.0); Mean Corpuscular Volume 92.3 fL (80.0-98.0); Monocytes Percent Auto 8.7 % (2-11); Neutrophils Absolute Auto 7.1 x10*3/uL (2.0-8.3); Neutrophils Percent Auto 61.7 % (45-73); PLT CLUMP 1; Red Blood Count 4.54 X10*6/uL (4.20-5.50); Red Cell Distribution Width 13.6 % (11.0-16.0); SCAN SMEAR FLAG 1
[2024-11-01 13:32] LABS: Alanine Aminotransferase 15 U/L (0-31); Aspartate Amino Transferase 15 U/L (5-31); Estimated Glomerular Filt Rate > 60
[2024-11-01 13:57] LABS: HBc Num1 0.19 S/CO (0.00-0.79); HBsAGNum1 0.29 S/CO (0.00-0.99); Hepatitis B Core Antibody Nonreactive (Nonreactive); Hepatitis B Surface Antigen Negative (Negative); ~HepC Num1 0.08 S/CO (0.00-0.79); ~Hepatitis B Surface Antibody NONREACTIVE (Nonreactive); ~Hepatitis C Antibody Nonreactive (Nonreactive)
[2024-11-01 14:13] LABS: White Blood Count 11.5 X10*3/uL (4.8-10.8)
[2024-11-01 14:15] LABS: SLIDE REVIEW VERIFIED
== END 2024-11-01 10:37 | disposition home or self-care (01) ==
LOC: HO.HMGCLDS 10:36
PROVIDERS: PCP Internal Medicine; Visit Provider Internal Medicine Rheumatology
DX: M06.9 Rheumatoid arthritis, unspecified (principal); Z79.60 Long term (current) use of unspecified immunomodulators and immunosuppressants
CPT/HCPCS: 36415; 82565; 84450; 84460; 85025; 86704; 86706; 86803; 87340